=== PATIENT | female | born 1960 | race Caucasian/White ===

== ENCOUNTER → 2017-08-19 15:30 | Outpatient (CLI) | payer OTHER, SELFPAY ==
[2017-08-19 15:32] LABS: Bacteria 0 SEEN /hpf (None Seen); Mucous, Urine 0 SEEN /hpf (<or=2+)
[2017-08-19 15:57] LABS: Color, Urine Amber (Yellow); Glucose, Dipstick Normal (Normal); Ketone-Dipstick Negative (Negative); Leukocyte Esterase-Dipstick 100 /ul (Negative); Nitrite-Dipstick Negative (Negative); Occult Blood-Urine 250 /ul (Negative); Protein-Dipstick 30 mg/dl (Negative); Urine Bilirubin Dipstick Negative (Negative); Urine Clarity Cloudy (Clear); Urine Urobilinogen Normal (Normal); Urine pH 6.5 (5.0 - 8.0)
[2017-08-19 16:10] LABS: Amorphous Sediment 1+ URATE; Red Blood Cells-Urine 50-100 SEEN /hpf (0-5); Squamous Epithelial Cells - UA 5-10 SEEN /hpf (5-10); White Blood Cells 10-25 SEEN /hpf (0-5)
== END ==
PROVIDERS: Family Provider Preventive Medicine Occupational Medicine; PCP Preventive Medicine Occupational Medicine; Visit Provider Physician Assistant Surgical
DX: R30.0 Dysuria (principal)
CPT/HCPCS: 81001; 87086; 87088; 87186

== ENCOUNTER 2017-09-02 19:17 | Emergency (ER) | payer OTHER, SELFPAY ==
[2017-09-02 19:18] VITALS: BP 145/91; PULSE 93; RESP 18; TEMP 36.8; O2SAT 98; BMI 26.4
--- NOTE | 2017-09-02 19:40 | RAD_ITS ---
STUDY: X-RAY - RIGHT HAND REASON FOR EXAM: Female, 57 years old. Trauma TECHNIQUE: 3 view(s) of the hand. COMPARISON: None. FINDINGS: There is no evidence of fracture or dislocation. There are no significant degenerative changes. There are no radiodense foreign bodies. RAD/Hand Min 3 Views IMPRESSION: No fracture or dislocation. Electronically Signed: Massimo Mcmullen, at 20:02 EDT Tel , Service support ,
--- NOTE | 2017-09-02 20:16 | ED.DCSUM_ITS ---
- ER Visit Summary Date of Service: 09/02/17 Chief Complaint: Right hand pain History of Present Illness: The patient is a 57 F who presents with a right hand injury. She was running with her dog who went in front of her and she tripped and fell onto her right hand. She also scraped her right shoulder and right knee but states that those do not really hurt and is not really worried about those injuries. She is mainly concerned about her right hand. She has swelling and abrasion near the fifth finger. She states her pain is well controlled after applying ice. Physical Examination: Afebrile vitals are unremarkable Heart regular Lungs clear Soft tissue swelling with overlying abrasion over the right fifth MCP. Active full range of motion normal opposition of the digits normal sensation light touch and brisk capillary refill no wrist tenderness Test Results: Hand x-ray shows no fracture or dislocation Emergency Department Course and Treatment: Patient's pain is well controlled. She was advised on supportive care including rest ice elevation and anti- inflammatory use. She was discharged. Her tetanus is up-to-date. Treatment Plan: [] Disposition: Discharge Impression: Right hand contusion This note was generated with [employer] dictation software. It may contain incorrect words, spelling, and punctuation that were not noted in review of the chart prior to signing ED Disposition - Plan for ED Patient: Chief Complaint: Upper Extremity Injury Referrals: Carl Conklin DO [Primary Care Provider] -
--- NOTE | 2017-09-02 20:16 | ED.DEP ---
ED Disposition - Plan for ED Patient: Chief Complaint: Upper Extremity Injury Instructions: ED Contusion Upper Ext Referrals: Carl Conklin DO [Primary Care Provider] -
== END 2017-09-02 20:26 | disposition home or self-care (01) ==
PROVIDERS: Emergency Provider Emergency Medicine; Family Provider Preventive Medicine Occupational Medicine; PCP Preventive Medicine Occupational Medicine
DX: S60.221A Contusion of right hand, initial encounter (principal); W01.0XXA Fall on same level from slipping, tripping and stumbling without subsequent striking against object, initial encounter; Y93.02 Activity, running; Y92.9 Unspecified place or not applicable; Y99.9 Unspecified external cause status; G43.909 Migraine, unspecified, not intractable, without status migrainosus; Z79.82 Long term (current) use of aspirin; Z79.899 Other long term (current) drug therapy
CPT/HCPCS: 73130; 99282

== ENCOUNTER → 2018-01-10 07:55 | Outpatient (CLI) | payer BC, SELFPAY ==
--- NOTE | 2018-01-10 07:58 | BI_ITS ---
MAMMOGRAPHY - BILATERAL SCREENING REASON FOR EXAM: Female, 58 years old. Routine annual screening examination. PERTINENT HISTORY: Non-contributory. TECHNIQUE: Digital bilateral breast kate (3D mammographic acquisition) in the CC and MLO projections. 2-D mediolateral oblique (MLO) and craniocaudad (CC) views of both breasts were obtained. CAD: Full Field Digital Mammography with Computer Added Detection was performed. COMPARISON: Comparison is made with prior study dated October 17, 2016 and September 01, 2013. FINDINGS: Breast Composition: There are scattered areas of fibroglandular density. There are no dominant masses or suspicious calcifications. No other significant abnormalities are identified. There has been no significant change since the prior study. BI/SCREENING MAMM (CAD), BILAT IMPRESSION: Stable bilateral screening mammogram. Yearly follow-up mammogram recommended. (A) ASSESSMENT CATEGORY: BIRADS Category 1: Negative. A letter regarding these results will be sent to the patient by the facility within 30 days. Approximately 10% of breast cancers are not detected by mammography. A normal mammogram should not delay biopsy of a clinically suspicious abnormality. [id number] Electronically Signed: Dejon Schroeder MD at 9:24 EST Tel [phone], Service support ,
--- OUTSIDE RECORDS SUMMARY | 2018-03-06 18:56 | XMS RPT_ITS ---
:1960 Author Organization OHIP Care Team Providers Name Role Phone LYNDA CONKLIN Primary Care Unavailable DR. YAS ASENCIO DO Attending Unavailable LYNDA CONKLIN Attending Unavailable LYNDA CONKLIN Primary Care Unavailable Aaron Bruno Attending Unavailable Lynda Conklin Referring Unavailable Lynda Conklin Primary Care Unavailable Aaron Bruno Attending Unavailable Lynda Conklin Primary Care Unavailable Aaron Bruno Referring Unavailable Lynda Conklin Primary Care Unavailable Brandan Gautam Attending Unavailable Lynda Conklin Attending Unavailable Lynda Conklin Primary Care Unavailable Lynda Conklin Referring Unavailable PROBLEMS PROBLEMS DATE TYPE CONDITION / CODE ATTENDING STATUS SOURCE 10/07/2017 Admitting Generalized LYNDA CONKLIN [facility] Diagnosis hyperhidrosis / Foundation R61(ICD-10) Repository 10/07/2017 Admitting Encounter for MISALYNDA ARIAS [facility] Diagnosis screening for [facility] diseases of the Repository blood and blood-forming organs and certain disorders inv / Z13.0(ICD-10) 10/07/2017 Admitting Encounter for MISALYNDA Posada [facility] Diagnosis screening for [facility] diabetes mellitus / Repository Z13.1(ICD-10) 08/20/2017 Unknown R30.0 - Dysuria / Aaron Bruno Active Rick R30.0(ICD-10) [facility] Repository 08/19/2017 Unknown N39.0 - Urinary Aaron Bruno Active Rick tract infection, Community site not specified Hospital / N39.0(ICD-10) Repository 04/25/2017 Admitting Encounter for ELIF WU DR. Active [facility] Diagnosis general adult [facility] medical examination Repository without abnormal findings / Z00.00(ICD-10) PROCEDURES PROCEDURES No Procedure Records FoundRESULTS RESULTS SCREENING MAMM (CAD), Observed: 01/10/2018 Status: F Source: [facility] [place] 7:58 AM [facility] REPOSITORY [facility] Imaging Services [address] [facility] [place] [address] SCREENING MAMM (CAD), BILAT MR#: [id number] Acct: [id number] Name: XANDER PARRA Rep #: [id number] : 1960 F 57 From: Dejon Schroeder MD PCP: Lynda Conklin DO Status: REG CLI Study: SCREENING MAMM (CAD), BILAT Date of Exam: 01/10/18 Exam# [id number] Ordering Dr: Lynda Conklin DO MAMMOGRAPHY - BILATERAL SCREENING REASON FOR EXAM: Female, 58 years old. Routine annual screening examination. PERTINENT HISTORY: Non-contributory. TECHNIQUE: Digital bilateral breast kate (3D mammographic acquisition) in the CC and MLO projections. 2-D mediolateral oblique (MLO) and craniocaudad (CC) views of both breasts were obtained. CAD: Full Field Digital Mammography with Computer Added Detection was performed. COMPARISON: Comparison is made with prior study dated October 17, 2016 and September 01, 2013. FINDINGS: Breast Composition: There are scattered areas of fibroglandular density. There are no dominant masses or suspicious calcifications. No other significant abnormalities are identified. There has been no significant change since the prior study. BI/SCREENING MAMM (CAD), BILAT IMPRESSION: Stable bilateral screening mammogram. Yearly follow-up mammogram recommended. (A) ASSESSMENT CATEGORY: BIRADS Category 1: Negative. A letter regarding these results will be sent to the patient by the facility within 30 days. Approximately 10% of breast cancers are not detected by mammography. A normal mammogram should not delay biopsy of a clinically suspicious abnormality. [id number] Electronically Signed: Dejon Schroeder MD at 9:24 EST Tel [phone], Service support , CC: Lynda Conklin DO Back Tender Cloth Printing: Signed TSH Collected: 10/07/2017 Status: F Source: [facility] 9:43 AM [facility] EMERGENCY DEPARTMENT REPOSITORY TYPE CODE TESTS RESULT OUT OF RANGE REFERENCE UNITS LAB TSH(LOINC) 0.36-3.74 mcIU/mL TSH 1.68 Performed By: #### TSH, CRPHS, ESR, GFR, CMP #### [address] [address] #### CBC, ANEU, ADIFF #### [address] [address] CMP Collected: 10/07/2017 Status: F Source: [facility] 9:43 AM [facility] EMERGENCY DEPARTMENT REPOSITORY TYPE CODE TESTS RESULT OUT OF REFERENCE UNITS RANGE LAB GLU(LOINC) 70-105 mg/dL Glucose Level 96 LAB NA(LOINC) 136-145 mmol/L Sodium Level 141 LAB K(LOINC) 3.5-5.1 mmol/L Potassium Level 4.3 LAB CL(LOINC) 98-107 mmol/L Chloride 105 LAB CO2(LOINC) 22-29 mmol/L CO2 28 LAB EBAL(LOINC mEq/L ) Electrolyte Balance 8.0 LAB BUN(LOINC) 7-18 mg/dL BUN 12 LAB CRE(LOINC) 0.55-1.02 mg/dL Creatinine Lvl (s) 0.80 LAB BC(LOINC) 7-27 ratio BUN/Creatinine 15 Ratio LAB CA(LOINC) 8.4-10.2 mg/dL Calcium Lvl 9.2 LAB PROT(LOINC 6.4-8.2 G/dL ) Total Protein 7.7 LAB ALB(LOINC) 3.5-5.0 G/dL Albumin Level 4.2 LAB GLB(LOINC) G/dL Globulin 3.5 LAB AG(LOINC) 1.1-2.5 ratio A/G Ratio 1.2 LAB BILT(LOINC 0.2-1.0 mg/dL ) Bili Total 0.6 LAB AP(LOINC) 40-135 U/L Alk Phos 76 LAB AST(LOINC) 10-40 U/L AST/SGOT 21 LAB ALT(LOINC) 10-35 U/L ALT/SGPT 33 Performed By: #### TSH, CRPHS, ESR, GFR, CMP #### [place] [address] #### CBC, ANEU, ADIFF #### [address] [address] .GFR Collected: 10/07/2017 Status: F Source: [facility] 9:43 AM [facility] REPOSITORY TYPE CODE TESTS RESULT OUT OF REFERENCE UNITS RANGE LAB GFRAA(LOINC ml/min/1.73 ) sqm GFR 89 Solomon Islander Result Comment: GFR Population mean for , Non- Americans Ages 20-29 = 116 mL/min/1.73 sq.m. Ages 30-39 = 107 mL/min/1.73 sq.m. Ages 40-49 = 99 mL/min/1.73 sq.m. Ages 50-59 = 93 mL/min/1.73 sq.m. Ages 60-69 = 85 mL/min/1.73 sq.m. Ages 70+ = 75 mL/min/1.73 sq.m. Chronic Kidney Disease: Less than 60 mL/min/1.73 square meters End Stage Renal Disease: Less than 15 mL/min/1.73 square meters LAB GFRNO(LOINC) ml/min/1.73sqm GFR Non- 73 Result Comment: GFR Population mean for , Non- Americans Ages 20-29 = 116 mL/min/1.73 sq.m. Ages 30-39 = 107 mL/min/1.73 sq.m. Ages 40-49 = 99 mL/min/1.73 sq.m. Ages 50-59 = 93 mL/min/1.73 sq.m. Ages 60-69 = 85 mL/min/1.73 sq.m. Ages 70+ = 75 mL/min/1.73 sq.m. Chronic Kidney Disease: Less than 60 mL/min/1.73 square meters End Stage Renal Disease: Less than 15 mL/min/1.73 square meters Performed By: #### TSH, CRPHS, ESR, GFR, CMP #### [address] [address] #### CBC, ANEU, ADIFF #### [address] [address] CBC Collected: 10/07/2017 Status: F Source: [facility] 9:43 AM [facility] EMERGENCY DEPARTMENT REPOSITORY TYPE CODE TESTS RESULT OUT OF REFERENCE UNITS RANGE LAB WBC(LOINC) 4.60-10.80 10 3/mcL WBC 5.30 LAB RBCCT(LOINC 4.20-5.40 10 6/mcL ) RBC 4.80 LAB HGB(LOINC) 12.0-16.0 G/dL Hgb 15.1 LAB HCT(LOINC) 37.0-47.0 % Hct 42.9 LAB MCV(LOINC) 80.0-94.0 fL MCV 89.4 LAB MCH(LOINC) 27.0-31.2 pg High MCH 31.6 LAB MCHC(LOINC) 33.0-37.0 G/dL MCHC 35.3 LAB RDW(LOINC) 11.5-14.5 % RDW 13.3 LAB PLT(LOINC) 130-400 10 3/mcL Platelet 191 LAB MPV(LOINC) 7.4-10.4 fL MPV 8.7 Performed By: #### TSH, CRPHS, ESR, GFR, CMP #### [address] [address] #### CBC, ANEU, ADIFF #### [address] [address] .AUTO DIFF Collected: 10/07/2017 Status: F Source: [facility] 9:43 [facility] REPOSITORY TYPE CODE TESTS RESULT OUT OF REFERENCE UNITS RANGE LAB AKTHERYN(LOINC) 37.0-80.0 % Neutrophil % 56.0 LAB LYM(LOINC) 10.0-50.0 % Lymphocyte % 32.6 LAB MON(LOINC) 1.7-13.0 % Monocyte % 7.9 LAB EO(LOINC) 0.0-7.0 % Eosinophil % 3.1 LAB BAS(LOINC) 0.0-2.5 % Basophil % 0.4 LAB ABLYM(LOIN 0.77-3.85 10 3/mcL C) Lymphocyte, 1.70 Absolute LAB DONNA(LOINC 0.15-1.00 10 3/mcL ) Monocyte, 0.40 Absolute LAB AEOS(LOINC 0.00-0.40 10 3/mcL ) Eosinophil, 0.20 Absolute LAB ABAS(LOINC 0.00-0.19 10 3/mcL ) Basophil, 0.00 Absolute Performed By: #### TSH, CRPHS, ESR, GFR, CMP #### [place] [address] #### CBC, ANEU, ADIFF #### [address] [address] .NEUABS Collected: 10/07/2017 Status: F Source: [facility] 9:43 [facility] TYPE CODE TESTS RESULT OUT OF REFERENCE UNITS RANGE LAB ANEU(LOINC) 2.85-6.16 10 3/mcL Neutrophil, 3.00 Absolute Performed By: #### TSH, CRPHS, ESR, GFR, CMP #### [place] [address] #### CBC, ANEU, ADIFF #### [address] [address] CRPHS Collected: 10/07/2017 Status: F Source: [facility] 9:43 [facility] REPOSITORY TYPE CODE TESTS RESULT OUT OF REFERENCE UNITS RANGE LAB CRPHS(LOIN 0.20-3.00 mg/L C) CRP, High Sensitive 2.88 Result Comment: Relative Risk Category and Average hs-CRP Level: Higher Risk: > 5.0 mg/L Guidelines support that hs-CRP can be used as an independent predictor of increased coronary risk; however, hs-CRP results should only be interpreted in conjunction with other cardiac risk factors in establishing overall cardiac risk for a given patient. Performed By: #### TSH, CRPHS, ESR, GFR, CMP #### [address] [address] #### CBC, ANEU, ADIFF #### [place] [address] [place], [place] [address] ESR Collected: 10/07/2017 Status: F Source: [facility] 9:43 AM [facility] REPOSITORY TYPE CODE TESTS RESULT OUT OF REFERENCE UNITS RANGE LAB ESR(LOINC) 0-30 mm/hr Erythrocyte Sed Rate 3 Performed By: #### TSH, CRPHS, ESR, GFR, CMP #### [address] [address] #### CBC, ANEU, ADIFF #### [place] [address] [place], [place] [address] EMERGENCY DEPARTMENT Observed: 09/02/2017 Status: F Source: [facility] 8:16 PM [facility] REPOSITORY [facility] Medical Records Department [address] [place] [address] Emergency Department Summary 09/02/172013 MR#: [id number] Acct: [id number] Name: XANDER PARRA Rep #: [id number] : 1960 57 From: Brandan Gautam MD PCP: Lynda Conklin DO Status: REG ER - ER Visit Summary Date of Service: 09/02/17 Chief Complaint: Right hand pain History of Present Illness: The patient is a 57 F who presents with a right hand injury. She was running with her dog who went in front of her and she tripped and fell onto her right hand. She also scraped her right shoulder and right knee but states that those do not really hurt and is not really worried about those injuries. She is mainly concerned about her right hand. She has swelling and abrasion near the fifth finger. She states her pain is well controlled after applying ice. Physical Examination: Afebrile vitals are unremarkable Heart regular Lungs clear Soft tissue swelling with overlying abrasion over the right fifth MCP. Active full range of motion normal opposition of the digits normal sensation light touch and brisk capillary refill no wrist tenderness Test Results: Hand x-ray shows no fracture or dislocation Emergency Department Course and Treatment: Patient's pain is well controlled. She was advised on supportive care including rest ice elevation and anti-inflammatory use. She was discharged. Her tetanus is up-to-date. Treatment Plan: [] Disposition: Discharge Impression: Right hand contusion This note was generated with Freedcamp dictation software. It may contain incorrect words, spelling, and punctuation that were not noted in review of the chart prior to signing ED Disposition - Plan for ED Patient: Chief Complaint: Upper Extremity Injury Referrals: Lynda Conklin DO [Primary Care Provider] - What to do if you have Problems For any increased pain, shortness of breath, bleeding, nausea or vomiting, chest pain, or any unexpected problems, contact your Primary Care Provider. Call [facility] ([phone]) or report to the closest Emergency Room. Call 911 if necessary. 09/02/172015 <Electronically signed by Brandan Gautam MD> Date Brandan Gautam MD Cosigner Signature (If Indicated): Date CC: Lynda Conklin DO DISCHARGE INSTRUCTION Observed: 09/02/2017 Status: F Source: [facility] 8:16 PM [facility] REPOSITORY [facility] Medical Records Department [address] [place] [address] Discharge Instruction 09/02/172015 MR#: [id number] Acct: [id number] Name: XANDER PARRA Rep #: [id number] : 1960 57 From: Brandan Gautam MD PCP: Lynda Conklin DO Status: REG ER ED Disposition - Plan for ED Patient: Chief Complaint: Upper Extremity Injury Instructions: ED Contusion Upper Ext Referrals: Lynda Conklin DO [Primary Care Provider] - What to do if you have Problems For any increased pain, shortness of breath, bleeding, nausea or vomiting, chest pain, or any unexpected problems, contact your Primary Care Provider. Call [facility] ([phone]) or report to the closest Emergency Room. Call 911 if necessary. 09/02/172015 <Electronically signed by Brandan Gautam MD> Date Brandan Gautam MD Cosigner Signature (If Indicated): Date CC: Lynda Conklin DO HAND MIN 3 VIEWS Observed: 09/02/2017 Status: F Source: [facility] 7:33 PM [facility] REPOSITORY [facility] Imaging Services [address] [place] [address] Hand Min 3 Views MR#: [id number] Acct: [id number] Name: XANDER PARRA Rep #: [id number] : 1960 F 57 From: Massimo Mcmullen MD PCP: Lynda Conklin DO Status: REG ER Study: Hand Min 3 Views Date of Exam: 09/02/17 Exam# [id number] Ordering Dr: Provider, Ed P. STUDY: X-RAY - RIGHT HAND REASON FOR EXAM: Female, 57 years old. Trauma TECHNIQUE: 3 view(s) of the hand. COMPARISON: None. FINDINGS: There is no evidence of fracture or dislocation. There are no significant degenerative changes. There are no radiodense foreign bodies. RAD/Hand Min 3 Views IMPRESSION: No fracture or dislocation. Electronically Signed: Massimo Mcmullen, at 20:02 EDT Tel , Service support , CC: ED PHYSICIAN PROVIDER; Lynda Conklin DO Back Tender Cloth Printing: Signed URINALYSIS, COMPLETE Collected: 08/19/2017 Status: F Source: [facility] 3:31 PM [facility] REPOSITORY Order Comment: COLOR OF URINE MAY AFFECT DIPSTICK RESULTS. How was Urine Obtained? CLEAN CATCH TYPE CODE TESTS RESULT OUT OF RANGE REFERENCE UNITS LAB L400.3000 Yellow COLOR Normal Skyla LAB L400.3050 Clear Normal CLARITY Cloudy LAB L400.3200 Normal mg/dl Normal GLUCOSE, UR Normal LAB L400.3300 Negative mg/dL Normal BILIRUBIN URINE Negative LAB L400.3400 Negative mg/dl Normal KETONE UR Negative LAB L400.3465 1.002-1.030 Normal SP.GR. DIPSTX 1.010 LAB L400.3550 5.0 - 8.0 pH UR Normal 6.5 LAB L400.3600 Negative mg/dl High PROT 30 DIPSTX LAB L400.3700 Normal mg/dl Normal UROBILI Normal LAB L400.3750 Negative Normal NITRITE UR Negative LAB L400.3780 Negative /ul High OCCULT BLOOD-UR 250 LAB L400.3800 Negative /ul High LEUK ESTERASE 100 LAB L400.4050 0-5 /hpf WBC Normal 10-25 SEEN LAB L400.4100 0-5 /hpf Normal RBC-UA 50-100 SEEN LAB L400.4150 5-10 /hpf SQUAM Normal EPI 5-10 SEEN LAB L400.4300 None Seen /hpf 0 Normal BACTERIA SEEN LAB L400.4350 <or=2+ /hpf 0 Normal MUCUS, URINE SEEN LAB L400.4900 1+ Normal AMORPHOUS URATE Performed By: #### L400.0001, M100.0650 #### [facility] [address] [place], [place], [address] Observed: 08/19/2017 Status: F Source: [facility]ICK CULTURE, URINE 3:31 PM [facility] REPOSITORY Urine Culture ORGANISM 1: Presumptive E. coli [place] Count >100,000 Presumptive E. coli: REACTION Amoxacillin/Clavulanic Acid $ <=2 S Ampicillin $ <=2 S Ampicillin/Sulbactam $ <=2 S Cefazolin $ <=4 S Cefepime $ <=1 S Ceftriaxone $ <=1 S Ciprofloxacin $ <=0.25 S ESBL - Ertapenim $$$ <=0.5 S Gentamicin $ <=1 S Imipenem *NF <=0.25 S Levofloxacin $ <=0.12 S Nitrofurantoin $ <=16 S Piperacillin/Tazobactam $$ <=4 S Tobramycin $ <=1 S Trimethoprim/Sulfametho $ <=20 S (NF) indicates non-formulary drug at [facility]. Approval by Infectious Disease Specialist required before non-formulary drugs may be ordered and/or dispensed. Performed By: #### L400.0001, M100.0650 #### [facility] [address] [place], [place], [address] URGENT CARE VISIT Observed: 08/19/2017 Status: F Source: [facility] REPORT 10:37 AM [facility] REPOSITORY [facility] [address] [place] [address] [address] [place], [place] [id number] OFFICE VISIT Date of Service: 08/19/17 MR#: [id number] Acct: [id number] Name: XANDER PARRA Rep #: [id number] : 1960 Provider: Aaron ROMAN Age/Sex: 57/F [facility] [facility] Status: Signed Intake Vital Signs08/19/17 Height 5 ft 6 in 08/19/17 Weight: 157 lb 08/19/17 Body Mass Index (BMI) 25.3 08/19/17 Blood Pressure 122/74 Intake Visit Reasons: Urinary tract infection Certified Nurse Aide Required: No Is patient in pain?: No Allergies No Known Allergies Allergy (Verified 08/19/17 09:04) Medications Aspirin [Aspirin, Baby] 81 mg PO QHS 03/17/16 [History Confirmed 08/19/17] Sumatriptan Succinate [Imitrex] 100 mg PO DAILY PRN PRN 03/17/16 [History Confirmed 08/19/17] nitrofurantoin monohydrate/macrocrystals 100 mg capsule 1 cap PO Q12H 7 Days #14 cap 08/19/17 [Rx Confirmed 08/19/17] phenazopyridine 100 mg tablet 100 mg PO TID PRN 0 Days #7 tab 08/19/17 [Rx Confirmed 08/19/17] PFSH Surgical History History of (Acute) History of hysterectomy (Acute) Social History Smoking Status: Never smoker alcohol intake: never HPI HPI Details: XANDER PARRA, is a 57 F who presents to the office today for complaint of dysuria, urinary frequency and new onset hematuria. Patient states she has had these symptoms for the past 2-3 days with the hematuria starting this morning. She also reports a history of UTIs with similar type symptoms. She denies any abdominal or pelvic pain. She does however complain of some dull low back pain. She denies any loss of bowel or bladder control. No fever, chills, sweats. No nausea, vomiting, diarrhea. No other associated symptoms or alleviating/aggravating factors. ROS Const Constitutional: No body ache, chills or fever(s) Resp Respiratory: No shortness of breath Cardio Cardiology: No lightheadedness, palpitations or irregular heart rhythm Gastro GI: No abdominal pain Genitourinary-Female: Positive for burning urination, painful urination, urinary frequency, blood in urine and urinary urgency; no pelvic pain or painful intercourse Neuro Neurology: No confusion or behavioral changes Psych Psychiatric: No confusion, No behavioral changes Exam Const General: cooperative, healthy appearing Resp Effort AND Inspection: normal respiratory effort Auscultation: Bilateral: Clear to Auscultation Cardio Rate: regular rate Rhythm: regular rhythm GI Auscultation: normal bowel sounds General: No CVA tenderness Psych Appearance: grossly normal Mental Status: mental status grossly normal Results [facility] Office Urine Color SKYLA Last Edit by Harriet Rhoades on 08/19/17 09:17 Assessment AND Plan 1. Acute cystitis with hematuria N30.01 Status Acute Plan Macrobid and Pyridium as prescribed today. Encouraged to get plenty of rest, drink lots of clear liquids, and use Tylenol or Ibuprofen (unless contraindicated) for fever and comfort. Patient also educated on other symptomatic management techniques. To be seen in 7-10 days if no improvement; sooner if worsening of symptoms. Patient advised of potential red flags and when appropriate report to the ED. Patient verbalized understanding of all the above. This note was generated with Freedcamp dictation software. It may contain incorrect words, spelling, and punctuation that were not noted in checking the note before signing. Plan Detail Other Orders Orders: Other Medications New: nitrofurantoin monohyd/m-cryst 100 mg administer with a meal1 cap PO Q12H 7 days N39.0 /food; swallow whole; do not open, crush, dissolve , or chew Coding Level of Care Code Off vis,new,level 3 Diagnoses Acute cystitis with hematuria N30.01 Urinary tract infection type: acute cystitis Hematuria presence: with hematuria 08/19/17 1037 <Electronically signed by Aaron ROMAN> Date Aaron ROMAN Cosigner Signature: Date (if applicable) CC: .GFR Collected: 04/25/2017 Status: F Source: [facility] [facility] 9:38 AM [facility] EMERGENCY DEPARTMENT REPOSITORY TYPE CODE TESTS RESULT OUT OF REFERENCE UNITS RANGE LAB GFRAA(LOINC ml/min/1.73 ) sqm GFR 99 Solomon Islander Result Comment: GFR Population mean for , Non- Americans Ages 20-29 = 116 mL/min/1.73 sq.m. Ages 30-39 = 107 mL/min/1.73 sq.m. Ages 40-49 = 99 mL/min/1.73 sq.m. Ages 50-59 = 93 mL/min/1.73 sq.m. Ages 60-69 = 85 mL/min/1.73 sq.m. Ages 70+ = 75 mL/min/1.73 sq.m. Chronic Kidney Disease: Less than 60 mL/min/1.73 square meters End Stage Renal Disease: Less than 15 mL/min/1.73 square meters LAB GFRNO(LOINC) ml/min/1.73sqm GFR Non- >60 Result Comment: GFR Population mean for , Non- Americans Ages 20-29 = 116 mL/min/1.73 sq.m. Ages 30-39 = 107 mL/min/1.73 sq.m. Ages 40-49 = 99 mL/min/1.73 sq.m. Ages 50-59 = 93 mL/min/1.73 sq.m. Ages 60-69 = 85 mL/min/1.73 sq.m. Ages 70+ = 75 mL/min/1.73 sq.m. Chronic Kidney Disease: Less than 60 mL/min/1.73 square meters End Stage Renal Disease: Less than 15 mL/min/1.73 square meters Performed By: #### GFR, LIPID, CMP #### [place] [address] [place], [place] [address] CMP Collected: 04/25/2017 Status: F Source: [place] 9:38 AM [facility] REPOSITORY TYPE CODE TESTS RESULT OUT OF REFERENCE UNITS RANGE LAB 1547-9 70-105 mg/dL GLUCOSE 94 LAB NA(LOINC) 136-146 mEq/L Sodium Level 140 LAB K(LOINC) 3.5-5.1 mEq/L Potassium Level 4.6 LAB CL(LOINC) 98-107 mEq/L Chloride 104 LAB CO2(LOINC) 22-29 mEq/L CO2 29 LAB EBAL(LOINC mEq/L ) Electrolyte Balance 7.0 LAB BUN(LOINC) 7.0-18.0 mg/dL BUN 10.1 LAB CRE(LOINC) 0.6-1.2 mg/dL Creatinine Lvl (s) 0.7 LAB BC(LOINC) 7-27 ratio BUN/Creatinine 14 Ratio LAB CA(LOINC) 8.4-10.2 mg/dL Calcium Lvl 9.2 LAB PROT(LOINC 6.0-8.3 G/dL ) Total Protein 7.0 LAB ALB(LOINC) 3.5-5.0 G/dL Albumin Level 4.5 LAB GLB(LOINC) G/dL Globulin 2.5 LAB AG(LOINC) 1.1-2.5 ratio A/G Ratio 1.8 LAB BILT(LOINC 0.2-1.0 mg/dL ) Bili Total 0.4 LAB AP(LOINC) 40-135 IU/L Alk Phos 80 LAB AST(LOINC) 10-40 IU/L AST/SGOT 20 LAB ALT(LOINC) 10-35 IU/L ALT/SGPT 25 Performed By: #### GFR, LIPID, CMP #### [place] [address] [place], [place] [address] LIPID Collected: 04/25/2017 Status: F Source: [facility] 9:38 AM [facility] REPOSITORY TYPE CODE TESTS RESULT OUT OF REFERENCE UNITS RANGE LAB CHOL(LOINC 131-200 mg/dL ) Cholesterol High 225 Result Comment: Cholesterol Reference Interval: Less than 200 Desirable 200-239 Borderline high risk 240 and above High risk LAB TRIG(LOINC) 40-150 mg/dL Triglycerides 78 Result Comment: Triglyceride Reference Interval: Less than 150 Normal 150-199 Borderline high risk 200-499 High risk 500 or higher Very high risk LAB HD(LOINC) 35-90 mg/dL HDL Cholesterol 70 Result Comment: HDL Reference Interval: Less than 40 Low - high risk 60 or above Optimal/lowers risk LAB LDL(LOINC) 0-130 mg/dL LDL High Cholesterol 139 Result Comment: LDL is a calculated result and requires a 12-hr fast. LDL Reference Interval: Less than 100 Optimal 100-129 Near or above optimal 130-159 Borderline high risk 160-189 High risk 190 and above Very high risk Performed By: #### GFR, LIPID, CMP #### [place] [address] [place], [place] [address] ALLERGIES ALLERGIES DATE TYPE / CODE NAME / CODE REACTION SEVERITY SOURCE 09/02/2017 Drug No Known Unknown [facility] Allergy/4160 Allergies/F00 Hospital 23900(SNOMED [id number](RXNOR Repository CT) M) ENCOUNTERS ENCOUNTERS ADMIT/DISCHARGE ACCOUNT NUMBER ADMITTING ENCOUNTER LOCATION SOURCE CLASS 01/10/2018 [id number] Ambulatory [facility] ding:OPBI Repository 10/07/2017/10/12/19 [id number] Ambulatory DIONNA Dionna [address] [place] [address] ding:[facility] Repository 09/02/2017/09/03/19 [id number] Emergency [address] ding:ED Repository 08/19/2017 [id number] Ambulatory [facility] ding:LABSPEC Repository 08/19/2017/08/20/19 [id number] Ambulatory BMSBuilding: [address] Repository 04/25/2017/04/30/19 [id number] Ambulatory BBuilding:DR Dionna[address] Repository PAYERS PAYERS ENCOUNTER GUARANTOR PAYER SUBSCRIBER SOURCE 01/10/2018 CICI D Primary CICI D [place] [id number] Insurance:Ki MENDOSAELMANDOB: Community PARTRIDGE Number: [id number] [id number] Repository [place] [address]Gqd: Date:[id number] [address]IS[place]JU[place], [place] () [id number]: 01/10/2018 Secondary NOT GIVENUNK Rick Insurance:SELF PAY [facility] Number: Effective Repository Date:2017-12-01 10/07/2017 Critical access hospital MUSSELMANDOB: Insurance:TOM INGA DASHMANDOB: [facility] [id number] Repository [place] Number: [facility]LY [facility], [id number] [place], [place] [address]Msc: Date:2017-10-07 - [place] [address]Who: [id number] () Name:[facility] BOX ()Tel: [phone], [place] 000-0000 () 41909OO: 09/02/2017 Cici D Primary Cici D [place] [id number] Insurance:ANTHDANIAL DashmanDOB: [facility] [place] EXCHANGE PLANPolic [id number], Number: Repository [place] [address]Lxd: [id number] Date:[id number] BOX () [id number], [place] [address]JP: 09/02/2017 Secondary NOT GIVENUNK Rick Insurance:SELF PAY [facility] Number: Effective Repository Date:2017-09-02 08/19/2017 Cici D Primary Cici D [place] [id number] Insurance:ANTHEM IndyelmanDOB: [facility] [place] [facility] [id number], Number: Repository [place] [id number]: [id number] Date:[id number] BOX () [id number] [place] [address]LQ: 08/19/2017 Secondary NOT GIVENUNK Rick Insurance:SELF PAY [facility] Number: Effective Repository Date:2017-08-19 08/19/2017 [place] [address] Insurance:ANTHEM MusselmanDOB: [facility] [place] [facility] [id number] [facility], Number: Repository [place] [address]Efx: [id number] Date:[id number] BOX () [id number] [place] [address]FJ: 08/19/2017 Secondary NOT GIVENUNK [place] Insurance:SELF PAY [facility] Number: Effective Repository Date:2017-08-19 04/25/2017 Critical access hospital MUSSELMANDOB: Insurance:ANTHEM BLUE MUSSELMANDOB: [facility] CROSS COMMERCIALPolicy [id number] Repository [place] Number: [place] [facility], [id number] [facility], [place] [address]Rht: Date:2016-08-24 [place] [address]Nyn: [id number] () Name:KEVIN HONG ()Tel: [phone], [place] 000-0000 () [id number]:
== END ==
PROVIDERS: Family Provider Preventive Medicine Occupational Medicine; PCP Preventive Medicine Occupational Medicine; Referring Provider Preventive Medicine Occupational Medicine; Visit Provider Preventive Medicine Occupational Medicine
DX: Z12.31 Encounter for screening mammogram for malignant neoplasm of breast (principal)
CPT/HCPCS: 77063; 77067

== ENCOUNTER → 2019-01-25 07:16 | Outpatient (CLI) | payer BC, SELFPAY ==
--- NOTE | 2019-01-25 07:19 | BI_ITS ---
MAMMOGRAPHY - BILATERAL SCREENING REASON FOR EXAM: Female, 59 years old. Routine annual screening examination. PERTINENT HISTORY: Non-contributory. TECHNIQUE: Digital bilateral breast sam (3D mammographic acquisition) in the CC and MLO projections. 2-D mediolateral oblique (MLO) and craniocaudad (CC) views of both breasts were obtained. CAD: Full Field Digital Mammography with Computer Added Detection was performed. COMPARISON: Comparison is made with prior study dated January 10, 2018 and October 17, 2016. FINDINGS: Breast Composition: There are scattered areas of fibroglandular density. There are no dominant masses or suspicious calcifications. No other significant abnormalities are identified. There has been no significant change since the prior study. BI/SCREEN MAMM (CAD) W/SAM BILAT IMPRESSION: Stable bilateral screening mammogram. Yearly follow-up mammogram recommended. (A) ASSESSMENT CATEGORY: BIRADS Category 1: Negative. A letter regarding these results will be sent to the patient by the facility within 30 days. Approximately 10% of breast cancers are not detected by mammography. A normal mammogram should not delay biopsy of a clinically suspicious abnormality. [id number] Electronically Signed: Dejon Schroeder, at 8:29 EST , Service support ,
== END ==
PROVIDERS: Family Provider Preventive Medicine Occupational Medicine; PCP Preventive Medicine Occupational Medicine; Referring Provider Preventive Medicine Occupational Medicine; Visit Provider Preventive Medicine Occupational Medicine
DX: Z12.31 Encounter for screening mammogram for malignant neoplasm of breast (principal)
CPT/HCPCS: 77063; 77067

== ENCOUNTER → 2019-02-17 14:29 | Outpatient (CLI) | payer BC, SELFPAY ==
[2019-02-16 17:27] VITALS: BMI 26.4
[2019-02-17 14:38] LABS: Mucous, Urine 0 SEEN /hpf (<or=2+); Red Blood Cells-Urine 0 SEEN /hpf (0-5)
[2019-02-17 14:49] LABS: Color, Urine Yellow (Yellow); Glucose, Dipstick Normal (Normal); Ketone-Dipstick 15 mg/dl (Negative); Leukocyte Esterase-Dipstick 500 /ul (Negative); Nitrite-Dipstick Negative (Negative); Occult Blood-Urine Negative /ul (Negative); Protein-Dipstick Negative (Negative); Specific Gravity, Urine 1.025 (1.002-1.030); Urine Clarity Sl. Cloudy (Clear); Urine Urobilinogen 1 mg/dl (Normal)
[2019-02-17 14:50] LABS: Urine Bilirubin Dipstick 1 mg/dL (Negative)
[2019-02-17 14:55] LABS: Bacteria 1+ /hpf (None Seen); Squamous Epithelial Cells - UA 0-5 SEEN /hpf (5-10); White Blood Cells 25-50 SEEN /hpf (0-5)
== END ==
PROVIDERS: Family Provider Preventive Medicine Occupational Medicine; PCP Preventive Medicine Occupational Medicine; Referring Provider Physician Assistant; Visit Provider Physician Assistant
DX: R10.9 Unspecified abdominal pain (principal)
CPT/HCPCS: 81001; 87086; 87088; 87186

== ENCOUNTER 2019-12-21 20:35 | Emergency (ER) | payer BC, SELFPAY ==
[2019-03-14 11:33] VITALS: BMI 26.4
[2019-12-21 20:36] VITALS: BP 153/90; PULSE 80; RESP 18; TEMP 36.6; O2SAT 99; BMI 25.0
[2019-12-21 20:40] VITALS: BP 153/90; PULSE 86; RESP 24; O2SAT 99
--- NOTE | 2019-12-21 20:54 | EKG12_ITS ---
Test Reason : CP Blood Pressure : / mmHG Vent. Rate : 076 BPM Atrial Rate : 076 BPM P-R Int : 154 ms QRS Dur : 098 ms QT Int : 404 ms P-R-T Axes : 065 016 050 degrees QTc Int : 454 ms Normal sinus rhythm Incomplete right bundle branch block Borderline ECG Confirmed by NICOLE EATON, OMER ([id number]), slot editor DILLAN SAINI ([id number]) on 12/27/2019 1:01:36 PM Referred By: CL Confirmed By:BERENICE RIVERA MD
--- NOTE | 2019-12-21 20:55 | ED.VIS.GEN ---
History of Present Illness Chief Complaint: Chest Pain Informant: Patient Narrative: 59-year-old female with past medical history of anxiety presents with concern for chest pain. States it began approximately 1-1/2 hours ago. States it began at rest. Burning in nature in her upper epigastrium and radiating to her left shoulder. Admits to some mild nausea. Admits to mild shortness of breath. Denies any diaphoresis. Patient is not a current smoker. Past Medical History - Allergies and Home Meds Allergies/Adverse Reactions: Allergies No Known Allergies Allergy (Verified 12/21/19 20:36) Primary Care Physician: Carl Conklin DO [Primary Care Provider] - Prior records reviewed: Yes Past Medical History: - - anxiety Surgical History: hysterectomy - 3 c/s, - Lives: Spouse/ Significant Other Smoking Status: Never smoker - Family History Maternal Family History: Reports: - - mother side with brain cancer. Paternal Family History: Reports: Heart Disease, - - cad and cabg in father at 49 Review of Systems General: Denies: Chills, Fever, Sweats Eyes: Denies: Visual changes - bilaterally, Diplopia ENT: Denies: Rhinorrhea, Sore throat Cardiovascular: Reports: Chest pain. Denies: Palpitations Respiratory: Reports: Dyspnea. Denies: Cough, Dyspnea on exertion Gastrointestinal: Denies: Abdominal pain, Nausea, Vomiting, Diarrhea, Melena, Hematochezia Genitourinary: Denies: Dysuria, Hematuria, Frequency Musculoskeletal: Denies: Back pain, Extremity Pain Skin: Denies: Rash, Wounds Neurological: Denies: Headache, Weakness, Numbness Physical Exam Vital Signs/Narrative: Vital Signs Temp Pulse Resp BP Pulse Ox 12/21/19 20:40 86 24 H 153/90 H 99 12/21/19 20:36 97.8 F 80 18 153/90 H 99 Inital Vital Signs reviewed: Yes General: Well nourished, Well developed, No Acute Distress Head: Normocephalic, Atraumatic Eyes: Perrl, EOMI ENT: Moist mucous membranes, No rhinorrhea Neck: Supple, Nontender Cardiovascular: Regular rate, Regular rhythm, No murmurs Respiratory: No distress, CTA bilaterally, Chest nontender Abdomen: Soft, Nontender, Nondistended, Normal bowel sounds Back: Nontender, Normal Inspection Extremities: Nontender, No edema Skin: Normal color, No rash Neurological: Alert, Oriented x3, Cranial nerves II-XII grossly intact, Normal Strength, Normal Sensation Psychological: Normal affect, Normal Mood Diagnostic/Tx/Re-eval Chest X-Ray - ED: 1 View, Read by ED Physician, Normal Clinical Impression(s) from Imaging Studies Chest X-Ray 12/21/19 21:30 IMPRESSION: No acute pulmonary findings. Electronically Signed: Tariq Phillips MD at 22:02 EST Tel , Service support , Laboratory Data 12/21/19 12/21/19 20:45 20:45 WBC 9.2 RBC 4.34 Hgb 13.6 Hct 39.5 MCV 91.0 MCH 31.3 MCHC 34.4 RDW Std Deviation 42.0 RDW Coeff of Giselle 12.6 Plt Count 190 MPV 9.5 Immature Gran % (Auto) 0.300 Neut % (Auto) 70.1 H Lymph % (Auto) 22.4 [place] % (Auto) 6.1 Eos % (Auto) 0.9 Baso % (Auto) 0.2 Absolute Neuts (auto) 6.5 Absolute Lymphs (auto) 2.06 Nucleated RBC % 0 Sodium 140 Potassium 3.5 Chloride 105 Carbon Dioxide 26.0 Anion Gap 9 BUN 9 Creatinine 0.87 Estim Creat Clear Calc 61.10 Est GFR (MDRD) Af Amer 85 Est GFR (MDRD) Non-Af 70 BUN/Creatinine Ratio 10.4 Glucose 106 Calcium 9.2 Troponin I < 0.015 Lipase 144 - Rhythm Strip Rhythm Strip: Sinus Rhythm Rate: 76 Ectopy: None - EKG Initial EKG Interpretation: Sinus Rhythm - Sinus rhythm at 76 bpm. WI interval of 154 ms. QTC of 454 ms. No evidence of acute ischemia. - Medical Decision Making Patient appears well nontoxic. EKG shows no acute ischemia. 2 troponin by 3 hours negative. Patient has a heart score of 3. Patient be discharged home to follow-up with her primary care provider and get an outpatient stress test. Asked to return for any new or worsening symptoms. Patient agreeable and discharged home in stable condition. Impression: 1. Atypical chest pain ED Disposition - Plan for ED Patient: Disposition: Home or Assisted Living Instructions: ED Chest Pain Atypical Unkn Cause Referrals: Carl Conklin DO [Primary Care Provider] - 2 Days
[2019-12-21] MEDS: Aspirin 81 MG TAB.CHEW 324 MG PO (21:12)
[2019-12-21 21:21] LABS: Absolute Lymphocyte Count 2.06 X10^3/uL (0.83-4.51); Absolute Neutrophil Count 6.5 X10^3/uL (2.0-7.7); Basophil# 0.02 X10^3/uL; Basophil% 0.2 % (0-1); Eosinophil# 0.08 X10^3/uL; Eosinophils% 0.9 % (0-5); Hematocrit 39.5 % (37-47); Hemoglobin 13.6 g/dL (12.0-15.0); Lymphocyte # 2.06 X10^3/ul (4.0); Lymphocyte % 22.4 % (19-41); Mean Corp Hgb Conc 34.4 g/dL (32-36); Mean Corpuscular Hgb 31.3 pg (27.0-32.0); Mean Platelet Vol. 9.5 fl (6.2-12.0); Monocyte# 0.56 X10^3/uL; Monocyte% 6.1 % (0-10); NRBC Flagged by Analyzer 0 % (0-5); Neutrophil # 6.46 X10^3/uL (2.7-7.7); Neutrophil % 70.1 % (47-70); Platelet Count 190 K/mm3 (150-450); RBC Distribution Width CV 12.6 % (11.6-14.6); Red Blood Count 4.34 M/mm3 (4.2-5.4); White Blood Count 9.2 K/mm3 (4.4-11.0)
--- NOTE | 2019-12-21 21:30 | RAD_ITS ---
STUDY: X-RAY CHEST REASON FOR EXAM: Female, 59 years old. 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 TECHNIQUE: Single frontal view of the chest. COMPARISON: To 517 FINDINGS: The lungs are clear and expanded. There is no demonstrated pleural abnormality. Normal size heart. Normal mediastinum and edy. Normal visualized pulmonary arteries. Normal visualized aortic arch and descending thoracic aorta. Normal visualized thoracic spine. Remote left rib trauma. There is no demonstrated abnormality of the visualized soft tissue structures of the upper abdomen. RAD/Chest 1 View (Portable) IMPRESSION: No acute pulmonary findings. Electronically Signed: Tariq Phillips MD at 22:02 EST Tel , Service support ,
[2019-12-21 21:33] LABS: Anion Gap 9 (5-15); BUN 9 mg/dL (7-18); BUN/Creat Ratio 10.4 RATIO (10-20); Calcium,Total 9.2 mg/dL (8.5-10.1); Chloride 105 mmol/L (98-107); Creatinine, Serum 0.87 mg/dL (0.55-1.02); EST Glomerular Filtration Rate 70 mL/min (>60); Est Glom Filt Rate - Afr Amer 85 mL/min (>60); Glucose 106 mg/dL (74-106); Lipase 144 U/L (73-393); Potassium 3.5 mmol/L (3.5-5.1); Sodium Level 140 mmol/L (136-145)
[2019-12-21 21:37] VITALS: BP 138/85; PULSE 74; RESP 18; O2SAT 96
[2019-12-21 22:36] VITALS: BP 131/78; PULSE 72; RESP 20; O2SAT 95
--- NOTE | 2019-12-21 23:40 | ED.RN ---
support given to patient and discussed starting counseling (has number to call). pt lost her father this year and then her brother committed suicide. pt appreciative of support given.
[2019-12-21 23:42] VITALS: BP 129/82; PULSE 68; RESP 18; O2SAT 97
[2019-12-22 00:20] VITALS: BP 121/82; PULSE 66; RESP 16; O2SAT 96
== END 2019-12-22 00:28 | disposition home or self-care (01) ==
PROVIDERS: Emergency Provider Emergency Medicine; PCP Preventive Medicine Occupational Medicine
DX: R07.89 Other chest pain (principal); F41.9 Anxiety disorder, unspecified; Z82.49 Family history of ischemic heart disease and other diseases of the circulatory system
CPT/HCPCS: 71045; 80048; 83690; 84484; 85025; 93005; 99284; A4216

== ENCOUNTER → 2020-03-02 13:22 | Outpatient (CLI) | payer BC, SELFPAY ==
--- NOTE | 2020-03-02 13:26 | BI_ITS ---
MAMMOGRAPHY - BILATERAL SCREENING REASON FOR EXAM: Female, 60 years old. Routine annual screening examination. PERTINENT HISTORY: Non-contributory. TECHNIQUE: Digital bilateral breast sam (3D mammographic acquisition) in the CC and MLO projections. 2-D mediolateral oblique (MLO) and craniocaudad (CC) views of both breasts were obtained. CAD: Full Field Digital Mammography with Computer Added Detection was performed. COMPARISON: Comparison is made with prior examination 01/25/2019 and 01/10/2018. FINDINGS: Breast Composition: The breasts are heterogeneously dense, which may obscure small masses. There are no dominant masses or suspicious calcifications. No other significant abnormalities are identified. There has been no significant change since the prior study. BI/SCRN MAMM (CAD)W/SAM BILAT IMPRESSION: Stable bilateral screening mammogram. Yearly follow-up mammogram recommended. (A) ASSESSMENT CATEGORY: BIRADS Category 1: Negative. A letter regarding these results will be sent to the patient by the facility within 30 days. Approximately 10% of breast cancers are not detected by mammography. A normal mammogram should not delay biopsy of a clinically suspicious abnormality. [id number] Electronically Signed: Dejon Schroeder MD at 14:28 EST , Service support ,
== END ==
PROVIDERS: PCP Preventive Medicine Occupational Medicine; Referring Provider Preventive Medicine Occupational Medicine; Visit Provider Preventive Medicine Occupational Medicine
DX: Z12.31 Encounter for screening mammogram for malignant neoplasm of breast (principal)
CPT/HCPCS: 77063; 77067

== ENCOUNTER 2021-03-05 12:28 | Outpatient (CLI) | payer OTHER, SELFPAY ==
--- NOTE | 2021-03-05 12:32 | BI_ITS ---
MAMMOGRAPHY - BILATERAL SCREENING REASON FOR EXAM: Female, 61 years old. Routine annual screening examination. PERTINENT HISTORY: Non-contributory. TECHNIQUE: Digital bilateral breast sam (3D mammographic acquisition) in the CC and MLO projections. 2-D mediolateral oblique (MLO) and craniocaudad (CC) views of both breasts were obtained. CAD: Full Field Digital Mammography with Computer Added Detection was performed. COMPARISON: Comparison is made with prior study dated 08/30/2020 and 01/25/2019. FINDINGS: Breast Composition: The breasts are heterogeneously dense, which may obscure small masses. There are no dominant masses or suspicious calcifications. No other significant abnormalities are identified. There has been no significant change since the prior study. BI/SCRN MAMM (CAD)W/SAM BILAT IMPRESSION: Stable bilateral screening mammogram. Yearly follow-up mammogram recommended. (A) ASSESSMENT CATEGORY: BIRADS Category 1: Negative. A letter regarding these results will be sent to the patient by the facility within 30 days. Approximately 10% of breast cancers are not detected by mammography. A normal mammogram should not delay biopsy of a clinically suspicious abnormality. [id number] Electronically Signed: Dejon Schroeder MD at 13:13 EST , Service support ,
== END 2021-03-05 23:59 | disposition short-term general hospital (02) ==
LOC: OPBI 12:30
PROVIDERS: PCP Preventive Medicine Occupational Medicine; Referring Provider Preventive Medicine Occupational Medicine; Visit Provider Preventive Medicine Occupational Medicine
DX: Z12.31 Encounter for screening mammogram for malignant neoplasm of breast (principal)
CPT/HCPCS: 77063; 77067

== ENCOUNTER 2021-04-10 04:50 | Emergency (ER) | payer OTHER, SELFPAY ==
[2021-04-10 04:50] VITALS: BP 130/86; PULSE 74; RESP 18; O2SAT 99
[2021-04-10 04:51] VITALS: BP 138/85; PULSE 72; RESP 21; TEMP 36.6; O2SAT 99; BMI 28.2
--- NOTE | 2021-04-10 04:56 | RAD_ITS ---
STUDY: X-RAY CHEST REASON FOR EXAM: Female, 61 years old patient with chest pain. TECHNIQUE: Single AP portable view of the chest. COMPARISON: 12/21/2019. FINDINGS: Cardiac monitoring leads are present. The lungs are clear and hyperexpanded. There is no demonstrated pleural abnormality. Normal size heart. Normal mediastinum and edy. Normal visualized pulmonary arteries. There is atherosclerotic tortuosity of the aortic arch and descending thoracic aorta. There is demineralization of the osseous structures. Normal visualized ribs, clavicles, and shoulders. There is no demonstrated abnormality of the visualized soft tissue structures of the upper abdomen. RAD/Chest 1 View (Portable) IMPRESSION: No radiographic evidence of acute cardiopulmonary disease. Electronically Signed: Kimberly Barnhart MD at 5:50 EST ,
--- NOTE | 2021-04-10 04:56 | EKG12_ITS ---
Test Reason : CP Blood Pressure : / mmHG Vent. Rate : 068 BPM Atrial Rate : 068 BPM P-R Int : 150 ms QRS Dur : 098 ms QT Int : 418 ms P-R-T Axes : 061 005 043 degrees QTc Int : 444 ms Normal sinus rhythm Normal ECG Confirmed by BECCA EATON, STEPHANIE ([id number]), design editor REID DE LEON ([id number]) on 04/12/2021 1:29:23 PM Referred By: JANETH Confirmed By:STEPHANIE HUDSON MD
[2021-04-10 05:06] LABS: Absolute Lymphocyte Count 1.78 X10^3/uL (0.83-4.51); Absolute Neutrophil Count 6.8 X10^3/uL (2.0-7.7); Basophil# 0.02 X10^3/uL; Basophil% 0.2 % (0-1); Eosinophil# 0.12 X10^3/uL; Eosinophils% 1.3 % (0-5); Hematocrit 41.1 % (37-47); Hemoglobin 15.1 g/dL (12.0-15.0); Lymphocyte # 1.78 X10^3/ul (0.83-4.51); Lymphocyte % 19.2 % (19-41); Mean Corp Hgb Conc 36.7 g/dL (32-36); Mean Corpuscular Hgb 31.7 pg (27.0-32.0); Mean Corpuscular Volume 86.2 fL (81-99); Mean Platelet Vol. 9.2 fl (6.2-12.0); Monocyte# 0.54 X10^3/uL; Monocyte% 5.8 % (0-10); NRBC Flagged by Analyzer 0 % (0-5); Neutrophil # 6.75 X10^3/uL (2.7-7.7); Neutrophil % 73.1 % (47-70); Platelet Count 227 K/mm3 (150-450); RBC Distribution Width CV 12.3 % (11.6-14.6); RBC Distribution Width SD 39.1 fl (35.1-43.9); Red Blood Count 4.77 M/mm3 (4.2-5.4); White Blood Count 9.3 K/mm3 (4.4-11.0)
--- NOTE | 2021-04-10 05:13 | EDS_ITS ---
HPI History of Present Illness Chief Complaint: Chest Pain Narrative Narrative: 61-year-old female presenting for evaluation of chest burning. She states been burning since about 2 AM. She states she does have anxiety and she is concerned it may be that but she feels she is having symptoms in her left arm as well. Patient relates recent history of a chest pain work-up at [facility] where she had 2 high-sensitivity troponins that were normal. These were 9.7 and 9.4. Chest x-ray was negative for acute findings. She had an elevated D-dimer and had a CTA of the chest which was negative. This was negative. She states at that point they had told her everything was okay but wanted to transfer to [facility] and start her on a heparin drip. She states that she signed out AGAINST MEDICAL ADVICE because she did not understand why she was being admitted everything looked normal. She relates a past medical history of anxiety, hyperlipidemia, migraine. She does not have any cardiac history herself but states that her father had a cardiac bypass in his 50s. She also states that her brother has heart disease as well. She does state that both of them were heavy drinkers and smokers. She denies cough or fever. She states he does not have a history of GERD. She does not feel short of breath. [facility] Medical History (Updated 04/10/21 @ 06:[address] Rasheed Coello, ) Anxiety Chest pain Depression Hyperlipidemia Migraines Home Medications glucosamine-chondroitin 250 mg-200 mg tablet 2 tab PO DAILY 01/15/21 [History Last Taken Unknown] magnesium 200 mg tablet 400 mg PO DAILY 01/15/21 [History Last Taken Unknown] red yeast rice 600 mg capsule 1,200 mg PO DAILY 01/15/21 [History Last Taken Unknown] sumatriptan succinate 25 mg tablet 25 mg PO ONCE 01/15/21 [History Last Taken Unknown] pantoprazole [Protonix] 40 mg PO DAILY #30 tab 04/10/21 [Rx Last Taken Unknown] sucralfate [Carafate] 1 g PO BID PRN #200 ml 04/10/21 [Rx Last Taken Unknown] Allergy/AdvReac Type Severity Reaction Status Date / Time alendronate sodium AdvReac Other Verified 04/10/21 05:11 [From Fosamax] Surgical History History of History of hysterectomy Social History Smoking Status: Never smoker alcohol intake: never ROS ROS ED Constitutional Constitutional ED: Denies fever(s) or sweats Eyes Eyes: Denies blurry vision or change in vision ENT ENT ED: Denies rhinorrhea or sore throat Cardiovascular Cardiovascular: Reports as per HPI Respiratory/Chest Respiratory/Chest: Denies cough, dyspnea or sputum Gastrointestinal Gastrointestinal: Reports nausea; Denies abdominal pain, constipation, diarrhea or vomiting Genitourinary Genitourinary ED: Denies dysuria or hematuria Musculoskeletal Musculoskeletal: Denies myalgias Integumentary Denies abscess or rash Neurologic Neurologic: Denies headache(s) or weakness Psychiatric Psychiatric: Reports anxiety EXAM Physical Exam Const Vital Signs: 04/10/21 04:50 04/10/21 04:51 04/10/21 04:56 Temperature 97.8 F Temperature Source Oral Pulse Rate 74 72 Respiratory Rate 18 21 H Respiratory Pattern Blood Pressure 130/86 H 138/85 H Blood Pressure Mean 100 102 Pulse Ox 99 99 Oxygen Delivery Method Room Air Room Air Nasal Cannula 04/10/21 04:57 04/10/21 06:31 04/10/21 06:56 Temperature Temperature Source Pulse Rate 78 70 Respiratory Rate 16 16 Respiratory Pattern Normal Blood Pressure 130/89 H 118/76 Blood Pressure Mean 102 Pulse Ox 99 98 Oxygen Delivery Method Room Air Positive well nourished General Appearance ED: NAD; Negative for pallor HEENT normocephalic and atraumatic Eyes PERRL and EOMs intact bilaterally Chest Wall inspection of chest normal and palpation of chest normal Resp normal respiratory effort Effort and Inspection: respiratory distress Cardio regular rate and regular rhythm Extremity normal to inspection Neuro oriented x3 and CN's II-XII intact bilaterally Sensorium / Orientation: awake and alert Motor Exam: strength 5/5 throughout Psych mental status grossly normal Mood & Affect: anxious Skin General Skin Exam: Negative for jaundice or pallor Heart Score History: Slightly/Non-Suspicious ECG: Normal Age: >45 - <65 years Risk Factors: 1 or 2 Risk Factors Troponin: </= Normal Limit Score: 2 MDM MDM MDM Narrative Medical decision making narrative: 61-year-old female presenting with burning chest pain. She states that she had a work-up previously with negative cardiac enzymes, and a CTA of the chest which were nondiagnostic. She states that at that time the ER she was at that [facility] tried to start a heparin drip on her and she became confused because she did not know why they were starting heparin drip if her cardiac work-up was normal. She signed out AMA. She has not seen her primary since that. She has had return of the burning in her chest. Her EKG on my interpretation is a normal sinus rhythm with a ventricular rate of 68 bpm without sign of ischemic change. BNP is normal. Patient had concern that her brother has pancreatitis and that she might have it so I ordered LFTs and a lipase and these are normal with exception of an AST of 40. Initial high-sensitivity troponin is 9 in the 2-hour high-sensitivity troponin is 8. There is no significant interval change. Patient also requested that I check a urinalysis and this was also negative for UTI. I gave the patient a GI cocktail and she did report that it did improve some of her symptoms. I think with 2 - cardiac work-ups that she will need referral to GI. I did also recommend that she continue to make follow-up with Dr. Bledsoe as she is already scheduled this. I gave her a referral for Dr. [place]. She started on a PPI and given Carafate for home. Impression: 1 chest pain noncardiac Lab Data Attestation: I reviewed the patient's lab results. Labs: Laboratory Results - last 24 hr 04/10/21 04/10/21 04/10/21 05:00 05:00 05:00 WBC 9.3 RBC 4.77 Hgb 15.1 H Hct 41.1 MCV 86.2 MCH 31.7 MCHC 36.7 H RDW Std Deviation 39.1 RDW Coeff of Giselle 12.3 Plt Count 227 MPV 9.2 Immature Gran % (Auto) 0.400 Neut % (Auto) 73.1 H Lymph % (Auto) 19.2 Phelps % (Auto) 5.8 Eos % (Auto) 1.3 Baso % (Auto) 0.2 Absolute Neuts (auto) 6.8 Absolute Lymphs (auto) 1.78 Nucleated RBC % 0 Sodium 136 Potassium 4.5 Chloride 102 Carbon Dioxide 25.0 Anion Gap 9 BUN 8 Creatinine 0.81 Estim Creat Clear Calc 63.97 Est GFR (MDRD) Af Amer 92 Est GFR (MDRD) Non-Af 76 BUN/Creatinine Ratio 9.9 L Glucose 120 H Calcium 9.3 Total Bilirubin 0.80 Direct Bilirubin 0.11 AST 40 H ALT 46 Alkaline Phosphatase 71 Troponin I High Sens 9 Total Protein 7.7 Albumin 3.9 Globulin 3.8 Lipase Urine Color Urine Clarity Urine pH Ur Specific [place] Urine Protein Urine Glucose (UA) Urine Ketones Urine Occult Blood Urine Nitrite Urine Bilirubin Urine Urobilinogen Ur Leukocyte Esterase Urine RBC Urine WBC Ur Squamous Epith Cells Amorphous Sediment Urine Bacteria Urine Mucus 04/10/21 04/10/21 04/10/21 05:00 06:27 06:27 WBC RBC Hgb Hct MCV MCH MCHC RDW Std Deviation RDW Coeff of Giselle Plt Count MPV Immature Gran % (Auto) Neut % (Auto) Lymph % (Auto) [place] % (Auto) Eos % (Auto) Baso % (Auto) Absolute Neuts (auto) Absolute Lymphs (auto) Nucleated RBC % Sodium Potassium Chloride Carbon Dioxide Anion Gap BUN Creatinine Estim Creat Clear Calc Est GFR (MDRD) Af Amer Est GFR (MDRD) Non-Af BUN/Creatinine Ratio Glucose Calcium Total Bilirubin Direct Bilirubin AST ALT Alkaline Phosphatase Troponin I High Sens 8 Total Protein Albumin Globulin Lipase 173 Urine Color Yellow Urine Clarity Clear Urine pH 8.0 Ur Specific [place] 1.010 Urine Protein Negative Urine Glucose (UA) Normal Urine Ketones 50 H Urine Occult Blood Negative Urine Nitrite Negative Urine Bilirubin Negative Urine Urobilinogen Normal Ur Leukocyte Esterase Negative Urine RBC 0 SEEN Urine WBC 0 SEEN Ur Squamous Epith Cells 0-5 SEEN Amorphous Sediment 2+ Urine Bacteria 0 SEEN Urine Mucus 0 SEEN Radiography Diagnostic Testing: Clinical Impression(s) from Imaging Studies Chest X-Ray 04/10/21 04:56 IMPRESSION: No radiographic evidence of acute cardiopulmonary disease. Electronically Signed: Kimberly Barnhart MD at 5:50 EST Reading Location ID and State: [facility] / ID , Service support , Discharge Plan Triage Chief Complaint: Chest Pain ED Provider: Rasheed Coello Dx/Rx/DC Orders Instructions: ED Chest Pain, Noncardiac, ED Epigastric Pain Uncertain Cause Prescriptions: New pantoprazole [Protonix] 40 mg tablet,delayed release (DR/EC) 40 mg PO DAILY Qty: 30 RF: 0 sucralfate [Carafate] 100 mg/mL suspension 1 g PO BID PRN (Reason: acid reflux) Qty: 200 RF: 0 No Action glucosamine-chondroitin [Osteo Bi-Flex] 250-200 mg tablet 2 tab PO DAILY RF: 0 red yeast rice 600 mg capsule 1,200 mg PO DAILY RF: 0 magnesium 200 mg tablet 400 mg PO DAILY RF: 0 sumatriptan succinate 25 mg tablet 25 mg PO ONCE RF: 0 Primary Care Provider: Carl Conklin Referrals: Axel Montana DO [STAFF PHYSICIAN] - As soon as possible Carl Conklin DO [Primary Care Provider] - Disposition Disposition: Home, Self Care Discharge Date/Time: 04/10/21 07:05
[2021-04-10 05:33] LABS: Anion Gap 9 (5-15); BUN 8 mg/dL (7-18); BUN/Creat Ratio 9.9 RATIO (10-20); Calcium,Total 9.3 mg/dL (8.5-10.1); Chloride 102 mmol/L (98-107); Creatinine, Serum 0.81 mg/dL (0.55-1.02); EST Glomerular Filtration Rate 76 mL/min (>60); Est Glom Filt Rate - Afr Amer 92 mL/min (>60); Estimated Creatinine Clearance 63.97 ml/min; Glucose 120 mg/dL (74-106); Potassium 4.5 mmol/L (3.5-5.1); Sodium Level 136 mmol/L (136-145); Troponin-I HS 9 pg/mL (3.0-54.0)
[2021-04-10] MEDS: Mag Hydrox/Al Hydrox/Simeth 30 ML UDC PO (06:16)
[2021-04-10 06:31] VITALS: BP 130/89; PULSE 78; RESP 16; O2SAT 99
[2021-04-10 06:33] LABS: Bacteria 0 SEEN /hpf (None Seen); Mucous, Urine 0 SEEN /hpf (<or=2+); Red Blood Cells-Urine 0 SEEN /hpf (0-5); White Blood Cells 0 SEEN /hpf (0-5)
[2021-04-10 06:36] LABS: Color, Urine Yellow (Yellow); Glucose, Dipstick Normal (Normal); Ketone-Dipstick 50 mg/dl (Negative); Leukocyte Esterase-Dipstick Negative /ul (Negative); Nitrite-Dipstick Negative (Negative); Occult Blood-Urine Negative /ul (Negative); Protein-Dipstick Negative (Negative); Urine Bilirubin Dipstick Negative (Negative); Urine Clarity Clear (Clear); Urine Urobilinogen Normal (Normal)
[2021-04-10 06:38] LABS: Lipase 173 U/L (73-393)
[2021-04-10 06:41] LABS: Amorphous Sediment 2+; Squamous Epithelial Cells - UA 0-5 SEEN /hpf (5-10)
[2021-04-10 06:47] LABS: AST(SGOT) 40 U/L (15-37); Alanine Aminotransfer ALT/SGPT 46 U/L (13-56); Albumin, Serum 3.9 g/dL (3.2-5.0); Alkaline Phosphatase 71 U/L (45-117); Bilirubin, Direct 0.11 mg/dL (0.00-0.30); Globulin 3.8 g/dL (2.2-4.2); Protein, Total 7.7 g/dL (6.4-8.2)
[2021-04-10 06:52] LABS: Troponin-I HS 8 pg/mL (3.0-54.0)
[2021-04-10 06:56] VITALS: BP 118/76; PULSE 70; RESP 16; O2SAT 98
== END 2021-04-10 07:05 | disposition home or self-care (01) ==
PROVIDERS: Emergency Provider Student in an Organized Health Care Education/Training Program; PCP Preventive Medicine Occupational Medicine; Visit Provider Student in an Organized Health Care Education/Training Program
DX: R07.89 Other chest pain (principal); Z82.49 Family history of ischemic heart disease and other diseases of the circulatory system
CPT/HCPCS: 71045; 80048; 80076; 81001; 83690; 84484; 85025; 93005; 99285; A4216

== ENCOUNTER → 2021-10-29 | Outpatient (CLI) | payer SELFPAY ==
--- NOTE | 2021-10-29 10:56 | MRI_ITS ---
STUDY: MRI RIGHT KNEE REASON FOR EXAM: Anterior right knee pain extending down leg, no specific injury. TECHNIQUE: Standardized fat and water weighted pulse sequences were obtained in all 3 orthogonal planes. COMPARISON: Radiographs 01/15/2021. FINDINGS: Normal medial meniscus. There is mild arthrosis of the medial femorotibial compartment with mild partial-thickness chondral loss of the medial femoral condyle (T2 sagittal image 16). Normal medial femoral condyle and tibial plateau. Normal medial collateral ligamentous complex (MCL). Normal distal semimembranosus, gracilis and semitendinosus tendons. There is a horizontal/oblique tear of the inferior articular surface of the posterior horn/body of the lateral meniscus (proton-density sagittal images 9-12; proton-density coronal images 15-19). There is arthrosis of the lateral femorotibial compartment with chondral thinning at the posterior aspect of the compartment (T2 sagittal images 7) and mild subchondral cystic change of the lateral tibial plateau. There is mild subchondral bone edema of the lateral femoral condyle and tibial plateau (T2 coronal images 13-15), a stress phenomenon. Normal proximal tibiofibular articulation. Normal lateral collateral (fibular) ligament. Normal popliteus tendon. Normal biceps femoris tendon. Normal anterior cruciate ligament (ACL). Normal posterior cruciate ligament (PCL). Normal congruent patellofemoral articulation. There is low-grade chondromalacia of the medial patellar facet (T2 axial image 12). Normal medial and lateral patellar retinaculum. Normal visualized quadriceps tendon. Normal patellar tendon. Normal Hoffa''s fat pad. There is a small joint effusion. There is a very small popliteal cyst with mild extravasation of fluid (T2 coronal images 5-7). The otherwise visualized osseous structures are unremarkable. MRI/Lower Ext Joint Only (Routine) IMPRESSION: Lateral meniscal tear. 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 Mild subchondral bone edema of the lateral femoral condyle and lateral tibial plateau, a stress phenomenon. Small joint effusion. Very small popliteal cyst with mild extravasation of fluid. Electronically Signed: Benjamin Galeano MD at 12:49 EDT ,
== END | disposition home or self-care (01) ==
PROVIDERS: PCP Preventive Medicine Occupational Medicine
DX: S83.281A Other tear of lateral meniscus, current injury, right knee, initial encounter (principal); X58.XXXA Exposure to other specified factors, initial encounter; M17.11 Unilateral primary osteoarthritis, right knee; M71.21 Synovial cyst of popliteal space [Baker], right knee
CPT/HCPCS: 73721

== ENCOUNTER → 2022-03-06 | Outpatient (CLI) | payer OTHER, SELFPAY ==
--- NOTE | 2022-03-06 10:17 | BI_ITS ---
MAMMOGRAPHY - BILATERAL SCREENING REASON FOR EXAM: Female, 62 years old. Routine annual screening examination. PERTINENT HISTORY: Non-contributory. TECHNIQUE: Digital bilateral breast sam (3D mammographic acquisition) in the CC and MLO projections. 2-D mediolateral oblique (MLO) and craniocaudad (CC) views of both breasts were obtained. CAD: Full Field Digital Mammography with Computer Added Detection was performed. COMPARISON: Comparison is made with prior study dated 03/05/2021 and 03/02/2020. FINDINGS: Breast Composition: The breasts are heterogeneously dense, which may obscure small masses. There are no dominant masses or suspicious calcifications. No other significant abnormalities are identified. There has been no significant change since the prior study. BI/SCRN MAMM (CAD)W/SAM BILAT IMPRESSION: Stable bilateral screening mammogram. Yearly follow-up mammogram recommended. (A) ASSESSMENT CATEGORY: BIRADS Category 1: Negative. A letter regarding these results will be sent to the patient by the facility within 30 days. Approximately 10% of breast cancers are not detected by mammography. A normal mammogram should not delay biopsy of a clinically suspicious abnormality. [id number] Electronically Signed: Dejon Schroeder MD at 9:08 EST ,
== END | disposition home or self-care (01) ==
LOC: OPBI 10:15
PROVIDERS: PCP Preventive Medicine Occupational Medicine; Referring Provider Preventive Medicine Occupational Medicine; Visit Provider Preventive Medicine Occupational Medicine
DX: Z12.31 Encounter for screening mammogram for malignant neoplasm of breast (principal)
CPT/HCPCS: 77063; 77067

== ENCOUNTER 2022-10-09 12:57 | Emergency (ER) | payer OTHER, SELFPAY ==
[2022-10-09 12:57] VITALS: BP 127/79; PULSE 79; RESP 14; TEMP 36.3; O2SAT 100; BMI 24.6
[2022-10-09 13:10] VITALS: BP 138/78; PULSE 79; RESP 26; O2SAT 99
--- NOTE | 2022-10-09 13:10 | EKG12_ITS ---
Test Reason : CP Blood Pressure : / mmHG Vent. Rate : 080 BPM Atrial Rate : 080 BPM P-R Int : 148 ms QRS Dur : 096 ms QT Int : 402 ms P-R-T Axes : 068 011 046 degrees QTc Int : 463 ms Normal sinus rhythm Incomplete right bundle branch block Borderline ECG Confirmed by DANAE PELAEZ ([id number]), script editor ABBY SAUNDERS ([id number]) on 10/24/2022 9:50:17 AM Referred By: NHAN/JANETH Confirmed By:DANAE PELAEZ
[2022-10-09 13:14] VITALS: O2SAT 99
--- NOTE | 2022-10-09 13:20 | RAD_ITS ---
HISTORY: chest pain. TECHNIQUE: XR Chest 1 View. COMPARISON: 04/10/2021. FINDINGS: CARDIOMEDIASTINAL BORDERS: Cardiac silhouette within normal limits in size. Mediastinal contour unremarkable with calcification of the aorta. LUNGS: Radiographically clear. PLEURA: No pleural effusion or pneumothorax seen. OSSEOUS STRUCTURES: Degenerative change. RAD/Chest 1 View (Portable) IMPRESSION: No acute cardiopulmonary process identified. Electronically Signed: Tanika Oliver MD at 13:49 EDT ,
[2022-10-09 13:24] LABS: Absolute Lymphocyte Count 2.23 X10^3/uL (0.83-4.51); Absolute Neutrophil Count 4.1 X10^3/uL (2.0-7.7); Basophil# 0.02 X10^3/uL; Basophil% 0.3 % (0-1); Eosinophil# 0.03 X10^3/uL; Eosinophils% 0.4 % (0-5); Hematocrit 42.7 % (37-47); Hemoglobin 14.6 g/dL (12.0-15.0); Lymphocyte # 2.23 X10^3/ul (0.83-4.51); Lymphocyte % 32.4 % (19-41); Mean Corp Hgb Conc 34.2 g/dL (32-36); Mean Corpuscular Hgb 30.7 pg (27.0-32.0); Mean Corpuscular Volume 89.7 fL (81-99); Mean Platelet Vol. 9.7 fl (6.2-12.0); Monocyte# 0.48 X10^3/uL; NRBC Flagged by Analyzer 0 % (0-5); Neutrophil # 4.11 X10^3/uL (2.7-7.7); Neutrophil % 59.6 % (47-70); Platelet Count 202 K/mm3 (150-450); RBC Distribution Width SD 39.3 fl (35.1-43.9); Red Blood Count 4.76 M/mm3 (4.2-5.4); White Blood Count 6.9 K/mm3 (4.4-11.0)
[2022-10-09 13:40] LABS: Anion Gap 11 (5-15); BUN 7 mg/dL (7-18); BUN/Creat Ratio 7.9 RATIO (10-20); Calcium,Total 9.5 mg/dL (8.5-10.1); Chloride 106 mmol/L (98-107); Creatinine, Serum 0.88 mg/dL (0.55-1.02); EST Glomerular Filtration Rate 68 mL/min (>60); Est Glom Filt Rate - Afr Amer 83 mL/min (>60); Estimated Creatinine Clearance 58.12 ml/min; Glucose 104 mg/dL (74-106); Potassium 3.4 mmol/L (3.5-5.1); Sodium Level 138 mmol/L (136-145); Troponin-I HS 9 pg/mL (3.0-54.0)
--- NOTE | 2022-10-09 13:41 | EDS_ITS ---
HPI HPI - GI History of Present Illness Chief Complaint: Chest Pain Narrative Narrative: 62-year-old female presenting with epigastric pain, nausea. She states the pain feels like pressure and burning. Patient started any symptoms couple days ago. Patient states he had the pain most of the day yesterday and has had all day today. She states she saw her primary care physician yesterday and was started on pantoprazole which she had been on before but had stopped taking. She does have some radiation of pain into her retrosternal region and into the left arm. She denies history of cardiac disease. No fevers or chills. No diarrhea or constipation. [facility] Medical History Anxiety and depression Chest pain (04/03/21) Herpes simplex Hyperlipidemia Migraines Migraines Home Medications magnesium 200 mg tablet 400 mg PO DAILY 01/15/21 [History Last Taken Unknown] red yeast rice 600 mg capsule 1,200 mg PO DAILY 01/15/21 [History Last Taken Unknown] sumatriptan succinate 25 mg tablet 25 mg PO ONCE migrains 01/15/21 [History Last Taken Unknown] calcium carbonate 600 mg-vitamin D3 12.5 mcg (500 unit) capsule (Calcium 600 with Vitamin D3) 2 cap PO DAILY 05/04/21 [History Last Taken Unknown] cetirizine 10 mg tablet (Allergy Relief (cetirizine)) 10 mg PO DAILY PRN allergy symptoms 05/04/21 [History Last Taken Unknown] coenzyme Q10 10 mg capsule (Co Q-10) 10 mg PO DAILY 05/04/21 [History Last Taken Unknown] fluticasone prop.50 mcg spray,suspen-sod.chloride 0.9% nasal spray kit 1 ea intranasal DAILY PRN allergic symptoms 05/04/21 [History Last Taken Unknown] valacyclovir 1 gram tablet 1,000 mg PO DAILY 05/04/21 [History Last Taken Unknown] escitalopram oxalate 5 mg tablet 5 mg PO DAILY 10/09/22 [History Last Taken Unknown] ondansetron 4 mg disintegrating tablet 4 mg PO Q8H PRN PRN Nausea #20 tabs 10/09/22 [Rx Last Taken Unknown] pantoprazole 40 mg tablet,delayed release 40 mg PO Q12H 10/09/22 [History Last Taken Unknown] rimegepant 75 mg disintegrating tablet (Nurtec ODT) 75 mg PO DAILY PRN migraine headache 10/09/22 [History Last Taken Unknown] sucralfate 100 mg/mL oral suspension (Carafate) 1 g (10 mL) PO TID PRN dyspepsia #400 mL 10/09/22 [Rx Last Taken Unknown] Allergy/AdvReac Type Severity Reaction Status Date / Time celecoxib [From Celebrex] AdvReac Intermediate chest pain Verified 10/09/22 12:59 meloxicam [From Mobic] AdvReac Intermediate chest pain Verified 10/09/22 12:59 alendronate sodium AdvReac Other Verified 10/09/22 12:59 [From Fosamax] Family History Father Heart disease Hypertension Hyperlipidemia Alcoholism Tobacco use disorder S/P CABG (coronary artery bypass graft), Onset Age: 50 Brother CAD (coronary artery disease) Alcoholism Tobacco use disorder Surgical History History of History of hysterectomy Social History household members: spouse Smoking Status: Never smoker alcohol intake: never ROS ROS ED Constitutional Constitutional ED: Denies chills, fever(s) or sweats Eyes Eyes: Denies blurry vision or change in vision ENT ENT ED: Denies ear pain or sore throat Cardiovascular Cardiovascular: Reports chest pain; Denies palpitations or racing heartbeat Respiratory/Chest Respiratory/Chest: Denies cough, dyspnea or sputum Gastrointestinal Gastrointestinal: Reports abdominal pain and nausea; Denies constipation, diarrhea or vomiting Genitourinary Genitourinary ED: Denies dysuria, hematuria or urinary frequency Musculoskeletal Musculoskeletal: Denies arthralgias, myalgias or neck pain Integumentary Denies abscess, Abrasions or rash Neurologic Neurologic: Denies headache(s), paresthesias or weakness Psychiatric Psychiatric: Denies anxiety, depression, suicidal ideation or suicidal thoughts Endocrine Endocrinology: Denies polydipsia or polyuria EXAM Physical Exam Const Vital Signs: 10/09/22 12:57 10/09/22 12:57 10/09/22 13:10 Temperature 97.3 F L Temperature Source Temporal Pulse Rate 79 79 Respiratory Rate 14 26 H Respiratory Effort Blood Pressure 127/79 H 138/78 H Blood Pressure Mean 95 98 Pulse Ox 100 99 Oxygen Delivery Method Room Air Room Air 10/09/22 13:10 10/09/22 13:14 Temperature Temperature Source Pulse Rate Respiratory Rate Respiratory Effort Short of Breath Blood Pressure Blood Pressure Mean Pulse Ox 99 Oxygen Delivery Method Room Air Positive well nourished HEENT Reports moist mucous membranes normocephalic and atraumatic Eyes PERRL and EOMs intact bilaterally Resp normal respiratory effort Auscultation: Negative for rales, rhonchi or wheezes Cardio regular rate and regular rhythm GI non-tender and non-distended Palpation: soft Neuro CN's II-XII intact bilaterally, moves all extremities and no sensory deficits noted Sensorium / Orientation: alert, oriented to person, oriented to place and oriented to time Motor Exam: strength 5/5 throughout Psych mental status grossly normal Skin no wounds MDM MDM MDM Narrative Medical decision making narrative: Patient presenting with epigastric pain, nausea, chest tightness. Differential includes acute coronary syndrome, pneumonia, gastritis, GERD, peptic ulcer disease, dehydration, electrolyte abnormalities, pancreatitis, cholelithiasis, acute cholecystitis. Patient does not have any pain on examination. Heart regular rate and rhythm without murmur. Lungs clear to auscultation bilaterally. Abdomen soft nontender nondistended. Patient describing her pain as squeezing and burning. She states it does go up into her throat at times. She is treated with Zofran and tail she declines other analgesia at this time. CBC was obtained to assess white blood cell count, hemoglobin, platelets. BMP to assess renal function electrolytes. Liver function panel presents for liver abnormalities. Lipase to assess for pancreatitis. EKG and high-sensitivity troponin will be obtained to assess for ischemia. Chest x-ray to rule out pneumonia. EKG normal sinus rhythm with a ventricular rate of 80 bpm without sign of ischemic change or ectopy on my interpretation. High-sensitivity troponin is 9. Since the patient has had pain most of yesterday and today I do not believe she is a delta troponin. CBC shows no leukocytosis. Hemoglobin hematocrit are stable. Platelets are normal. Renal function electrolytes unremarkable. LFTs are normal. Lipase negative. Chest x-ray my interpretation shows no acute process. Radiologist services and agrees. Patient was initially given a GI cocktail and Zofran but did feel that she was experiencing some anxiety so she was given 0.5 mg of Ativan which did help her symptoms. Discussed with her that her work-up is ultimately negative and her symptoms are likely gastric in nature. She is already on tonics. I will give her Carafate and Zofran to take. She instructed on bland diet. She was given follow-up with Dr. [place]. Impression: 1. Epigastric pain 2. Nausea Lab Data Attestation: I reviewed the patient's lab results. Labs: Laboratory Results - last 24 hr 10/09/22 13:15 WBC 6.9 RBC 4.76 Hgb 14.6 Hct 42.7 MCV 89.7 MCH 30.7 MCHC 34.2 RDW Std Deviation 39.3 RDW Coeff of Giselle 12.0 Plt Count 202 MPV 9.7 Immature Gran % (Auto) 0.300 Neut % (Auto) 59.6 Lymph % (Auto) 32.4 [place] % (Auto) 7.0 Eos % (Auto) 0.4 Baso % (Auto) 0.3 Absolute Neuts (auto) 4.1 Absolute Lymphs (auto) 2.23 Nucleated RBC % 0 Sodium 138 Potassium 3.4 L Chloride 106 Carbon Dioxide 21.0 Anion Gap 11 BUN 7 Creatinine 0.88 Estim Creat Clear Calc 58.12 Est GFR (MDRD) Af Amer 83 Est GFR (MDRD) Non-Af 68 BUN/Creatinine Ratio 7.9 L Glucose 104 Calcium 9.5 Total Bilirubin 1.00 Direct Bilirubin 0.26 AST 16 ALT 28 Alkaline Phosphatase 73 Troponin I High Sens 9 Total Protein 7.8 Albumin 4.0 Globulin 3.8 Lipase 42 Radiography Diagnostic Testing: Clinical Impression(s) from Imaging Studies Chest X-Ray 10/09/22 13:20 IMPRESSION: No acute cardiopulmonary process identified. Electronically Signed: Tanika Oliver MD at 13:49 EDT , Discharge Plan Triage Chief Complaint: Chest Pain ED Provider: Rasheed Coello Dx/Rx/DC Orders Instructions: ED Chest Pain, Noncardiac, ED Gastritis (Adult) Prescriptions: New sucralfate [Carafate] 100 mg/mL suspension 1 g PO TID PRN (Reason: dyspepsia) Qty: 400 0RF ondansetron 4 mg tablet,disintegrating 4 mg PO Q8H PRN PRN (Reason: Nausea) Qty: 20 0RF No Action red yeast rice 600 mg capsule 1,200 mg PO DAILY Rx Instructions: give with meal/snack magnesium 200 mg tablet 400 mg PO DAILY sumatriptan succinate 25 mg tablet 25 mg PO ONCE calcium carbonate-vitamin D3 [Calcium 600 with Vitamin D3] 600 mg-12.5 mcg (500 unit) capsule 2 cap PO DAILY cetirizine [Allergy Relief (cetirizine)] 10 mg tablet 10 mg PO DAILY PRN (Reason: allergy symptoms) fluticasone prp-sod.chl,bicarb 50 mcg- 0.9 % kit,spray suspension and spray 1 ea intranasal DAILY PRN (Reason: allergic symptoms) coenzyme Q10 [Co Q-10] 10 mg capsule 10 mg PO DAILY valacyclovir 1 gram tablet 1,000 mg PO DAILY pantoprazole 40 mg tablet,delayed release (DR/EC) 40 mg PO Q12H escitalopram oxalate 5 mg tablet 5 mg PO DAILY Nurtec ODT 75 mg tablet,disintegrating 75 mg PO DAILY PRN (Reason: migraine headache) Primary Care Provider: Carl Conklin Referrals: Friend,DO Axel [Med Staff - Active Staff] - 3-5 Days Carl Conklin DO [Primary Care Provider] - Disposition Disposition: Home, Self Care
[2022-10-09] MEDS: Ondansetron 4 MG/2 ML Vial IV (13:49)
[2022-10-09] MEDS: Mag Hydrox/Al Hydrox/Simeth 30 ML UDC PO (13:49)
[2022-10-09] MEDS: LORazepam 2 MG/ML Syringe 0.5 MG IV (14:16)
[2022-10-09 14:24] LABS: AST(SGOT) 16 U/L (15-37); Alanine Aminotransfer ALT/SGPT 28 U/L (13-56); Alkaline Phosphatase 73 U/L (45-117); Bilirubin, Direct 0.26 mg/dL (0.00-0.30); Globulin 3.8 g/dL (2.2-4.2); Lipase 42 U/L (13-75); Protein, Total 7.8 g/dL (6.4-8.2)
[2022-10-09 16:14] VITALS: RESP 18
== END 2022-10-09 16:15 | disposition home or self-care (01) ==
PROVIDERS: Emergency Provider Student in an Organized Health Care Education/Training Program; PCP Preventive Medicine Occupational Medicine; Visit Provider Student in an Organized Health Care Education/Training Program
DX: R07.9 Chest pain, unspecified (principal); R10.13 Epigastric pain; R11.0 Nausea; Z79.899 Other long term (current) drug therapy
CPT/HCPCS: 71045; 80048; 80076; 83690; 84484; 85025; 93005; 96374; 96375; 99284; A4216; J2405

== ENCOUNTER → 2022-11-21 | Outpatient (CLI) | payer OTHER, SELFPAY ==
[2022-11-21 08:52] LABS: Erythrocyte Sedimentation Rate < 1 mm/hr (0-30)
[2022-11-21 09:15] LABS: Amylase 52 U/L (25-115); CRP < 2.90 mg/L (0.0-3.0); Lipase 45 U/L (13-75)
[2022-11-22 15:08] LABS: Anti-Centromere B Ab <0.2 AI (0.0-0.9); Anti-Chromatin <0.2 AI (0.0-0.9); Anti-Jo <0.2 AI (0.0-0.9); Anti-Scleroderma-70 AB <0.2 AI (0.0-0.9); Anti-dsDNA Ab <1 IU/mL (0-9); RNP Ab <0.2 AI (0.0-0.9); SJOGREN'S Anti-SS-A test < 0.2 AI (0.0-0.9); SJOGREN'S Anti-SS-B test < 0.2 AI (0.0-0.9); Smith Ab <0.2 AI (0.0-0.9)
[2022-11-25 00:06] LABS: Albumin 4.4 g/dL (2.9-4.4); Alpha-1-Globulins 0.2 g/dL (0.0-0.4); Alpha-2-Globulins 0.6 g/dL (0.4-1.0); Cytoplasmic Ab (C-ANCA) <1:20 titer (Neg:<1:20); Endomysial Antibody IgA Negative (Negative); Gamma Globulin 1.3 g/dL (0.4-1.8); Immunoglobulin A 260 mg/dL (87-352); Immunoglobulin E 238 IU/mL (6-495); Immunoglobulin G 1353 mg/dL (586-1602); Immunoglobulin M 92 mg/dL (26-217); PROEL- TOTAL PROTEIN 7.5 g/dL (6.0-8.5); Perinuclear Ab (P-ANCA) <1:20 titer (Neg:<1:20); t-Transglutaminase IgA <2 U/mL (0-3)
== END | disposition home or self-care (01) ==
LOC: LAB 08:08
PROVIDERS: PCP Preventive Medicine Occupational Medicine; Referring Provider Internal Medicine Gastroenterology; Visit Provider Internal Medicine Gastroenterology
DX: R10.9 Unspecified abdominal pain (principal)
CPT/HCPCS: 36415; 82150; 82784; 82785; 83516; 83690; 84165; 85652; 86140; 86225; 86235; 86255; 86256; 86334; 86677

== ENCOUNTER → 2022-12-25 | Outpatient (CLI) | payer OTHER, SELFPAY ==
--- NOTE | 2022-12-25 10:53 | US_ITS ---
STUDY: ABDOMINAL ULTRASOUND - RIGHT UPPER QUADRANT REASON FOR VISIT: Female, 62 years old ABDOMINAL PAIN TECHNIQUE: Ultrasound evaluation of the right upper quadrant was performed with real-time and static lópez-scale imaging. TECHNICAL QUALITY: Adequate. COMPARISON: None. FINDINGS: Liver: The liver measures 12 cm. There is increased echogenicity consistent with fatty infiltration. The bile ducts are within normal limits. There is hepatic color flow. The direction of portal flow is hepatopetal. Simple cyst left lobe measures 1.7 x 1.4 x 1.1 cm. Focal fatty sparing adjacent to the gallbladder. Gallbladder: Normal distended gallbladder. The gallbladder wall measures 1.3 mm. There is a negative sonographic Noonan''s sign. There is no pericholecystic fluid. There are no gallstones. Common Bile Duct (C.B.D.): The common bile duct measures 5 mm. Pancreas: Normal size of the head, body and tail of the pancreas. There is normal echogenicity of the pancreas. There is no demonstrated pancreatic mass or cyst. Right Kidney: Normal size of the right kidney. The right kidney measures 9.9 cm. Normal renal cortex. The right cortex measures 1.2 cm. There is no demonstrated renal mass or cyst. There is no right hydronephrosis. US/Abdomen Limited IMPRESSION: Hepatic steatosis Electronically Signed: Shan Medellin MD at 18:13 EST ,
--- NOTE | 2022-12-25 10:53 | NM_ITS ---
CLINICAL: 62-year-old female with history of abdominal pain. SEMI-SOLID PHASE 99m Tc SULFUR COLLOID GASTRIC EMPTYING STUDY COMPARISON: Abdominal ultrasound report 12/25/2022 FINDINGS: The patient was administered 1.2 mCi of 99m Tc sulfur colloid mixed with oatmeal and consumed per os. Image acquisitions in the anterior-posterior projections were obtained for 60 minutes. There is prompt visualization of the stomach. There is no gastroesophageal reflux identified. The T ? raw data emptying was calculated to be 29.38 minutes, (Normal: 12-56 minutes). NM/Gastric Emptying Study IMPRESSION: 1. NORMAL 99m Tc sulfur colloid semi-solid phase (oatmeal) gastric emptying imaging examination. A. There is normal and preserved semi-solid phase gastric emptying compared to normal controls. (Carrillo et al, J Nucl Med Tech 38: 186, 2010). Electronically Signed: Jorje Rodriguez DO at 21:53 EST ,
== END | disposition home or self-care (01) ==
LOC: NM 10:51
PROVIDERS: PCP Preventive Medicine Occupational Medicine; Referring Provider Internal Medicine Gastroenterology; Visit Provider Internal Medicine Gastroenterology
DX: R10.13 Epigastric pain (principal)
CPT/HCPCS: 76705; 78264; A9541

== ENCOUNTER → 2023-01-23 | Outpatient (CLI) | payer MEDICARE, SELFPAY ==
--- NOTE | 2023-01-23 09:35 | US_ITS ---
STUDY: ABDOMINAL ULTRASOUND - ELASTOGRAPHY REASON FOR VISIT: Female, 63 years old. Fatty infiltration of the liver. TECHNIQUE: Liver stiffness measurements were obtained on a [email or web address] RS 85 ultrasound machine using a CA 1-7 probe following the U guidelines. 3 measurements were obtained using a 2-D-SWE method. TheIQR/M was 16% suggesting a quality data set. TECHNICAL QUALITY: Adequate. COMPARISON: Comparison is made with prior study dated December 25, 2022. FINDINGS: Liver: Stable cyst in the left lobe of the liver. Median liver stiffness measured 7 kPa. Abdomen: There is no demonstrated mass lesion. US/Elastography Parenchyma/Organ IMPRESSION: Liver stiffness measures 7 kPa compatible with F2-F3 (Mild to moderate liver fibrosis) Metavir score. Electronically Signed: Dejon Schroeder MD at 14:01 EST ,
[2023-01-23 10:17] LABS: Platelet Count 193 K/mm3 (150-450)
[2023-01-23 11:09] LABS: Hemoglobin A1c 5.1 % (3.8-5.6)
[2023-01-23 11:23] LABS: HIV - WCH Non-Reactive (Nonreactive)
[2023-01-23 11:38] LABS: AST(SGOT) 18 U/L (15-37); Alanine Aminotransfer ALT/SGPT 28 U/L (13-56); Alkaline Phosphatase 71 U/L (45-117); Bilirubin, Direct 0.17 mg/dL (0.00-0.30); Cholesterol 268 mg/dL (200); Ferritin 172 ng/mL (8-252); Globulin 3.8 g/dL (2.2-4.2); High Density Lipoprotein 84 mg/dL; Protein, Total 7.8 g/dL (6.4-8.2); Triglycerides 77 mg/dL; Very Low Density Lipoprotein 15 mg/dL (5-40)
[2023-01-24 15:08] LABS: Anti-Mitochondrial AB <20.0 Units (0.0-20.0)
[2023-01-30 09:08] LABS: Anti-Smooth Muscle ABS 11 Units (0-19); Ceruloplasmin 22.5 mg/dL (19.0-39.0); Copper, Serum or Plasma 89 ug/dL (80-158); HEPATITIS B SURFACE AG Negative (Negative); Haptoglobin 78 mg/dL (37-355); Hep C Antibodies Non Reactive (Non Reactive); Hepatitis A IgM Antibody Negative (Negative); Hepatitis B Core AB IgM Negative (Negative)
== END | disposition home or self-care (01) ==
PROVIDERS: PCP Preventive Medicine Occupational Medicine; Referring Provider Internal Medicine Gastroenterology; Visit Provider Internal Medicine Gastroenterology
DX: K76.0 Fatty (change of) liver, not elsewhere classified (principal)
CPT/HCPCS: 36415; 76981; 80061; 80074; 80076; 82390; 82525; 82728; 83010; 83036; 83516; 85049; 86703

== ENCOUNTER 2023-02-27 11:00 | Outpatient (RCR) | payer MEDICARE, SELFPAY ==
--- NOTE | 2023-02-13 11:32 | HP.PTEVAL ---
Patient's Visit Information Visit Information Visit Information: XANDER PARRA is a 63 year old F referred to Physical Therapy by ABEL Moe with a diagnosis of R knee OA and derrangement. Date of Evaluation: 02/13/23 Physical Therapist: Parviz Clarke, PT, ATC Visit Plan Frequency: 2x /Week Duration: 2 Weeks Plan: Initiate a gym strengthening program for core and R knee strengthening for pt as she transitions to becoming a member here at [facility] Subjective Subjective: Pt reports she was tearing down a mobile home in February of 2020 when she awoke one morning and was not able to move her R knee. Pt reports she has been dealing with the pain ever since. Pt reports her pain has gradually worsened since that date. Pt reports she has had a cortisone injection which made no difference. Pt notes she also had the euflexa injections performed in December of 2022 which did help a little, but she still has limiting pain on the lateral aspect of her R knee that radiates to the R lateral ankle. Pt reports she had an MRI which revealed a small tear in her meniscus, and notes that her R knee is bone on bone at this time. Pt reports she has seen that the next step after PT will be a TKA, but she doesn't want that right now. Pt notes she has stairs at home that she has to negotiate one step at a time. Pt notes sleep difficulty secondary to pain. Pt reports she is not limited with ambulation at this time. Pt notes her knee hurts the most when she is inactive. R knee pain ranges from 2-7/10. R knee does not lock up on her or give out at this time. Pain R knee: Pain Intensity (Out of 10): 2 Pain Intensity Range: 7 Objective Objective: Neuro: B LE sensation is WNL to light touch. B patellar reflex 2/3 Girth at joint line: R knee 36 cm, L knee 35 cm ROM: L knee 0-140 ; R knee 0-120 degrees MMT: L knee flex= 28, ext= 51 #F; R knee flex= 28, ext= 41 #F Special tests: No pos tests this date. Balance/Special Test Scores Lower Extremity Functional Score: 56 Goals Goal 1:: I with HEP after 5 sessions Goal Time Frame: 2-4 Weeks Goal 2:: Decrease R knee pain x 1-2 points out of 10 to aid with sleep Goal Time Frame: 2-4 Weeks Rehabilitation Potential Physical Therapy Diagnosis: Pt has R knee pain, weakness, and limited ROM secondary to degenerative changes in the R knee Rehabilitation Potential: Excellent Anticipated Interventions Patient/Client Instruction: Educate patient on: Condition and Plan of Care For the Purpose of:: To improve self management Therapeutic Exercise to Include: Strength training, Endurance training, Balance training and Dynamic Lumbar Stabilization For the Purpose of:: To decrease pain, To increase ROM and To improve muscle performance and motor function Cryotherapy (ice pack, ice massage): Yes For the Purpose of:: To decrease pain Text: Thank you for the opportunity to evaluate your patient. For Medicare and Medicare HMO plans, please review the plan of care and approve it. It will need to be FAXED BACK to us at [phone] for Medicare purposes. For Medicare only, by signing this I certify the plan of care. Please let me know if there are questions or concerns regarding this plan of care. Physician Signature: Date:
--- NOTE | 2023-02-27 11:35 | HP.PTDCSUM ---
Discharge Summary D/C summary: It has been my pleasure to treat XANDER PARRA referred by ABEL Moe, with the diagnosis of R knee OA and derrangement for a total of 5 visit(s). Discharge Date: Please see the following information for a summary of their discharge status. Subjective Subjective: I am definitely getting better Pain R knee: Pain Intensity (Out of 10): 3 Overall Improvement % Improvement: 60 Objective Objective/Function: Pt is now I with HEP and gym routine Goals Goal 1:: I with HEP after 5 sessions Goal Progress: Goal Met Goal 2:: Decrease R knee pain x 1-2 points out of 10 to aid with sleep Goal Progress: Goal Met Plan Plan: Discharge to gym routine D/C Information d/c sentence: If there are questions or concerns regarding this patient's physical therapy, please feel free to call me at [phone]. Thank you for the referral of this patient. Sincerely, Parviz Clarke, PT, ATC Balance/Gait/Functional tests Balance/Special Test Scores Lower Extremity Functional Score: 55 Improvement % Improvement: 60
== END 2023-02-27 19:00 | disposition home or self-care (01) ==
LOC: PT 11:00
PROVIDERS: PCP Preventive Medicine Occupational Medicine; Referring Provider Physician Assistant; Visit Provider Physician Assistant
DX: M23.300 Other meniscus derangements, unspecified lateral meniscus, right knee (principal); M17.11 Unilateral primary osteoarthritis, right knee
CPT/HCPCS: 97110; 97161

== ENCOUNTER → 2023-03-31 | Outpatient (CLI) | payer MEDICARE, SELFPAY ==
--- NOTE | 2023-03-31 14:50 | RAD_ITS ---
STUDY: X-RAY - LUMBAR SPINE REASON FOR EXAM: Female, 63 years old. LUMBAR PAIN W RIGHT SIDED SCIATICA TECHNIQUE: 4 view(s) of the lumbar spine were obtained. COMPARISON: None FINDINGS: Normal lumbar lordosis. There is no substantial scoliosis. There is a normal alignment of the vertebrae. Normal vertebral bodies and endplates. Normal disc space heights. There is no demonstrated fracture. The soft tissue structures are unremarkable. RAD/L/S Spine Min 4 Views IMPRESSION: Normal x-ray examination of the lumbar spine. Electronically Signed: Fan Louis MD at 22:56 EST ,
--- OUTSIDE RECORDS SUMMARY | 2023-03-31 17:33 | XMS RPT_ITS | CCD ---
Author Name Unknown Address [address] [place] [address] Organization [facility] Care Team Providers Care Floor Worker [place] Name Role Phone LYNDA BYNUM DO Primary Care Physician [phone] LYNDA BYNUM DO Attending Unavailable LYNDA BYNUM DO Primary Care Unavailable Allergies Allergy Classification Reported Allergen(s) Allergy Type Date of Onset Reaction(s) Facility (4 sources) Alendronate; Translations: [alendronate] Drug Allergy Myalgia [facility] Work Phone: (4 sources) celecoxib; Translations: [celecoxib] Drug Allergy Chest pain (finding) [facility] Work Phone: (4 sources) meloxicam; Translations: [meloxicam] Drug Allergy Chest pain (finding) [facility] Work Phone: Medications Current Medications Medication Drug Class(es) Dates Sig (Normalized) Sig (Original) calcium carbonate 1500 mg / ergocalciferol 125 mg oral tablet (2 sources) Provitamin D2 Compound Start: 04-03-2021 take 1 tablet by mouth once daily calcium (as carbonate)-vitami n D 600 mg-3.125 mcg (125 intl units) oral tablet Dose = 1 tab(s), Oral, qDay, Patient is unsure of vitamin D dose in tablet, 0 Refill(s) Start Date: 04/03/21 Status: Ordered cetirizine hydrochloride 10 mg oral tablet (4 sources) Histamine-1 Receptor Antagonist Start: 11-10-2018 cetirizine 10 mg oral tablet Dose : 10 mg = 1 tab(s), Oral, Daily, PRN Allergy symptoms, 0 Refill(s) Start Date: 11/10/18 Status: Ordered Chondroitin Sulfates / Glucosamine (4 sources) Start: 03-12-2021 take 1 capsule by mouth once daily Glucosamine Chondroitin Dose = 2 cap(s), Oral, qDay, Patient unsure of dose, 0 Refill(s) Start Date: 03/12/21 Status: Ordered Completed/Discontinued Medications Medication Drug Class(es) Dates Sig (Normalized) Sig (Original) sucralfate 1000 mg oral tablet (1 source) Aluminum Complex Start: 04-11-2021 Carafate 1 g oral tablet Dose : 1 gram(s) = 1 tab(s), Oral, BID, as needed, # 60 tab(s), 0 Refill(s) Start Date: 04/11/21 Status: Ordered valACYclovir 1000 mg oral tablet (4 sources) Herpesvirus Nucleoside Analog DNA Polymerase Inhibitor, Herpes Simplex Virus Nucleoside Analog DNA Polymerase Inhibitor, Herpes Zoster Virus Nucleoside Analog DNA Polymerase Inhibitor Start: 05-26-2020 valACYclovir 1 g oral tablet Dose : 1 gram(s) = 1 tab(s), Oral, qDay, # 90 tab(s), 3 Refill(s), Pharmacy: [facility]/pharmacy #[id number], 165, cm, 12/17/19 14:36:00 EST, Height, 69.5, kg, 12/17/19 14:36:00 EST, Dosing Weight Start Date: 05/26/20 Status: Ordered Problems Problem Classification Problem Date Documented Date Episodic/Chronic Anxiety disorders (1 source) Anxiety disorder; Translations: [Other specified anxiety disorders] Onset: 04-03-2021 Chronic Disorders of lipid metabolism (1 source) Hyperlipidemia; Translations: [Hyperlipidemia, unspecified] Onset: 04-03-2021 Chronic Esophageal disorders (1 source) Gastroesophageal reflux disease 04-11-2021 Chronic Headache; including migraine (4 sources) Migraine 08-31-2018 Chronic Menopausal disorders (4 sources) Menopausal syndrome 03-12-2021 Chronic Nonspecific chest pain (2 sources) Chest pain; Translations: [Chest pain, unspecified] Onset: 04-03-2021 Episodic Other bone disease and musculoskeletal deformities (2 sources) Osteopenia 03-27-2021 Episodic Other non-traumatic joint disorders (4 sources) Hip pain 03-12-2021 Episodic Other non-traumatic joint disorders (1 source) Pain in right hip joint; Translations: [Pain in right hip] Episodic Residual codes; unclassified (4 sources) Insomnia 11-06-2020 Episodic Unclassified (4 sources) Patient encounter status 11-10-2018 Viral infection (4 sources) Herpes simplex 08-31-2018 Episodic Results Test Name Value Interpretation Reference Range Facil ity Vital Signs Date Time Vital Sign Value Performing Clinician Maritza gomez 04-03-2021 17:54-0500 Body temperature 97.52 [degF] ROHANANNMARIE ESCOBEDODAYANA F[employer] SOFTWARE DEVELOPER-MANAGER ASSET [facility] 04-03-2021 17:54-0500 Diastolic blood pressure 89 mm[Hg] ROHANANNMARIE ESCOBEDODAYANA FULL STACK SOFTWARE DEVELOPER-MANAGER ASSET [facility] 04-03-2021 17:54-0500 Heart rate 81 /min ROHANANNMARIE ESCOBEDODAYANA FULL STACK SOFTWARE DEVELOPER-MANAGER ASSET [facility] 04-03-2021 17:54-0500 Respiratory rate 18 /min ROHAN ESCOBEDODAYANA FULL STACK SOFTWARE DEVELOPER-MANAGER ASSET [facility] 04-03-2021 17:54-0500 Systolic blood pressure 150 mm[Hg] ROHANANNMARIE ESCOBEDODAYANA FULL STACK SOFTWARE DEVELOPER-MANAGER ASSET [facility] 04-03-2021 10:59-0500 Body height 165.1 cm ROHAN ESCOBEDODAYANA FULL STACK SOFTWARE DEVELOPER-MANAGER ASSET [facility] 04-03-2021 10:59-0500 Body height 165 cm ROHAN ESCOBEDODAYANA FULL STACK SOFTWARE DEVELOPER-MANAGER ASSET [facility] 04-03-2021 10:59-0500 Body weight 67 kg ROHAN HARRIS F[employer] STACK SOFTWARE DEVELOPER-MANAGER ASSET [facility] 04-03-2021 10:59-0500 Body weight 24.61 kg/m2 ROHAN HARRIS F[employer] STACK SOFTWARE DEVELOPER-MANAGER ASSET [facility] 04-03-2021 10:57-0500 Body temperature 98.24 [degF] ROHAN HARRIS FULL STACK SOFTWARE DEVELOPER-MANAGER ASSET [facility] 04-03-2021 10:57-0500 Diastolic blood pressure 91 mm[Hg] ROHAN HARRIS FULL STACK SOFTWARE DEVELOPER-MANAGER ASSET [facility] 04-03-2021 10:57-0500 Heart rate 83 /min ROHAN HARRIS F[employer] STACK SOFTWARE DEVELOPER-MANAGER ASSET [facility] 04-03-2021 10:57-0500 Reason For Taking VItal Signs ROHAN HARRIS APRN-MANAGER ASSET [facility] 04-03-2021 10:57-0500 Respiratory rate 20 /min ROHAN HARRIS APRN-MANAGER ASSET [facility] 04-03-2021 10:57-0500 Systolic blood pressure 124 mm[Hg] ROHAN BECERRAKalina FULL STACK SOFTWARE DEVELOPER-MANAGER ASSET [facility] 04-03-2021 10:01-0500 Diastolic blood pressure 84 mm[Hg] ROHAN BECERRAKalina FULL STACK SOFTWARE DEVELOPER-MANAGER ASSET [facility] 04-03-2021 10:01-0500 Heart rate 72 /min ROHAN HARRIS FULL STACK SOFTWARE DEVELOPER-MANAGER ASSET [facility] 04-03-2021 10:01-0500 Respiratory rate 16 /min ROHAN HARRIS FULL STACK SOFTWARE DEVELOPER-MANAGER ASSET [facility] 04-03-2021 10:01-0500 Systolic blood pressure 131 mm[Hg] ROHAN HARRIS FULL STACK SOFTWARE DEVELOPER-MANAGER ASSET [facility] 04-03-2021 07:37-0500 Body height 165 cm ROHAN HARRIS FULL STACK SOFTWARE DEVELOPER-MANAGER ASSET [facility] 04-03-2021 07:37-0500 Body temperature 98.42 [degF] ROHAN HARRIS FULL STACK SOFTWARE DEVELOPER-MANAGER ASSET [facility] 04-03-2021 07:37-0500 Heart rate 93 /min ROHAN HARRIS FULL STACK SOFTWARE DEVELOPER-MANAGER ASSET [facility] Encounters Encounter Date Encounter Type Care Provider Facility Start: 11-19-2022 End: 11-20-2022 ambulatory LYNDA MISA Facility:B Start: 04-03-2021 End: 04-03-2021 Observation ROHAN Sparks FANNYDAYANA F[employer] SOFTWARE DEVELOPER-MANAGER ASSET [facility] Start: 03-26-2021 End: 03-26-2021 Patient encounter procedure LYNDA MISA DO [facility] Start: 03-14-2021 End: 05-15-2021 Physical therapy management LYNDA BYNUM DO [facility] Start: 03-12-2021 End: 03-12-2021 Patient encounter procedure LYNDA BYNUM DO [facility] Procedures Date Procedure Procedure Detail Performing Clinician Start: 10-12-2011 Colonoscopy LYNDA BREWER DO Immunizations Immunization Date Immunization Notes Care Provider [facility] 01-27-2021 SARS-CoV-2 (COVID-19 ) mRNA-1273 vaccine ROHANANNMARIE ESCOBEDODAYANA MENDEZN-MANAGER ASSET [facility] 01-02-2021 influenza, injectabl e, quadrivalent, contains preservative; Translations: [Fluarix PF Quadrivalent ] LYNDA BYNUM DO [facility] 06-06-2020 SARS-CoV-2 mRNA (tozinameran) vaccine LYNDA BYNUM DO [facility] 05-06-2020 SARS-CoV-2 mRNA (tozinameran) vaccine LYNDA BYNUM DO [facility] 12-17-2019 influenza, injectabl e, quadrivalent, preservative free; Translations: [Fluarix PF Quadrivalent ] LYNDA BYNUM DO [facility] 12-06-2019 zoster vaccine recombinant LYNDA BYNUM DO [facility] Payers Date Payer Category Payer Unknown [id number] 1960 Unknown [id number] Social History Date Type Detail Facility Start: 08-31-2018 Never smoked t obacco (finding) [facility] Sex Assigned At Female [facility] Evaluation + Plan note 04-03-2021 Note Date & Type Note Facility 1. Chest pain 2. HLD (hyperlipidemia) 3. Anxiety with depression Chest pain heart score 3. Patient's symptoms are moderately suspicious. She has a strong family history, history of hyperlipidemia, age 61. Troponins are unremarkable. CTA chest done to rule out pulmonary embolism. This was negative for PE. After discussion with collaborating physician recommendation was made for patient to be transferred to [facility] for cardiology evaluation. Patient declined and has chosen to sign out AGAINST MEDICAL ADVICE. Hyperlipidemia patient is not currently prescribed a statin. She prefers to use red yeast rice. Anxiety with depression patient does not currently take any medications for anxiety or depression. Patient has multiple stressors that contribute to her anxiety. Labs, diagnostics, and progress notes reviewed as noted in HPI Code Status:Full Code Plan of care discussed with patient. All questions answered. Patient verbalizes understanding is agreeable to plan of care. Discussed with Dr. Saucedo. This dictation was performed using voice recognition software and may include grammatical and/or spelling errors. Future Appointments Appointment Date:04/06/2021 10:30:00 AM Scheduled Provider: Location:[facility] Appointment Type:PT Treatment - [place] Appointment Date:04/11/2021 10:00:00 AM Scheduled Provider:LYNDA BYNUM DO Location:[facility] Appointment Type:PC OV Follow Up Future Scheduled Tests Radiology* XR Hip Minimum 2 Views Right 03/12/21 [facility] Hospital Discharge instructions 04-03-2021 Note Date & Type Note Facility 04-03-2021 Hospital Discharg e instructions Follow Up Care 04/03/2021 07:25:41 With:LYNDA BYNUM DO Address: [address] [place] [phone] When:04/11/2021 10:00:00 Comments:Follow-up as scheduled [facility] Evaluation + Plan note Radiology Note Date & Type Note Facility Evaluation + Plan note Future Appointments Appointment Date:04/11/2021 10:00:00 AM Scheduled Provider:LYNDA BYNUM DO Location:[facility] Appointment Type:PC OV Follow Up Future Scheduled TestsBD Bone Density DEXA Axial Skeleton 03/12/21XR Hip Minimum 2 Views Right 03/12/21 [facility] Evaluation + Plan note Radiology Note Date & Type Note Facility Evaluation + Plan note Future Appointments Appointment Date:03/28/2021 10:00:00 AM Scheduled Provider: Location:[facility] Appointment Type:PT Treatment - [place] Appointment Date:04/03/2021 10:30:00 AM Scheduled Provider: Location:[facility] Appointment Type:PT Treatment - [place] Appointment Date:04/06/2021 10:30:00 AM Scheduled Provider: Location:[facility] Appointment Type:PT Treatment - [place] Appointment Date:04/11/2021 10:00:00 AM Scheduled Provider:LYNDA BYNUM DO Location:[facility] Appointment Type:PC OV Follow Up Future Scheduled TestsXR Hip Minimum 2 Views Right 03/12/21 [facility] Evaluation + Plan note Radiology Note Date & Type Note Facility Evaluation + Plan note Future Appointments Appointment Date:10/17/2021 09:00:00 AM Scheduled Provider:LYNDA BYNUM DO Location:[facility] Appointment Type:PC OV Future Scheduled TestsXR Hip Minimum 2 Views Right 03/12/21 [facility] Hospital course Narrative Note Date & Type Note Facility Hospital course Narrative No data available for this section [facility] Hospital Discharge instructions Note Date & Type Note Facility Hospital Discharge instructions No data available for this section [facility] Progress note Note Date & Type Note Facility Progress note No data available for this section [facility] Summary Purpose Family History No Family History Records Found Advance Directives No Advanced Directives Records Found Additional Source Comments Care Team (unrecognized sect ion and content) Personnel Name: LYNDA BYNUM Address: [address] [place] [address] [place] [address]- [place] INFORMATION SOURCE (unrecogn ized section and content) FOR RECORDS PERTAINING TO PATIENTS WHO ARE OR HAVE BEEN ENROLLED IN A CHEMICAL DEPENDENCY/SUBSTANCEABUSE PROGRAM, SOME INFORMATION MAY BE OMITTED. This clinical summary was aggregated from multiple sources. Caution should be exercised in using it in the provision of clinical care. This summary normalizes information from multiple sources, and as a consequence, information in this document may materially change the coding, format and clinical context of patient data. In addition, data may be omitted in some cases. CLINICAL DECISIONS SHOULD BE BASED ON THE PRIMARY CLINICAL RECORDS. [facility]. provides no warranty or guarantee of the accuracy or completeness of information in this document.
== END | disposition home or self-care (01) ==
LOC: RAD 14:44
PROVIDERS: PCP Preventive Medicine Occupational Medicine; Referring Provider Preventive Medicine Occupational Medicine; Visit Provider Preventive Medicine Occupational Medicine
DX: M54.41 Lumbago with sciatica, right side (principal)
CPT/HCPCS: 72110

== ENCOUNTER → 2023-04-15 | Outpatient (CLI) | payer MEDICARE, SELFPAY ==
--- NOTE | 2023-04-15 10:22 | BI_ITS ---
MAMMOGRAPHY - BILATERAL SCREENING 3-D TOMOSYNTHESIS REASON FOR EXAM: Female, 63 years old. SCREENING PERTINENT HISTORY: No significant family history. TECHNIQUE: 2-D mammograms and 3-D Tomosynthesis of the breast (s) were performed. CAD was performed. COMPARISON: 03/06/2022 FINDINGS: The breast composition is heterogeneously dense that can obscure small breast masses. Scattered benign calcifications are seen. No dense spiculated masses or suspicious microcalcifications are identified. No architectural distortion is identified. There is no skin thickening or retraction. There has been no significant change since the prior study. BI/SCRN MAMM (CAD)W/SAM BILAT IMPRESSION: No mammographic signs of malignancy. Routine yearly mammograms recommended. ASSESSMENT CATEGORY: BIRADS Category 1: Negative. A letter regarding these results will be sent to the patient by the facility within 30 days. FOLLOW UP RECOMMENDATION: Yearly follow up mammogram recommended. (A) Approximately 10% of breast cancers are not detected by mammography. A normal mammogram should not delay biopsy of a clinically suspicious abnormality. Electronically Signed: Jorje Biggs MD at 17:36 EST ,
--- NOTE | 2023-04-15 10:26 | BD_ITS ---
STUDY: DUAL ENERGY X-RAY ABSORPTIOMETRY / DXA REASON FOR EXAM: Female, 63 years old. M85.89 TECHNIQUE: Bone Mineral Density (BMD) measurements of lumbar spine and bilateral hips were obtained. COMPARISON: Comparison is made with prior study dated August 19, 2012. FINDINGS: Lumbar Spine (L1-L4): g/cm2 (1.057) / T-score (0.1) / Z-score (1.9) Findings are suggestive of normal bone density with a low fracture risk. Left Femur Total: g/cm2 (0.809) / T-score (-1.1) / Z-score (0.1) Left Femoral Neck: g/cm2 (0.634) / T-score (-1.9) / Z-score (-0.4) Right Femur Total: g/cm2 (0.760) / T-score (-1.5) / Z-score (-0.3) Right Femoral Neck: g/cm2 (0.611) / T-score (-2.1) / Z-score (-0.6) The T-Scores on the most recent prior examination were: Lumbar Spine (L1-L4): There has been worsening of bone density since the previous examination. Left Femur Total: which represents a worsening of 6.3%. Right Femur Total: which represents a worsening of 14.3%. BD/Dexa Bone Density Study IMPRESSION: The patient is considered osteopenic as outlined below according to World Vikas Organization (WHO) criteria with a high fracture risk. There has been worsening of bone density since the previous examination. Reference Information: The T-score is the number of standard deviations above or below the standard which is normal for young adults at their peak bone mineral density. The World Health Organization (WHO) interprets the T-scores as follows: Above -1 Normal bone density Between -1 and -2.5 Osteopenia Equal to / or below -2.5 Osteoporosis As a practical clinical guideline, osteopenia may be graded as follows: Mild -1 through -1.5 Moderate -1.6 through -2.0 Severe -2.1 through -2.4 The Z-score is the number of standard deviations above or below age-matched controls. A Z-score of less than -1.5 would be considered abnormal. References: 1. NIH Osteoporosis and Related Bone Diseases www osteo.org 2. International Society for Clinical Densitometry www iscd.org 3. National Osteoporosis Foundation www nof.org Electronically Signed: Dejon Schroeder MD at 14:05 EDT ,
--- OUTSIDE RECORDS SUMMARY | 2023-04-15 10:57 | XMS RPT_ITS | CCD ---
Author Name Unknown Address [address] [place] [address] Organization [facility] Care Team Providers Care Warp Dyeing Tender Name Role Phone LYNDA BYNUM DO Primary Care Physician [phone] LYNDA BYNUM DO Attending Unavailable LYNDA BYNUM DO Primary Care Unavailable Allergies Allergy Classification Reported Allergen(s) Allergy Type Date of Onset Reaction(s) Facility (4 sources) Alendronate; Translations: [alendronate] Drug Allergy Myalgia [facility] Work Phone: (4 sources) celecoxib; Translations: [celecoxib] Drug Allergy Chest pain (finding) [facility] Work Phone: (4 sources) meloxicam; Translations: [meloxicam] Drug Allergy Chest pain (finding) [facility] Work Phone: Medications Current Medications Medication Drug [...] qDay, # 90 tab(s), 3 Refill(s), Pharmacy: [facility]/pharmacy #[id number], 165, cm, 12/17/19 14:36:00 EST, [...] 17:54-0500 Body temperature 97.52 [degF] ROHANANNMARIE ESCOBEDODAYANA ASSISTANT STRENGTH COACH-INSPECTOR SUBASSEMBLY [facility] 04-03-2021 17:54-0500 Diastolic blood pressure 89 mm[Hg] ROHANANNMARIE ESCOBEDODAYANA ASSISTANT STRENGTH COACH-INSPECTOR SUBASSEMBLY [facility] 04-03-2021 17:54-0500 Heart rate 81 /min ROHANANNMARIE ESCOBEDODAYANA ASSISTANT STRENGTH COACH-INSPECTOR SUBASSEMBLY [facility] 04-03-2021 17:54-0500 Respiratory rate 18 /min ROHAN ESCOBEDODAYANA ASSISTANT STRENGTH COACH-INSPECTOR SUBASSEMBLY [facility] 04-03-2021 17:54-0500 Systolic blood pressure 150 mm[Hg] ROHANANNMARIE ESCOBEDODAYANA ASSISTANT STRENGTH COACH-INSPECTOR SUBASSEMBLY [facility] 04-03-2021 10:59-0500 Body height 165.1 cm ROHAN ESCOBEDODAYANA ASSISTANT STRENGTH COACH-INSPECTOR SUBASSEMBLY [facility] 04-03-2021 10:59-0500 Body height 165 cm ROHAN ESCOBEDODAYANA ASSISTANT STRENGTH COACH-INSPECTOR SUBASSEMBLY [facility] 04-03-2021 10:59-0500 Body weight 67 kg ROHAN HARRIS ASSISTANT STRENGTH COACH-INSPECTOR SUBASSEMBLY [facility] 04-03-2021 10:59-0500 Body weight 24.61 kg/m2 ROHAN HARRIS ASSISTANT STRENGTH COACH-INSPECTOR SUBASSEMBLY [facility] 04-03-2021 10:57-0500 Body temperature 98.24 [degF] ROHAN HARRIS ASSISTANT STRENGTH COACH-INSPECTOR SUBASSEMBLY [facility] 04-03-2021 10:57-0500 Diastolic blood pressure 91 mm[Hg] ROHAN HARRIS ASSISTANT STRENGTH COACH-INSPECTOR SUBASSEMBLY [facility] 04-03-2021 10:57-0500 Heart rate 83 /min ROHAN HARRIS ASSISTANT STRENGTH COACH-INSPECTOR SUBASSEMBLY [facility] 04-03-2021 10:57-0500 Reason For Taking VItal Signs ROHAN HARRIS APRN-INSPECTOR SUBASSEMBLY [facility] 04-03-2021 10:57-0500 Respiratory rate 20 /min ROHAN HARRIS APRN-INSPECTOR SUBASSEMBLY [facility] 04-03-2021 10:57-0500 Systolic blood pressure 124 mm[Hg] ROHAN BECERRAKalina ASSISTANT STRENGTH COACH-INSPECTOR SUBASSEMBLY [facility] 04-03-2021 10:01-0500 Diastolic blood pressure 84 mm[Hg] ROHAN BECERRAKalina ASSISTANT STRENGTH COACH-INSPECTOR SUBASSEMBLY [facility] 04-03-2021 10:01-0500 Heart rate 72 /min ROHAN HARRIS ASSISTANT STRENGTH COACH-INSPECTOR SUBASSEMBLY [facility] 04-03-2021 10:01-0500 Respiratory rate 16 /min ROHAN HARRIS ASSISTANT STRENGTH COACH-INSPECTOR SUBASSEMBLY [facility] 04-03-2021 10:01-0500 Systolic blood pressure 131 mm[Hg] ROHAN HARRIS ASSISTANT STRENGTH COACH-INSPECTOR SUBASSEMBLY [facility] 04-03-2021 07:37-0500 Body height 165 cm ROHAN HARRIS ASSISTANT STRENGTH COACH-INSPECTOR SUBASSEMBLY [facility] 04-03-2021 07:37-0500 Body temperature 98.42 [degF] ROHAN HARRIS ASSISTANT STRENGTH COACH-INSPECTOR SUBASSEMBLY [facility] 04-03-2021 07:37-0500 Heart rate 93 /min ROHAN HARRIS ASSISTANT STRENGTH COACH-INSPECTOR SUBASSEMBLY [facility] Encounters Encounter Date Encounter Type Care Provider Facility Start: 11-19-2022 End: 11-20-2022 ambulatory LYNDA MISA Facility:B Start: 04-03-2021 End: 04-03-2021 Observation ROHAN Sparks FANNYDAYANA ASSISTANT STRENGTH COACH-INSPECTOR SUBASSEMBLY [facility] Start: 03-26-2021 End: 03-26-2021 Patient encounter procedure LYNDA MISA DO [facility] Start: 03-14-2021 End: 05-15-2021 Physical therapy management LYNDA BYNUM DO [facility] Start: 03-12-2021 End: 03-12-2021 Patient encounter procedure LYNDA BYNUM DO [facility] Procedures Date Procedure Procedure Detail Performing Clinician Start: 10-12-2011 Colonoscopy LYNDA BREWER DO Immunizations Immunization Date Immunization Notes Care Provider [facility] 01-27-2021 SARS-CoV-2 (COVID-19 ) mRNA-1273 vaccine ROHANANNMARIE ESCOBEDODAYANA MENDEZN-INSPECTOR SUBASSEMBLY [facility] 01-02-2021 influenza, injectabl e, quadrivalent, contains preservative; Translations: [Fluarix PF Quadrivalent ] LYNDA BYNUM DO [facility] 06-06-2020 SARS-CoV-2 mRNA (tozinameran) vaccine LYNDA BYNUM DO [facility] 05-06-2020 SARS-CoV-2 mRNA (tozinameran) vaccine LYNDA BYNUM DO [facility] 12-17-2019 influenza, injectabl e, quadrivalent, preservative free; Translations: [Fluarix PF Quadrivalent ] LYNDA BYNUM DO [facility] 12-06-2019 zoster vaccine recombinant LYNDA BYNUM DO [facility] Payers Date Payer Category Payer Unknown [id number] 1960 Unknown [id number] Social History Date Type Detail Facility Start: 08-31-2018 Never smoked t obacco (finding) [facility] Sex Assigned At Female [facility] Evaluation + Plan note 04-03-2021 [...] made for patient to be transferred to [facility] for cardiology evaluation. Patient declined and [...] Appointments Appointment Date:04/06/2021 10:30:00 AM Scheduled Provider: Location:[facility] Appointment Type:PT Treatment - [place] Appointment Date:04/11/2021 10:00:00 AM Scheduled Provider:LYNDA BYNUM DO Location:[facility] Appointment Type:PC OV Follow Up Future Scheduled Tests Radiology* XR Hip Minimum 2 Views Right 03/12/21 [facility] Hospital Discharge instructions 04-03-2021 Note Date & Type Note Facility 04-03-2021 Hospital Discharg e instructions Follow Up Care 04/03/2021 07:25:41 With:LYNDA BYNUM DO Address: [address] [place] [id number] [phone] When:04/11/2021 10:00:00 Comments:Follow-up as scheduled [facility] Evaluation + Plan note Radiology Note Date & Type Note Facility Evaluation + Plan note Future Appointments Appointment Date:04/11/2021 10:00:00 AM Scheduled Provider:LYNDA BYNUM DO Location:[facility] Appointment Type:PC OV Follow Up Future Scheduled TestsBD Bone Density DEXA Axial Skeleton 03/12/21XR Hip Minimum 2 Views Right 03/12/21 [facility] Evaluation + Plan note Radiology Note Date & Type Note Facility Evaluation + Plan note Future Appointments Appointment Date:03/28/2021 10:00:00 AM Scheduled Provider: Location:[facility] Appointment Type:PT Treatment - [place] Appointment Date:04/03/2021 10:30:00 AM Scheduled Provider: Location:[facility] Appointment Type:PT Treatment - [place] Appointment Date:04/06/2021 10:30:00 AM Scheduled Provider: Location:[facility] Appointment Type:PT Treatment - [place] Appointment Date:04/11/2021 10:00:00 AM Scheduled Provider:LYNDA BYNUM DO Location:[facility] Appointment Type:PC OV Follow Up Future Scheduled TestsXR Hip Minimum 2 Views Right 03/12/21 [facility] Evaluation + Plan note Radiology Note Date & Type Note Facility Evaluation + Plan note Future Appointments Appointment Date:10/17/2021 09:00:00 AM Scheduled Provider:LYNDA BYNUM DO Location:[facility] Appointment Type:PC OV Future Scheduled TestsXR Hip Minimum 2 Views Right 03/12/21 [facility] Hospital course Narrative Note Date & Type Note Facility Hospital course Narrative No data available for this section [facility] Hospital Discharge instructions Note Date & Type Note Facility Hospital Discharge instructions No data available for this section [facility] Progress note Note Date & Type Note Facility Progress note No data available for this section [facility] Summary Purpose Family History No Family History Records Found Advance Directives No Advanced Directives Records Found Additional Source Comments Care Team (unrecognized sect ion and content) Personnel Name: LYNDA BYNUM Address: [address] [place] [address] [place] [address]- [place] INFORMATION SOURCE (unrecogn ized section and [...] BE BASED ON THE PRIMARY CLINICAL RECORDS. [facility] [employer] [facility]. provides no warranty or guarantee of the accuracy or completeness of information in this document.
== END | disposition home or self-care (01) ==
LOC: OPBD 10:20
PROVIDERS: PCP Preventive Medicine Occupational Medicine; Referring Provider Preventive Medicine Occupational Medicine; Visit Provider Preventive Medicine Occupational Medicine
DX: M85.89 Other specified disorders of bone density and structure, multiple sites (principal); Z12.31 Encounter for screening mammogram for malignant neoplasm of breast
CPT/HCPCS: 77063; 77067; 77080

== ENCOUNTER → 2023-05-07 | Outpatient (CLI) | payer MEDICARE, SELFPAY ==
--- NOTE | 2023-05-07 09:58 | NEURO ---
NCS and/or EMG Patient Report Ordering Doctor: Carl Conklin DATE OF SERVICE: 05/07/23 Clinical Summary: 63 year old female patient with symptoms of numbness in the toes of the right foot - present regardless of whether she is lying, sitting, or standing. She also has occasional pains/discomfort that radiates down the the right leg from the knee to the foot. Nerve Conduction Studies Summary: Nerve conduction studies performed in the right lower extremity were within normal ranges for the patient's stated age. Needle Examination Summary: Needle examination of select muscles of the right lower extremity was normal. Impression: There is no electrodiagnostic evidence of a right peroneal mononeuropathy or lumbosacral radiculopathy. Multi Select Codes Neurology Neurology Interp Codes: 62848-54 Musc test done w/n test comp (interp) (1) and 14481-05 Nrv cndj tst 3-4 studies (interp)
== END | disposition home or self-care (01) ==
LOC: PSN 09:02
PROVIDERS: PCP Preventive Medicine Occupational Medicine; Referring Provider Preventive Medicine Occupational Medicine; Visit Provider Preventive Medicine Occupational Medicine
DX: M54.41 Lumbago with sciatica, right side (principal)
CPT/HCPCS: 95886; 95908

== ENCOUNTER 2023-06-05 22:23 | Observation (INO) | payer MEDICARE, SELFPAY ==
[2023-06-05 22:25] VITALS: BP 145/87; PULSE 99; RESP 22; TEMP 35.9; O2SAT 100
--- NOTE | 2023-06-05 22:34 | US_ITS ---
STUDY: ABDOMINAL ULTRASOUND - RIGHT UPPER QUADRANT REASON FOR VISIT: Female, 63 years old PAIN TECHNIQUE: Ultrasound evaluation of the right upper quadrant was performed with real-time and static lópez-scale imaging. TECHNICAL QUALITY: Adequate. COMPARISON: None. FINDINGS: Liver: The liver measures 12.9 cm. There is a heterogeneous echogenicity of the liver. The bile ducts are within normal limits. There is hepatic color flow. The direction of portal flow is hepatopetal. 2.0 cm septated cyst in the left lobe of the liver. Gallbladder: Normal distended gallbladder. The gallbladder wall measures 2 mm. There is a negative sonographic Noonan''s sign. There is no pericholecystic fluid. There are no gallstones. Common Bile Duct (C.B.D.): The common bile duct measures 9 mm. Pancreas: Normal size of the head, body and tail of the pancreas. There is normal echogenicity of the pancreas. There is no demonstrated pancreatic mass or cyst. Right Kidney: Normal size of the right kidney. The right kidney measures 10.2 cm. Normal renal cortex. The right cortex measures 1.3 cm. There is no demonstrated renal mass or cyst. There is no right hydronephrosis. US/Gallbladder IMPRESSION: 1. Extrahepatic biliary ductal dilatation and correlation with MRCP or ERCP would be useful. 2. Heterogeneous hepatic echotexture possibly from fatty infiltration, hepatitis, or cirrhosis. Electronically Signed: Jorje Biggs MD at 23:55 EDT ,
--- NOTE | 2023-06-05 22:41 | EDS_ITS ---
HPI HPI - GI History of Present Illness Chief Complaint: Abd Pain Narrative Narrative: 63-year-old female who denies significant past medical history with the exception of having epigastric to right upper quadrant pain for few weeks to months that is being worked up by Dr. Montana. She states she supposed to get a HIDA scan but it has not been scheduled. She presents because she had a country fried steak at around 6 PM and she usually does not eat fried foods. Approximately 2-1/2 hours later, she began having epigastric to right upper quadrant pain. It is more of a pressure sensation. On the way to the emergency department, she was nauseated and vomited once. States that she is also having a little bit of loose stool. Her main concern is the pain in her right upper quadrant. She denies any fevers but feels chilled. She relates history that she had a workup for this a few months ago, where they thought it was cardiac, but her results were negative. That is why she is seeing gastroenterology for workup of her abdominal pain. [facility] Medical History Anxiety and depression Cataract Chest pain (04/03/21) Herpes simplex Hyperlipidemia Migraines Migraines Osteopenia Home Medications magnesium 200 mg tablet 400 mg PO DAILY 01/15/21 [History Last Taken Unknown] calcium carbonate 600 mg-vitamin D3 12.5 mcg (500 unit) capsule (Calcium 600 with Vitamin D3) 1 cap PO DAILY 05/04/21 [History Last Taken Unknown] cetirizine 10 mg tablet (Allergy Relief (cetirizine)) 10 mg PO DAILY PRN allergy symptoms 05/04/21 [History Last Taken Unknown] valacyclovir 1 gram tablet 1,000 mg PO DAILY 05/04/21 [History Last Taken Unknown] ondansetron 4 mg disintegrating tablet 4 mg PO Q8H PRN PRN Nausea #20 tabs 10/09/22 [Rx Last Taken Unknown] rimegepant 75 mg disintegrating tablet (Nurtec ODT) 75 mg PO DAILY PRN migraine headache 10/09/22 [History Last Taken Unknown] curcumin-phosphatidylcholine 500 mg capsule 500 mg PO DAILY 06/06/23 [History Last Taken Unknown] omega-3 fatty acids-fish oil 300 mg-500 mg capsule (Fish Oil) 2 cap PO DAILY 06/06/23 [History Last Taken Unknown] vitamin E mixed 400 unit tablet 800 unit PO DAILY 06/06/23 [History Last Taken Unknown] Allergy/AdvReac Type Severity Reaction Status Date / Time celecoxib [From Celebrex] AdvReac Intermediate chest pain Verified 06/05/23 22:25 meloxicam [From Mobic] AdvReac Intermediate chest pain Verified 06/05/23 22:25 alendronate sodium AdvReac Other Verified 06/05/23 22:25 [From Fosamax] Family History Father Heart disease Hypertension Hyperlipidemia Alcoholism Tobacco use disorder S/P CABG (coronary artery bypass graft), Onset Age: 50 Brother CAD (coronary artery disease) Alcoholism Tobacco use disorder Surgical History History of History of hysterectomy Social History household members: spouse housing: house Smoking Status: Never smoker alcohol intake: never ROS ROS ED ROS Narrative Constitutional: No fever, positive chills. HEENT: No sore throat. No neck pain. No loss of vision. No rhinorrhea. Cardiovascular: No chest pain. No palpitations. No pedal edema. Respiratory: No cough, no shortness of breath. Abdominal: Epigastric to right upper quadrant abdominal pain. 1 episode of nausea and vomiting. Positive loose stool. Genitourinary: No dysuria. No hematuria. Musculoskeletal: No myalgias. No arthralgias. Neurologic: No headaches. No dizziness. No lightheadedness. Skin: No rash. No change in color. Psychiatric: No depression. No anxiety. EXAM Physical Exam Narrative Exam Narrative: Afebrile. Vital signs noted. HEENT: Normocephalic. Atraumatic. PERRL, EOMI. Neck soft and supple. No point tenderness or step off. Cardiovascular: Regular rate and rhythm. No murmurs, rubs, or gallops appreciated. Respiratory: No tachypnea. Lungs clear to auscultation bilaterally. Gastrointestinal: Abdomen soft, mild tenderness to palpation in right upper quadrant to epigastrium with normoactive bowel sounds. Questionable Noonan sign. Neurological: Awake. Alert. Nonfocal, nonlateralizing. Skin: No rash. Normal color. No pallor. Musculoskeletal: No pedal edema. Full range of motion extremities. Const Vital Signs: 06/05/23 22:25 06/05/23 23:01 Temperature 96.7 F L 98.7 F Temperature Source Temporal Oral Pulse Rate 99 81 Respiratory Rate 22 H 20 H Blood Pressure 145/87 H 148/78 H Blood Pressure Mean 106 101 Pulse Ox 100 98 Oxygen Delivery Method Room Air Room Air MDM MDM MDM Narrative Medical decision making narrative: Concern is for cholecystitis versus choledocholithiasis versus pancreatitis. Comprehensive workup was pursued. She was administered morphine and ondansetron for analgesia and will be bolused normal saline 1 L intravenously. I do feel that since most of her pain is epigastric and right upper quadrant there is concern for gallbladder pathology, that utility of ultrasound outweighs CT scanning at this time. I reviewed her laboratory work and she has normal white count of 8.2, hemoglobin normal at 13.7, hematocrit 40.4, normal platelet count of 194. Her CMP shows normal sodium of 141 and potassium normal at 3.5, glucose appropriately elevated at 113 with a normal anion gap of 7. LFTs are grossly unremarkable with a normal AST of 19 and ALT of 22. Normal total bilirubin. Lipase is 71. While her urine shows 10-25 WBCs, she is not having dysuria. There is 2+ bacteria. Through shared decision making, instead of immediately starting her on antibiotics, urine culture will be sent. I reviewed the ultrasound report which shows that she has a normal distended g allbladder, there is no pericholecystic fluid. However, there is extrahepatic biliary duct dilatation, and common bile duct measures at 9 mm. No evidence of mass. Radiologist suggests ERCP for further evaluation. I discussed patient with Dr. Montana. Given the amount of pain/pressure that she was and is having, he would like me to speak to the hospitalist for at least observation so he can be consulted in the morning and possibly perform the ERCP. I discussed the patient with Dr. Velasquez. Disposition is assigned observation on the medical surgical floor. Patient is in stable condition. History & Record Review Discussion w/independent historian: Patient and Family (Spouse) Lab Data Attestation: I reviewed the patient's lab results. Labs: Laboratory Results - last 24 hr 06/05/23 06/05/23 23:00 23:35 WBC 8.2 RBC 4.51 Hgb 13.7 Hct 40.4 MCV 89.6 MCH 30.4 MCHC 33.9 RDW Std Deviation 39.2 RDW Coeff of Giselle 12.0 Plt Count 194 MPV 9.4 Immature Gran % (Auto) 0.200 Neut % (Auto) 57.5 Lymph % (Auto) 32.3 [place] % (Auto) 7.2 Eos % (Auto) 2.4 Baso % (Auto) 0.4 Absolute Neuts (auto) 4.7 Absolute Lymphs (auto) 2.66 Nucleated RBC % 0 Sodium 141 Potassium 3.5 Chloride 106 Carbon Dioxide 28.0 Anion Gap 7 BUN 13 Creatinine 0.84 Estim Creat Clear Calc 60.08 Est GFR (MDRD) Af Amer 87 Est GFR (MDRD) Non-Af 72 BUN/Creatinine Ratio 15.5 Glucose 113 H Calcium 9.0 Total Bilirubin 0.30 AST 19 ALT 22 Alkaline Phosphatase 91 Total Protein 7.3 Albumin 3.7 Globulin 3.6 Albumin/Globulin Ratio 1.0 Lipase 71 Urine Color Yellow Urine Clarity Sl. Cloudy Urine pH 9.0 Ur Specific Bro[place] 1.015 Urine Protein 15 H Urine Glucose (UA) Normal Urine Ketones Negative Urine Occult Blood Negative Urine Nitrite Negative Urine Bilirubin Negative Urine Urobilinogen Normal Ur Leukocyte Esterase 100 H Urine RBC 0-5 SEEN Urine WBC 10-25 SEEN Ur Squamous Epith Cells 0-5 SEEN Amorphous Sediment 2+ Urine Bacteria 2+ Urine Mucus 0 SEEN Radiography Diagnostic Testing: Clinical Impression(s) from Imaging Studies Gallbladder Ultrasound 06/05/23 22:34 IMPRESSION: 1. Extrahepatic biliary ductal dilatation and correlation with MRCP or ERCP would be useful. 2. Heterogeneous hepatic echotexture possibly from fatty infiltration, hepatitis, or cirrhosis. Electronically Signed: Jorje Biggs MD at 23:55 EDT , Management Discussion w/another healthcare provider: Hospitalist (Dr. Velasquez) and Collar Baster (Dr. Montana) Discharge Plan Dx/Rx/DC Orders Clinical Impression: Dilation of bile duct determined by ultrasound, Abdominal pain Disposition Disposition: Acute Care Hospital [facility]
[2023-06-05] MEDS: 0.9% Normal Saline (1000mL) 1,000 ML 1000 ML IV (22:57)
[2023-06-05] MEDS: Ondansetron 4 MG/2 ML Vial IV (22:58)
[2023-06-05] MEDS: Morphine 4 MG/ML Syringe IV (22:58)
[2023-06-05 23:01] VITALS: BP 148/78; PULSE 81; RESP 20; TEMP 37.1; O2SAT 98; BMI 23.2
[2023-06-05 23:08] LABS: Absolute Lymphocyte Count 2.66 X10^3/uL (0.83-4.51); Absolute Neutrophil Count 4.7 X10^3/uL (2.0-7.7); Basophil# 0.03 X10^3/uL; Basophil% 0.4 % (0-1); Eosinophils% 2.4 % (0-5); Hematocrit 40.4 % (37-47); Hemoglobin 13.7 g/dL (12.0-15.0); Lymphocyte # 2.66 X10^3/ul (0.83-4.51); Lymphocyte % 32.3 % (19-41); Mean Corp Hgb Conc 33.9 g/dL (32-36); Mean Corpuscular Hgb 30.4 pg (27.0-32.0); Mean Corpuscular Volume 89.6 fL (81-99); Mean Platelet Vol. 9.4 fl (6.2-12.0); Monocyte# 0.59 X10^3/uL; Monocyte% 7.2 % (0-10); NRBC Flagged by Analyzer 0 % (0-5); Neutrophil # 4.73 X10^3/uL (2.7-7.7); Neutrophil % 57.5 % (47-70); Platelet Count 194 K/mm3 (150-450); RBC Distribution Width SD 39.2 fl (35.1-43.9); Red Blood Count 4.51 M/mm3 (4.2-5.4); White Blood Count 8.2 K/mm3 (4.4-11.0)
[2023-06-05 23:25] LABS: AST(SGOT) 19 U/L (15-37); Alanine Aminotransfer ALT/SGPT 22 U/L (13-56); Albumin, Serum 3.7 g/dL (3.2-5.0); Alkaline Phosphatase 91 U/L (45-117); Anion Gap 7 (5-15); BUN 13 mg/dL (7-18); BUN/Creat Ratio 15.5 RATIO (10-20); Chloride 106 mmol/L (98-107); Creatinine, Serum 0.84 mg/dL (0.55-1.02); EST Glomerular Filtration Rate 72 mL/min (>60); Est Glom Filt Rate - Afr Amer 87 mL/min (>60); Estimated Creatinine Clearance 60.08 ml/min; Globulin 3.6 g/dL (2.2-4.2); Glucose 113 mg/dL (74-106); Lipase 71 U/L (13-75); Potassium 3.5 mmol/L (3.5-5.1); Protein, Total 7.3 g/dL (6.4-8.2); Sodium Level 141 mmol/L (136-145)
[2023-06-05 23:41] LABS: Mucous, Urine 0 SEEN /hpf (<or=2+)
[2023-06-05 23:42] LABS: Color, Urine Yellow (Yellow); Glucose, Dipstick Normal (Normal); Ketone-Dipstick Negative (Negative); Leukocyte Esterase-Dipstick 100 /ul (Negative); Nitrite-Dipstick Negative (Negative); Occult Blood-Urine Negative /ul (Negative); Protein-Dipstick 15 mg/dl (Negative); Specific Gravity, Urine 1.015 (1.002-1.030); Urine Bilirubin Dipstick Negative (Negative); Urine Clarity Sl. Cloudy (Clear); Urine Urobilinogen Normal (Normal)
[2023-06-05 23:52] LABS: Amorphous Sediment 2+; Bacteria 2+ /hpf (None Seen); Red Blood Cells-Urine 0-5 SEEN /hpf (0-5); Squamous Epithelial Cells - UA 0-5 SEEN /hpf (5-10); White Blood Cells 10-25 SEEN /hpf (0-5)
[2023-06-06] VITALS (8 sets, daily range): BP systolic 116–135; BP diastolic 72–90; PULSE 74–92; RESP 14–17; TEMP 36.4–36.9; O2SAT 96–99; BMI 23.1
--- NOTE | 2023-06-06 | GASB_PTH ---
PATIENT: XANDER PARRA LOC: MS3 U#:[id number] AGE/SX: 63/F ROOM: [facility] RE06/06/[address]: Dr. Amish Jay DO : 1960 BED: 1 DIS: 06/06/2023 SPEC #: [id number] RECD: 06/06/23 18:43 STATUS: CRUZ REChaya #: [id number] ODALYS: 06/06/23 00:[address]: Ra Nanhsaan DEPT: SURGICAL PATHOLOGY RECD BY: Kwabena Nugent ENTERED: 06/09/23 10:48 SP TYPE: Gastric Bx OTHR DR: Dr. Emiliano Velasquez, DO Dr. Amish Jay, DO Dr. Carl Conklin DO Tissues: Gastric mucous membrane Procedures: Special Stain Group II Surgery Specimen Level IV Alcian Blue/PAS (control) Comments: @ Ordering doctor for SUIV edited from to @ garry ZHONG at 06/09/23 1051 @ Submitting doctor edited from to @ garry ZHONG at 06/09/23 1058 HEADER OPERATION: EGD with biopsies PRE-OP DIAGNOSIS: Abdominal pain TISSUE SUBMITTED: Antrum biopsy MICROSCOPIC DIAGNOSIS Gastric antrum, biopsy: Chronic gastritis. Focal intestinal metaplasia. No evidence of dysplasia. See comment. AM/ 06/10/2023 COMMENT The results of immunohistochemistry for Helicobacter pylori will be reported separately ([id number]). Alcian blue/PAS stain with matched control supports the above diagnosis. MICROSCOPIC DESCRIPTION Slides are reviewed. GROSS DESCRIPTION Received in fixative is one container labeled with the patient's name and designated Antrum biopsy. The specimen consists of two irregular fragments of light swan soft tissue that in aggregate measure 0.2 x 0.7 x 0.2 cm. The specimen is totally submitted in one cassette. Mr 06/09/23 TC:3 CPT:76392,61623
--- NOTE | 2023-06-06 00:47 | HP.PCM.HOS_ITS ---
HPI - General General Date of Admission: 06/06/23 Date of Service: 06/06/23 Chief Complaint: Abdominal pain HPI Narrative XANDER PARRA, is a 63 F who presented to [facility] ED on 06/06/2023 with worsening abdominal pain. Patient seen at bedside in the ED. Patient was sitting up fairly comfortably in bed and conversing normally. She was somewhat anxious appearing. She has been following with Dr. Montana for ongoing abdominal/primarily epigastric pain with nausea, last office visit on 05/20. Noted at that visit that she was having dull epigastric pain 2-3 times per week, felt bloated during those episodes. She was on Carafate and PPI at one time but reported no acid reflux symptoms at that time and has not been taking either of these medications. Patient states that she ate a country fried steak earlier this evening and developed epigastric to right upper quadrant pain after this, so she came to the ED for further evaluation. Gallbladder ultrasound showed extrahepatic biliary ductal dilatation with recommendation for correlation with MRCP or ERCP. ED physician spoke with Dr. Montana who recommended that patient be admitted and made n.p.o. with plan for possible ERCP on 06/05. Lab workup was otherwise benign, no abnormalities with liver enzymes. Patient is hemodynamically stable and afebrile, is noninfectious appearing. [facility] Medical History Anxiety and depression Cataract Chest pain (04/03/21) Herpes simplex Hyperlipidemia Migraines Migraines Osteopenia Home Medications magnesium 200 mg tablet 400 mg PO DAILY 01/15/21 [History Last Taken Unknown] calcium carbonate 600 mg-vitamin D3 12.5 mcg (500 unit) capsule (Calcium 600 with Vitamin D3) 1 cap PO DAILY supplement 05/04/21 [History Last Taken Unknown] cetirizine 10 mg tablet (Allergy Relief (cetirizine)) 10 mg PO DAILY PRN allergy symptoms 05/04/21 [History Last Taken Unknown] valacyclovir 1 gram tablet 1,000 mg PO DAILY 05/04/21 [History Last Taken Unknown] ondansetron 4 mg disintegrating tablet 4 mg PO Q8H PRN PRN Nausea #20 tabs 10/09/22 [Rx Last Taken Unknown] rimegepant 75 mg disintegrating tablet (Nurtec ODT) 75 mg PO DAILY PRN migraine headache 10/09/22 [History Last Taken Unknown] curcumin-phosphatidylcholine 500 mg capsule 500 mg PO DAILY see 06/06/23 [History Last Taken Unknown] omega-3 fatty acids-fish oil 300 mg-500 mg capsule (Fish Oil) 2 cap PO DAILY [History Last Taken Unknown] vitamin E mixed 400 unit tablet 800 unit PO DAILY 06/06/23 [History Last Taken Unknown] Allergy/AdvReac Type Severity Reaction Status Date / Time celecoxib [From Celebrex] AdvReac Intermediate chest pain Verified 06/05/23 22:25 meloxicam [From Mobic] AdvReac Intermediate chest pain Verified 06/05/23 22:25 alendronate sodium AdvReac Other Verified 06/05/23 22:25 [From Fosamax] Family History Father Heart disease Hypertension Hyperlipidemia Alcoholism Tobacco use disorder S/P CABG (coronary artery bypass graft), Onset Age: 50 Brother CAD (coronary artery disease) Alcoholism Tobacco use disorder Surgical History History of History of hysterectomy Social History household members: spouse housing: house Smoking Status: Never smoker alcohol intake: never ROS Constitutional Constitutional: Denies chills, fatigue, fever(s) or weakness ENT HEENT: Denies dysphagia Cardiovascular Cardiovascular: Denies chest pain Respiratory/Chest Respiratory/Chest: Denies cough Gastrointestinal Gastrointestinal: Reports abdominal pain and nausea; Denies constipation, diarrhea, dyspepsia or vomiting Psychiatric Psychiatric: Reports anxiety Vital Signs Vital Signs Vital Signs: 06/05/23 22:25 06/05/23 23:01 Temperature 96.7 F L 98.7 F Temperature Source Temporal Oral Pulse Rate 99 81 Respiratory Rate 22 H 20 H Blood Pressure 145/87 H 148/78 H Blood Pressure Mean 106 101 Pulse Ox 100 98 Oxygen Delivery Method Room Air Room Air Weight Weight: 63.3 kg Body Mass Index (BMI) 23.2 Physical Exam Const alert, oriented x3 and average body habitus Constitutional Narrative: Middle-age female, mildly anxious appearing, otherwise sitting up fairly comfortably in bed, conversing normally, in no acute distress. General Appearance: cooperative and comfortable HEENT normocephalic, head/scalp atraumatic, hearing grossly normal bilaterally, nasal mucous membranes and turbinates normal and moist oral mucous membranes Eyes PERRL, EOMs intact bilaterally and conjunctivae normal Neck full ROM Chest inspection of chest normal Resp normal respiratory effort, normal air movement, no use of accessory muscles and clear to auscultation bilaterally Cardio regular rate, regular rhythm, no murmurs and peripheral pulses 2+ throughout GI GI Narrative: Abdomen soft and nondistended. Mildly tender to palpation diffusely. Back/Spine normal ROM Extremity normal to inspection, full ROM and no pedal edema Skin no rashes or lesions noted Neuro moves all extremities and no focal motor deficits Speech: speech normal Psych mental status grossly normal Results Lab / Micro Data 06/05/23 23:00 06/05/23 23:00 Labs: Laboratory Results - last 24 hr 06/05/23 23:00: WBC 8.2, RBC 4.51, Hgb 13.7, Hct 40.4, MCV 89.6, MCH 30.4, MCHC 33.9, RDW Std Deviation 39.2, RDW Coeff of Giselle 12.0, Plt Count 194, MPV 9.4, Immature Gran % (Auto) 0.200, Neut % (Auto) 57.5, Lymph % (Auto) 32.3, [place] % (Auto) 7.2, Eos % (Auto) 2.4, Baso % (Auto) 0.4, Absolute Neuts (auto) 4.7, Absolute Lymphs (auto) 2.66, Nucleated RBC % 0, Sodium 141, Potassium 3.5, Chloride 106, Carbon Dioxide 28.0, Anion Gap 7, BUN 13, Creatinine 0.84, Estim Creat Clear Calc 60.08, Est GFR (MDRD) Af Amer 87, Est GFR (MDRD) Non-Af 72, BUN/Creatinine Ratio 15.5, Glucose 113 H, Calcium 9.0, Total Bilirubin 0.30, AST 19, ALT 22, Alkaline Phosphatase 91, Total Protein 7.3, Albumin 3.7, Globulin 3.6, Albumin/Globulin Ratio 1.0, Lipase 71 06/05/23 23:35: Urine Color Yellow, Urine Clarity Sl. Cloudy, Urine pH 9.0, Ur Specific [place] 1.015, Urine Protein 15 H, Urine Glucose (UA) Normal, Urine Ketones Negative, Urine Occult Blood Negative, Urine Nitrite Negative, Urine Bilirubin Negative, Urine Urobilinogen Normal, Ur Leukocyte Esterase 100 H, Urine RBC 0-5 SEEN, Urine WBC 10-25 SEEN, Ur Squamous Epith Cells 0-5 SEEN, A morphous Sediment 2+, Urine Bacteria 2+, Urine Mucus 0 SEEN Imaging Radiology Impression Gallbladder Ultrasound 06/05/23 22:34 IMPRESSION: 1. Extrahepatic biliary ductal dilatation and correlation with MRCP or ERCP would be useful. 2. Heterogeneous hepatic echotexture possibly from fatty infiltration, hepatitis, or cirrhosis. Electronically Signed: Jorje Biggs MD at 23:55 EDT , Assessment & Plan Assessment/Plan (1) Abdominal pain: (2) Dilation of bile duct determined by ultrasound: PLAN: Plan Patient is a 63-year-old female who presented to [facility] ED on 06/06/2023 with worsening abdominal pain. 1. Epigastric/right upper quadrant pain with biliary ductal dilatation ? Admit under observation status to [facility]. GI consulted. N.p.o. for possible ERCP today. Oxycodone 5 mg every 4 hours as needed for pain. Zofran and Compazine as needed for nausea. Chronic medical conditions: ? Right knee osteoarthritis: Tylenol as needed. ? Seasonal allergies: Continue home cetirizine as needed. DVT prophylaxis: Lovenox CODE STATUS: Full code, verified Expected disposition: Home, 1 to 2 days Total clinical time spent by myself addressing the patient's medical issues, reviewing all the data, and collaborating with patient's care team: 55 minutes. Charges/Coding Visit Charges Inpatient E&M: 86164 Init Hosp L2
[2023-06-06] MEDS: LORazepam 2 MG/ML Syringe 1 MG IV (01:31)
[2023-06-06 05:20] LABS: Hemoglobin 13.3 g/dL (12.0-15.0); Mean Corp Hgb Conc 34.1 g/dL (32-36); Mean Corpuscular Hgb 31.7 pg (27.0-32.0); Mean Corpuscular Volume 93.1 fL (81-99); Mean Platelet Vol. 9.4 fl (6.2-12.0); Platelet Count 172 K/mm3 (150-450); RBC Distribution Width SD 40.8 fl (35.1-43.9); Red Blood Count 4.19 M/mm3 (4.2-5.4); White Blood Count 7.4 K/mm3 (4.4-11.0)
[2023-06-06 05:44] LABS: AST(SGOT) 17 U/L (15-37); Alanine Aminotransfer ALT/SGPT 19 U/L (13-56); Albumin, Serum 3.3 g/dL (3.2-5.0); Alkaline Phosphatase 66 U/L (45-117); Anion Gap 3 (5-15); BUN 11 mg/dL (7-18); BUN/Creat Ratio 12.8 RATIO (10-20); Calcium,Total 8.8 mg/dL (8.5-10.1); Chloride 113 mmol/L (98-107); Creatinine, Serum 0.86 mg/dL (0.55-1.02); EST Glomerular Filtration Rate 70 mL/min (>60); Est Glom Filt Rate - Afr Amer 85 mL/min (>60); Estimated Creatinine Clearance 58.68 ml/min; Globulin 3.2 g/dL (2.2-4.2); Glucose 103 mg/dL (74-106); Potassium 3.9 mmol/L (3.5-5.1); Protein, Total 6.5 g/dL (6.4-8.2); Sodium Level 145 mmol/L (136-145)
--- NOTE | 2023-06-06 07:40 | EX.PCM.CON.G ---
HPI Consult Data Date of Consult: 06/05/23 HPI Narrative Reason for Consultation: Abdominal pain HPI Narrative: XANDER PARRA, is a 63 F who presented to [facility] ED on 06/06/2023 with worsening abdominal pain. Patient seen at bedside in the ED. Patient was sitting up fairly comfortably in bed and conversing normally. She was somewhat anxious appearing. She has been following with Dr. Montana for ongoing abdominal/primarily epigastric pain with nausea, last office visit on 05/20. Noted at that visit that she was having dull epigastric pain 2-3 times per week, felt bloated during those episodes. She was on Carafate and PPI at one time but reported no acid reflux symptoms at that time and has not been taking either of these medications. Patient states that she ate a country fried steak earlier this evening and developed epigastric to right upper quadrant pain after this, so she came to the ED for further evaluation. Gallbladder ultrasound showed extrahepatic biliary ductal dilatation with recommendation for correlation with MRCP or ERCP. Lab workup was otherwise benign, no abnormalities with liver enzymes. Patient is hemodynamically stable and afebrile, is noninfectious appearing. [facility] Medical History Anxiety and depression Cataract Chest pain (04/03/21) Herpes simplex Hyperlipidemia Migraines Migraines Osteopenia Home Medications magnesium 200 mg tablet 400 mg PO DAILY 01/15/21 [History Last Taken Unknown] calcium carbonate 600 mg-vitamin D3 12.5 mcg (500 unit) capsule (Calcium 600 with Vitamin D3) 1 cap PO DAILY supplement 05/04/21 [History Last Taken Unknown] cetirizine 10 mg tablet (Allergy Relief (cetirizine)) 10 mg PO DAILY PRN allergy symptoms 05/04/21 [History Last Taken Unknown] valacyclovir 1 gram tablet 1,000 mg PO DAILY 05/04/21 [History Last Taken Unknown] ondansetron 4 mg disintegrating tablet 4 mg PO Q8H PRN PRN Nausea #20 tabs 10/09/22 [Rx Last Taken Unknown] rimegepant 75 mg disintegrating tablet (Nurtec ODT) 75 mg PO DAILY PRN migraine headache 10/09/22 [History Last Taken Unknown] curcumin-phosphatidylcholine 500 mg capsule 500 mg PO DAILY see 06/06/23 [History Last Taken Unknown] omega-3 fatty acids-fish oil 300 mg-500 mg capsule (Fish Oil) 2 cap PO DAILY 06/06/23 [History Last Taken Unknown] vitamin E mixed 400 unit tablet 800 unit PO DAILY 06/06/23 [History Last Taken Unknown] Allergy/AdvReac Type Severity Reaction Status Date / Time celecoxib [From Celebrex] AdvReac Intermediate chest pain Verified 06/05/23 22:25 meloxicam [From Mobic] AdvReac Intermediate chest pain Verified 06/05/23 22:25 alendronate sodium AdvReac Other Verified 06/05/23 22:25 [From Fosamax] Family History Father Heart disease Hypertension Hyperlipidemia Alcoholism Tobacco use disorder S/P CABG (coronary artery bypass graft), Onset Age: 50 Brother CAD (coronary artery disease) Alcoholism Tobacco use disorder Surgical History History of History of hysterectomy Social History household members: spouse housing: house Smoking Status: Never smoker alcohol intake: never ROS Constitutional Constitutional: Denies chills, fatigue, fever(s) or weakness ENT HEENT: Denies dysphagia Cardiovascular Cardiovascular: Denies chest pain Respiratory/Chest Respiratory/Chest: Denies cough Gastrointestinal Gastrointestinal: Reports abdominal pain and nausea; Denies constipation, diarrhea, dyspepsia or vomiting Psychiatric Psychiatric: Reports anxiety Physical Exam Const alert, oriented x3 and average body habitus Constitutional Narrative: Middle-age female, mildly anxious appearing, otherwise sitting up fairly comfortably in bed, conversing normally, in no acute distress. General Appearance: cooperative and comfortable HEENT normocephalic, head/scalp atraumatic, hearing grossly normal bilaterally, nasal mucous membranes and turbinates normal and moist oral mucous membranes Eyes PERRL, EOMs intact bilaterally and conjunctivae normal Neck full ROM Chest inspection of chest normal Resp normal respiratory effort, normal air movement, no use of accessory muscles and clear to auscultation bilaterally Cardio regular rate, regular rhythm, no murmurs and peripheral pulses 2+ throughout GI GI Narrative: Abdomen soft and nondistended. Mildly tender to palpation diffusely. Back/Spine normal ROM Extremity normal to inspection, full ROM and no pedal edema Skin no rashes or lesions noted Neuro moves all extremities and no focal motor deficits Speech: speech normal Psych mental status grossly normal Lab / Micro Data 06/06/23 05:05 06/06/23 05:05 Labs: Laboratory Results - last 24 hr 06/05/23 23:00: WBC 8.2, RBC 4.51, Hgb 13.7, Hct 40.4, MCV 89.6, MCH 30.4, MCHC 33.9, RDW Std Deviation 39.2, RDW Coeff of Giselle 12.0, Plt Count 194, MPV 9.4, Immature Gran % (Auto) 0.200, Neut % (Auto) 57.5, Lymph % (Auto) 32.3, [place] % (Auto) 7.2, Eos % (Auto) 2.4, Baso % (Auto) 0.4, Absolute Neuts (auto) 4.7, Absolute Lymphs (auto) 2.66, Nucleated RBC % 0, Sodium 141, Potassium 3.5, Chloride 106, Carbon Dioxide 28.0, Anion Gap 7, BUN 13, Creatinine 0.84, Estim Creat Clear Calc 60.08, Est GFR (MDRD) Af Amer 87, Est GFR (MDRD) Non-Af 72, BUN/Creatinine Ratio 15.5, Glucose 113 H, Calcium 9.0, Total Bilirubin 0.30, AST 19, ALT 22, Alkaline Phosphatase 91, Total Protein 7.3, Albumin 3.7, Globulin 3.6, Albumin/Globulin Ratio 1.0, Lipase 71 06/05/23 23:35: Urine Color Yellow, Urine Clarity Sl. Cloudy, Urine pH 9.0, Ur Specific [place] 1.015, Urine Protein 15 H, Urine Glucose (UA) Normal, Urine Ketones Negative, Urine Occult Blood Negative, Urine Nitrite Negative, Urine Bilirubin Negative, Urine Urobilinogen Normal, Ur Leukocyte Esterase 100 H, Urine RBC 0-5 SEEN, Urine WBC 10-25 SEEN, Ur Squamous Epith Cells 0-5 SEEN, Amorphous Sediment 2+, Urine Bacteria 2+, Urine Mucus 0 SEEN 06/06/23 05:05: WBC 7.4, RBC 4.19 L, Hgb 13.3, Hct 39.0, MCV 93.1, MCH 31.7, MCHC 34.1, RDW Std Deviation 40.8, RDW Coeff of Giselle 12.0, Plt Count 172, MPV 9.4, Sodium 145, Potassium 3.9, Chloride 113 H, Carbon Dioxide 29.0, Anion Gap 3 L, BUN 11, Creatinine 0.86, Estim Creat Clear Calc 58.68, Est GFR (MDRD) Af Amer 85, Est GFR (MDRD) Non-Af 70, BUN/Creatinine Ratio 12.8, Glucose 103, Calcium 8.8, Total Bilirubin 0.50, AST 17, ALT 19, Alkaline Phosphatase 66, Total Protein 6.5, Albumin 3.3, Globulin 3.2, Albumin/Globulin Ratio 1.0 Imaging Radiology Impression Gallbladder Ultrasound 06/05/23 22:34 IMPRESSION: 1. Extrahepatic biliary ductal dilatation and correlation with MRCP or ERCP would be useful. 2. Heterogeneous hepatic echotexture possibly from fatty infiltration, hepatitis, or cirrhosis. Electronically Signed: Jorje Biggs MD at 23:55 EDT , MRCP 06/06/23 10:11 IMPRESSION: Mild prominence of the common bile duct without evidence of an obstructing stone or mass. Electronically Signed: Mohan Trinidad MD at 16:22 EDT , Assessment & Plan Assessment/Plan (1) Abdominal pain: (2) Dilation of bile duct determined by ultrasound: PLAN: Plan Patient is a 63-year-old female who presented to [facility] ED on 06/06/2023 with worsening abdominal pain. Epigastric/right upper quadrant pain with biliary ductal dilatation ? N.p.o. for possible MRCP today. Oxycodone 5 mg every 4 hours as needed for pain. Zofran and Compazine as needed for nausea. -If MRCP is negative then we will perform an upper endoscopy to look for signs or symptoms of peptic ulcer disease or other etiology of her abdominal pain. Charges/Coding Visit Charges Inpatient E&M: 44577 Init Hosp L3
--- NOTE | 2023-06-06 10:11 | MRI_ITS ---
EXAM: MR ABDOMEN WITHOUT INTRAVENOUS CONTRAST, MRCP PROTOCOL CLINICAL INDICATION: dilated biliary duct TECHNIQUE: Multiplanar and multisequence MR images of the abdomen without intravenous contrast obtained with MRCP sequence. Three-dimensional post-processing reconstructions were performed. COMPARISON: No relevant prior studies available. FINDINGS: LOWER THORAX: Normal. No pleural effusion. LIVER: Simple cyst noted within hepatic segment 3 measuring 12 mm. No follow-up indicated. GALLBLADDER AND BILE DUCTS: Mild prominence of the proximal portion of the common bile duct which measures approximate 6 mm in maximum diameter. No evidence of an obstructing stone or mass. Gallbladder has normal appearance. No gallbladder distention or wall edema. PANCREAS: Normal. No focal cystic mass. No pancreatic duct dilation. SPLEEN: Normal. Non-enlarged. ADRENALS: Normal. No nodules. KIDNEYS AND URETERS: Normal. Normal renal size and position. No hydronephrosis. INTRAPERITONEAL SPACE: Normal. No ascites or other fluid collection. VASCULATURE: Normal. Abdominal aorta is non-dilated. LYMPH NODES: No enlarged lymph nodes. MRI/MRCP Abdomen without Contrast IMPRESSION: Mild prominence of the common bile duct without evidence of an obstructing stone or mass. Electronically Signed: Mohan Trinidad MD at 16:22 EDT ,
[2023-06-06] MEDS: LORazepam 0.5 MG Tablet PO (13:33)
[2023-06-06] MEDS: 0.9% Saline Lock 10 ML Syringe IV (13:33)
--- NOTE | 2023-06-06 15:10 | NURSING ---
I Jammie Dorman MSN, RN practical nursing instructor agree with NBA Causey clinical documentation.
--- NOTE | 2023-06-06 15:14 | NURSING ---
1430-[facility]
--- NOTE | 2023-06-06 15:36 | CHAPLAIN ---
Type of Pastoral Visit _x__ Initial Visit ___ Follow-up Visit ___ On-call Visit ___ General Patient Visit ___ Spiritual Assessment ___ Family Conference ___ Bereavement ___ Rapid Response ___ Code Blue ___ Other (describe below) Pastoral Care Referral From _x__ Patient ___ Family ___ Nurse ___ Physician ___ Bosom Presser ___ Internal Control Manager ___ Other (describe below) Sacrament/Intervention ___ Active listening ___ Anointing ___ Rastafari ___ Bereavement ___ Communion ___ [place] exploration ___ ___ Life review ___ Prayer ___ Reconciliation ___ Sacrament of Sick _x__ Supportive presence ___ Wedding ___ Other (describe below) Pastoral Comments family members are in the room; pt is waiting for a test and states that she is fine; acknowledgement that this condition has occurred before but maybe hope for a resolution this time; otherwise pt just wants to be outside in the beautiful weather and has no concerns; pt and family express gratitude for the offer
--- NOTE | 2023-06-06 16:52 | NURSING ---
PT LEAVING UNIT VIA BED FOR EGD W/DR ROUSE
[2023-06-06] MEDS: Lactated Ringers 1,000 ML 15 ML IV (17:17)
--- NOTE | 2023-06-06 17:35 | IMM_PTH ---
PATIENT: XANDER PARRA LOC: MS3 U#:[id number] AGE/SX: 63/F ROOM: [facility] RE06/06/[address]: Dr. Amish Jay DO : 1960 BED: 1 DIS: 06/06/2023 SPEC #: [id number] RECD: 06/09/23 10:58 STATUS: CRUZ REQ #: [id number] ODALYS: 06/06/23 17:[address]: Axel Montana DEPT: IMMUNOHISTOCHEMISTRY RECD BY: Stiven Balderas ENTERED: 06/09/23 10:58 SP TYPE: IMMUNO OTHR DR: Dr. Emiliano Velasquez, DO Dr. Amish Jay, DO Dr. Carl Conklin DO Tissues: Stomach, NOS Procedures: H Pylori (initial) P53 (initial) KI-67 (initial) PHYSICIAN & INSTITUTION [address] [address] SPECIMEN INFORMATION: Tissue Source: Antrum biopsy Clinical Info: Abdominal pain Specimen Number: [id number] CPT code: 71330,67095f4 METHODOLOGY: Deparaffinized sections of prefer/formalin-fixed tissue or PAP/DQ stained slides are incubated with monoclonal/polyclonal antibodies/oligonucleotide probes. Localization is made via biotin free immunoperoxidase method. Appropriate controls are performed and reacted as expected. Results on target cell population are indicated in the following table: RESULTS: ANTIBODY / CLONE RESULT H Pylori (polyclonal) negative Ki-67 (30-9) positive P53 (DO-7) negative These tests were developed and their performance characteristics determined by [facility]. They may not have been cleared or approved by the U.S. Food and Drug Administration. The FDA has determined that such clearance or approval is not necessary. The above immunohistochemical/dualISH markers are ordered and reviewed by the Pathologist. INTERPRETATION: Antrum, biopsy: Negative for Helicobacter pylori organisms. No evidence of dysplasia. BONITA/ 06/11/23
--- NOTE | 2023-06-06 17:59 | OP.CCLET_ITS ---
06/06/2023 Carl Conklin [address] [place] [address] Re : Upper GI endoscopy procedure for Naida Sb Dear Dr. Conklin This procedure was performed on Tuesday, June 06, 2023. My impressions and recommendations are as follows: Impressions : - Normal esophagus. - Acute gastritis. Biopsied. - Normal second portion of the duodenum. Recommendations : - Return patient to [facility] for ongoing care. - Resume regular diet. - Continue present medications. - Await pathology results. My findings are described in the full procedure note, which is enclosed. If I can be of further assistance, please feel free to contact me at . Sincerely, Axel Montana, 06/06/2023 5:59:05 PM This report has been signed electronically.
--- NOTE | 2023-06-06 17:59 | OP.EGD_ITS ---
Patient Name: Naida Basurto Procedure Date: 06/06/2023 5:45 PM Date of : 1960 Age: 63 Procedure: Upper GI endoscopy Indications: Epigastric abdominal pain Providers: Axel Montana DO Medicines: Monitored Anesthesia Care Patient Profile: This is a 63 year old female. Refer to note in patient chart for documentation of history and physical. Patient has symptoms of acute right upper quadrant abdominal pain. Complications: No immediate complications. Procedure: Pre-Anesthesia Assessment: - Prior to the procedure, a History and Physical was performed, and patient medications and allergies were reviewed. The patient is competent. The risks and benefits of the procedure and the sedation options and risks were discussed with the patient. All questions were answered and informed consent was obtained. Patient identification and proposed procedure were verified by the physician in the pre-procedure area. Mental Status Examination: alert and oriented. Airway Examination: normal oropharyngeal airway and neck mobility. Respiratory Examination: clear to auscultation. CV Examination: normal. Prophylactic Antibiotics: The patient does not require prophylactic antibiotics. Prior Anticoagulants: The patient has taken no anticoagulant or antiplatelet agents. ASA Grade Assessment: II - A patient with mild systemic disease. After reviewing the risks and benefits, the patient was deemed in satisfactory condition to undergo the procedure. The anesthesia plan was to use monitored anesthesia care (MAC). Immediately prior to administration of medications, the patient was re-assessed for adequacy to receive sedatives. The heart rate, respiratory rate, oxygen saturations, blood pressure, adequacy of pulmonary ventilation, and response to care were monitored throughout the procedure. The physical status of the patient was re-assessed after the procedure. After obtaining informed consent, the endoscope was passed under direct vision. Throughout the procedure, the patient's blood pressure, pulse, and oxygen saturations were monitored continuously. The Endoscope was introduced through the mouth, and advanced to the second part of duodenum. The upper GI endoscopy was accomplished without difficulty. The patient tolerated the procedure well. Scope In: 5:52:10 PM Scope Out: 5:55:29 PM Total Procedure Duration Time 0 hours 3 minutes 19 seconds Findings: The examined esophagus was normal. Localized mild inflammation characterized by congestion (edema) and erosions was found in the gastric antrum and at the pylorus. Biopsies were taken with a cold forceps for histology. Verification of patient identification for the specimen was done. Estimated blood loss was minimal. Biopsies were taken with a cold forceps for Helicobacter pylori testing. Verification of patient identification for the specimen was done. Estimated blood loss was minimal. The second portion of the duodenum was normal. Impression: - Normal esophagus. - Acute gastritis. Biopsied. - Normal second portion of the duodenum. Recommendation: - Return patient to [facility] for ongoing care. - Resume regular diet. - Continue present medications. - Await pathology results. Procedure Code(s): --- Professional --- 31295, Esophagogastroduodenoscopy, flexible, transoral; with biopsy, single or multiple CPT copyright 2021 [employer]. All rights reserved. The codes documented in this report are preliminary and upon remote inpatient coder review may be revised to meet current compliance requirements. Axel Montana DO 06/06/2023 5:59:05 PM This report has been signed electronically. Number of Addenda: 0 Note Initiated On: 06/06/2023 5:45 PM
--- NOTE | 2023-06-06 18:33 | PCM.DC ---
Discharge Instructions Diet Discharge Diet: No restrictions (Avoid fried foods) Activity Discharge Activity: Return to Normal Activity Weight Bearing Status: Full weight bearing Follow Up Care Test Results: Test results from this visit will be discussed in further detail at your follow-up appointment, if applicable. Discharge Plan Admission Admit Date/Time: 06/06/23 00:50 Primary Reason for Your Visit: Gallbladder colic, gastritis Attending Provider: Amish Jay Primary Care Provider: Carl Conklin Consulting Providers: Emiliano Velasquez Discharge Orders/Prescriptions Prescriptions: New pantoprazole [Protonix] 40 mg tablet,delayed release (DR/EC) 40 mg PO DAILY Qty: 30 0RF ursodiol 250 mg tablet 250 mg PO QHS Qty: 30 0RF Continued magnesium 200 mg tablet 400 mg PO DAILY calcium carbonate-vitamin D3 [Calcium 600 with Vitamin D3] 600 mg-12.5 mcg (500 unit) capsule 1 cap PO DAILY cetirizine [Allergy Relief (cetirizine)] 10 mg tablet 10 mg PO DAILY PRN (Reason: allergy symptoms) valacyclovir 1 gram tablet 1,000 mg PO DAILY Nurtec ODT 75 mg tablet,disintegrating 75 mg PO DAILY PRN (Reason: migraine headache) ondansetron 4 mg tablet,disintegrating 4 mg PO Q8H PRN PRN (Reason: Nausea) Qty: 20 0RF vitamin E mixed 400 unit tablet 800 unit PO DAILY curcumin-phosphatidylcholine 500 mg capsule 500 mg PO DAILY Discontinued Fish Oil 300-500 mg capsule 2 cap PO DAILY Referrals / Follow Up: Carl Conklin DO [Primary Care Provider] - FriendAxel DO [Med Staff - Active Staff] - See Referral Note (As directed) Disposition Disposition (needs filled in before D/C Order can be placed): Home, Self Care
--- NOTE | 2023-06-06 18:43 | PCM.DC.SUM ---
Providers Date of Admission: 06/06/23 Date of Discharge: 06/06/23 Primary Care Physician: Dr. Carl Cnoklin, Consultations 06/06/23 01:56 Consult: Gastroenterology Routine Consulting Provider: [facility] Reason for Consult: extrahepat duct dilation, eval for ERCP EMERGENT Consult: No MD Notified: Yes Date Notified: 06/06/23 Time Notified: 00:53 Method of Notification: ED Physician Initiated Reason For Visit: RUQ PAIN WITH N/V Diagnosis Discharge Diagnosis (1) Abdominal pain: Status: Acute Code(s): R10.9 - Unspecified abdominal pain (2) Dilation of bile duct determined by ultrasound: Status: Acute Code(s): R93.2 - Abnormal findings on diagnostic imaging of liver and biliary tract Plan 1. Gallbladder colic #2 gastritis Medications at Discharge Home Medications magnesium 200 mg tablet 400 mg PO DAILY 01/15/21 calcium carbonate 600 mg-vitamin D3 12.5 mcg (500 unit) capsule (Calcium 600 with Vitamin D3) 1 cap PO DAILY supplement 05/04/21 cetirizine 10 mg tablet (Allergy Relief (cetirizine)) 10 mg PO DAILY PRN allergy symptoms 05/04/21 valacyclovir 1 gram tablet 1,000 mg PO DAILY 05/04/21 ondansetron 4 mg disintegrating tablet 4 mg PO Q8H PRN PRN Nausea #20 tabs 10/09/22 rimegepant 75 mg disintegrating tablet (Nurtec ODT) 75 mg PO DAILY PRN migraine headache 10/09/22 curcumin-phosphatidylcholine 500 mg capsule 500 mg PO DAILY see md 06/06/23 pantoprazole 40 mg tablet,delayed release (Protonix) 40 mg PO DAILY #30 tabs 06/06/23 ursodiol 250 mg tablet 250 mg PO QHS #30 tabs 06/06/23 vitamin E mixed 400 unit tablet 800 unit PO DAILY 06/06/23 Hospital Course Operations None Procedures EGD Summary of Care Provided Minutes Spent on Discharge: 30 Hospital Course: This 63-year-old white male was seen in the emergency room at [facility] with complaints of abdominal pain which occurred approximately 2 hours after eating a fatty dinner. Lab work done in the emergency room showed a normal white blood cell count, chemistry profile was unremarkable, gallbladder ultrasound was performed which showed extrahepatic biliary ductal dilatation and heterogeneous hepatic echotexture possibly from fatty liver infiltration hepatitis or cirrhosis. Patient was placed in observation status on the medical floor, she underwent an MRCP which showed mild ductal dilatation but no evidence of stones, she then underwent an EGD which showed only some mild gastritis. Patient was due as an outpatient to have a HIDA scan performed and she was instructed to follow-up with this. On 06/06/2023, patient was seen and examined: On examination she appeared in good health and spirits, she does not appear to be in any distress. Vital signs as documented. Skin warm and dry and without overt rashes. Neck without JVD, thyroid appears normal, trachea is midline, neck is supple. Lungs clear, normal air movement was noted. Heart exam notable for regular rhythm, normal sounds and absence of murmurs, rubs or gallops. Abdomen unremarkable and without evidence of organomegaly, masses, or abdominal aortic enlargement, bowel sounds are present in all 4 quadrants, no abdominal tenderness was noted. Extremities nonedematous, no cyanosis was noted, no clubbing was noted. Neuro: Cranial nerves II through XII are grossly intact, no focal motor deficits were noted, sensation to light touch and pinprick is intact, motor exam 5/5 throughout. Psych: Patient is alert and oriented x3, she does not appear anxious or depressed, she does not appear agitated. Patient was discharged home in stable condition on 06/06/2023. Weight / BMI Weight Weight: 63.2 kg Body Mass Index (BMI) 23.1 ABG / Lab / Microbiology Data 06/06/23 05:05 06/06/23 05:05 Laboratory: Laboratory Results - last 24 hr 06/05/23 23:00: WBC 8.2, RBC 4.51, Hgb 13.7, Hct 40.4, MCV 89.6, MCH 30.4, MCHC 33.9, RDW Std Deviation 39.2, RDW Coeff of Giselle 12.0, Plt Count 194, MPV 9.4, Immature Gran % (Auto) 0.200, Neut % (Auto) 57.5, Lymph % (Auto) 32.3, [place] % (Auto) 7.2, Eos % (Auto) 2.4, Baso % (Auto) 0.4, Absolute Neuts (auto) 4.7, Absolute Lymphs (auto) 2.66, Nucleated RBC % 0, Sodium 141, Potassium 3.5, Chloride 106, Carbon Dioxide 28.0, Anion Gap 7, BUN 13, Creatinine 0.84, Estim Creat Clear Calc 60.08, Est GFR (MDRD) Af Amer 87, Est GFR (MDRD) Non-Af 72, BUN/Creatinine Ratio 15.5, Glucose 113 H, Calcium 9.0, Total Bilirubin 0.30, AST 19, ALT 22, Alkaline Phosphatase 91, Total Protein 7.3, Albumin 3.7, Globulin 3.6, Albumin/Globulin Ratio 1.0, Lipase 71 06/05/23 23:35: Urine Color Yellow, Urine Clarity Sl. Cloudy, Urine pH 9.0, Ur Specific [place] 1.015, Urine Protein 15 H, Urine Glucose (UA) Normal, Urine Ketones Negative, Urine Occult Blood Negative, Urine Nitrite Negative, Urine Bilirubin Negative, Urine Urobilinogen Normal, Ur Leukocyte Esterase 100 H, Urine RBC 0-5 SEEN, Urine WBC 10-25 SEEN, Ur Squamous Epith Cells 0-5 SEEN, Amorphous Sediment 2+, Urine Bacteria 2+, Urine Mucus 0 SEEN 06/06/23 05:05: WBC 7.4, RBC 4.19 L, Hgb 13.3, Hct 39.0, MCV 93.1, MCH 31.7, MCHC 34.1, RDW Std Deviation 40.8, RDW Coeff of Giselle 12.0, Plt Count 172, MPV 9.4, Sodium 145, Potassium 3.9, Chloride 113 H, Carbon Dioxide 29.0, Anion Gap 3 L, BUN 11, Creatinine 0.86, Estim Creat Clear Calc 58.68, Est GFR (MDRD) Af Amer 85, Est GFR (MDRD) Non-Af 70, BUN/Creatinine Ratio 12.8, Glucose 103, Calcium 8.8, Total Bilirubin 0.50, AST 17, ALT 19, Alkaline Phosphatase 66, Total Protein 6.5, Albumin 3.3, Globulin 3.2, Albumin/Globulin Ratio 1.0 Radiography Diagnostic Testing: Radiology Impression Gallbladder Ultrasound 06/05/23 22:34 IMPRESSION: 1. Extrahepatic biliary ductal dilatation and correlation with MRCP or ERCP would be useful. 2. Heterogeneous hepatic echotexture possibly from fatty infiltration, hepatitis, or cirrhosis. Electronically Signed: Jorje Biggs MD at 23:55 EDT , MRCP 06/06/23 10:11 IMPRESSION: Mild prominence of the common bile duct without evidence of an obstructing stone or mass. Electronically Signed: Mohan Trinidad MD at 16:22 EDT , D/C Instructions Discharge Diet: No restrictions (Avoid fried foods) Weight Bearing Status: Full weight bearing Meaningful Use Info Meaningful Use Meaningful Use Diagnoses (Choose all that apply): None applicable Ischemic Stroke Statin Dosing Therapy Reference: STATIN DOSE THERAPY REFERENCE: * Patients > 75 years receive moderate or high dose statin therapy. * Patients 75 years or YOUNGER should receive HIGH intensity statin dose unless contraindicated. You will be required to document reason for non-treatment if statin daily dose does not meet guidelines. HIGH DOSE STATIN THERAPY DAILY Atorvastatin > than or = to 40 mg Rosuvastatin > than or = to 20 mg Amlodipine + Atorvastatin > than or = to 2.5/40 mg Ezetimibe + Simvastatin 10/80 mg Simvastatin 80mg Discharge Plan Admission Admit Date/Time: 06/06/23 00:50 Primary Reason for Your Visit: Gallbladder colic, gastritis Attending Provider: Amish Jay Primary Care Provider: Carl Conklin Consulting Providers: Emiilano Velasquez Discharge Orders/Prescriptions Prescriptions: New pantoprazole [Protonix] 40 mg tablet,delayed release (DR/EC) 40 mg PO DAILY Qty: 30 0RF ursodiol 250 mg tablet 250 mg PO QHS Qty: 30 0RF Continued magnesium 200 mg tablet 400 mg PO DAILY calcium carbonate-vitamin D3 [Calcium 600 with Vitamin D3] 600 mg-12.5 mcg (500 unit) capsule 1 cap PO DAILY cetirizine [Allergy Relief (cetirizine)] 10 mg tablet 10 mg PO DAILY PRN (Reason: allergy symptoms) valacyclovir 1 gram tablet 1,000 mg PO DAILY Nurtec ODT 75 mg tablet,disintegrating 75 mg PO DAILY PRN (Reason: migraine headache) ondansetron 4 mg tablet,disintegrating 4 mg PO Q8H PRN PRN (Reason: Nausea) Qty: 20 0RF vitamin E mixed 400 unit tablet 800 unit PO DAILY curcumin-phosphatidylcholine 500 mg capsule 500 mg PO DAILY Discontinued Fish Oil 300-500 mg capsule 2 cap PO DAILY Referrals / Follow Up: Axel Montana DO [Med Staff - Active Staff] - See Referral Note (As directed) Carl Conklin DO [Primary Care Provider] - Disposition Disposition (needs filled in before D/C Order can be placed): Home, Self Care Charges/Coding Visit Charges Inpatient E&M: 90514 Disch Hosp
== END 2023-06-06 19:03 | disposition home or self-care (01) ==
LOC: ED 06-06 00:44 → MS3 06-06 01:16
PROVIDERS: Internal Medicine Gastroenterology; Admitting Provider Hospitalist; Emergency Provider Emergency Medicine; PCP Preventive Medicine Occupational Medicine; Visit Provider Internal Medicine
PROC: 0DJ08ZZ Inspection of Upper Intestinal Tract, Via Natural or Artificial Opening Endoscopic (ICD-10-PCS; CPT 43235; principal; 2023-06-06 17:30)
DX: K83.8 Other specified diseases of biliary tract (principal); R93.2 Abnormal findings on diagnostic imaging of liver and biliary tract; K29.00 Acute gastritis without bleeding; E78.5 Hyperlipidemia, unspecified; Z79.83 Long term (current) use of bisphosphonates; Z79.899 Other long term (current) drug therapy; R10.13 Epigastric pain
CPT/HCPCS: 43239; 36415; 74181; 76705; 80053; 81001; 83690; 85025; 85027; 87086; 88305; 88313; 88342; 96361; 96374; 96375; 99221; 99284; J7030; J7120; A4216; G0378; J2405

== ENCOUNTER → 2023-06-19 | Outpatient (CLI) | payer MEDICARE, SELFPAY ==
--- NOTE | 2023-06-19 09:52 | NM_ITS ---
CLINICAL: 63-year-old female with history of epigastric pain. RADIONUCLIDE HEPATOBILIARY SCINTIGRAPHY COMPARISON: Abdominal ultrasound report 06/05/2023, MRI of the abdomen report 06/06/2023 FINDINGS: Following the intravenous administration of 5.4 mCi of 99m Tc Mebrofenin, hepatobiliary images reveal: 1. Relatively prompt and homogeneous radiopharmaceutical concentration is noted by a normal sized liver. No parenchymal defects are identified. 2. Gallbladder activity is identified at 45 minutes post radiopharmaceutical administration. 3. Small intestinal tract is observed at 45 minutes following tracer injection. 4. Washout of the radiopharmaceutical by the hepatic parenchyma appears qualitatively normal. Cholecystokinin (0.02 ug/kg) was administered intravenously over a 30-minute period. The post CCK gallbladder ejection fraction calculated at 20 minutes following Cholecystokinin administration was noted to be < 5% % (normal greater than 35%). NM/Hepatobilliary Img w/Pharm Int IMPRESSION: 1. ABNORMAL 99m Tc Mebrofenin hepatobiliary imaging examination with Cholecystokinin. A. A gallbladder ejection fraction calculated to be less than 35% following the administration of Cholecystokinin is consistent with the presence of functional hepatobiliary disease (gallbladder and/or sphincter of Oddi dyskinesia) and/or organic hepatobiliary disease (chronic acalculous cholecystitis and/or cystic duct syndrome) in patients with intermediate to high pretest probabilities of hepatobiliary illness. (Livan Ellis et al, Journal of Nuclear Medicine 32:1695, 1991). Electronically Signed: Jorje Rodriguez DO at 9:32 EDT ,
== END | disposition home or self-care (01) ==
LOC: NM 09:50
PROVIDERS: PCP Preventive Medicine Occupational Medicine; Referring Provider Internal Medicine Gastroenterology; Visit Provider Internal Medicine Gastroenterology
DX: R10.9 Unspecified abdominal pain (principal)
CPT/HCPCS: 78227; A9537; J2805

== ENCOUNTER 2023-07-18 06:20 | Day surgery (SDC) | payer MEDICARE, SELFPAY ==
--- NOTE | 2023-07-18 06:28 | EKG12_ITS ---
Test Reason : PREOP Blood Pressure : / mmHG Vent. Rate : 070 BPM Atrial Rate : 070 BPM P-R Int : 160 ms QRS Dur : 096 ms QT Int : 398 ms P-R-T Axes : 061 -11 040 degrees QTc Int : 429 ms Normal sinus rhythm Incomplete right bundle branch block Borderline ECG When compared with ECG of 09-OCT-2022 13:05, No significant change was found Confirmed by BECCA EATON, STEPHANIE ([id number]), newspaper editor REID DE LEON ([id number]) on 07/29/2023 11:03:03 AM Referred By: Ralph Raymond Confirmed By:STEPHANIE HUDSON MD
--- NOTE | 2023-07-18 06:40 | PCM.HP.BLA ---
History and Physical Date of Admission: 07/18/23 Intake Vital Signs 06/05/2400:56 07/01/2413:01 Height 5 ft 5 in 5 ft 5 in Weight: 136 lb BMI 22.6 BP 124/71 H Blood Pressure Location Rt brachial Position Sitting Respiration 17 Pulse 84 Pulse Source Monitor Temp 97.2 F L Temp Source Temporal Pulse Oximetry (%) 97 Oxygen Delivery Method room air Intake Visit Reasons: ABNORMAL HIDA Chief Complaint: abnormal HIDA Is patient in pain?: No Allergies celecoxib (From Celebrex) Adverse Reaction (Intermediate, Verified 07/02/23 14:02) chest painmeloxicam (From Mobic) Adverse Reaction (Intermediate, Verified 07/02/23 14:02) chest painalendronate sodium (From Fosamax) Adverse Reaction (Verified 07/02/23 14:02) Other Medications ?Medication ?Instructions ?Recorded ?Confirmed ?Type magnesium 200 mg tablet 400 mg PO DAILY 01/15/21 07/02/23 History cetirizine 10 mg tablet (Allergy 10 mg PO DAILY PRN allergy symptoms 05/04/21 07/02/23 History Relief (cetirizine)) valacyclovir 1 gram tablet 1,000 mg PO DAILY 05/04/21 07/02/23 History ondansetron 4 mg disintegrating 4 mg PO Q8H PRN PRN Nausea #20 tabs 10/09/22 07/02/23 Rx tablet rimegepant 75 mg disintegrating 75 mg PO DAILY PRN migraine 10/09/22 07/02/23 History tablet (Nurtec ODT) headache pantoprazole 40 mg tablet,delayed 40 mg PO DAILY #30 tabs 06/06/23 07/02/23 Rx release (Protonix) ursodiol 250 mg tablet 250 mg PO QHS #30 tabs 06/06/23 07/02/23 Rx vitamin E mixed 400 unit tablet 800 unit PO DAILY 06/06/23 07/02/23 History turmeric root extract 150 tab PO 07/02/23 07/02/23 History mg-preeti root extract 25 mg chewable tablet vitamin D3 25 mcg (1,000 unit)-vit tab PO . 3 times per week 07/02/23 07/02/23 History K2 90 mcg disintegrating tablet (D3 Plus K2 Dots) [facility] Medical History Dilation of bile duct determined by ultrasound Osteopenia Cataract Herpes simplex Anxiety and depression Hyperlipidemia Migraines Chest pain (04/03/21) Migraines Surgical History History of History of hysterectomy Family History (Updated 07/02/23 @ 14:00 by Mirian Emmanuel) Father Heart disease Hypertension Hyperlipidemia Alcoholism Tobacco use disorder S/P CABG (coronary artery bypass graft), Onset Age: 50Brother CAD (coronary artery disease) Alcoholism Tobacco use disorderMother Hypertension Thyroid disorder Social History household members: spouse housing: house Smoking Status: Never smoker alcohol intake: never HPI HPI HPI: Patient is a 63-year-old female here for gallbladder disease. The patient says has been going on for about 2 years. She says that intermittently she has attacks in the right upper quadrant that cause nausea and vomiting and severe pain. She has been seeing Dr. Montana. Ultrasound did not show any gallstones but HIDA was positive for biliary dyskinesia. She reports the pain radiates to the back. Denies fevers or chills or pain currently. ROS General General: No weight change, appetite, fatigue, colon cancer, breast cancer or weakness HEENT HEENT: No difficulty swallowing, eye injury, eye surgery, swollen glands or hoarseness Endo Endocrine: No thyroid disease, diabetes mellitus, thyroid cancer, Hair loss, heat intolerance or cold intolerance Skin Skin: No rash or changing moles Musc Musculoskeletal: Yes arthritis; No back problems, rheumatoid arthritis, gout or joint pain Cardio Cardiovascular: No murmur, pacemaker, heart disease, atrial fibrillation, high blood pressure, heart attack, heart stent, palpitations, shortness of breat with exertion or chest pain Psych Psychiatric: Yes anxiety; No depression or hearing voices Resp Respiratory: No shortness of breath, No sleep apnea, No cough, No COPD, No asthma, No emphysema and No wheezing Gastro Gastrointestinal: Yes abdominal pain, No nausea or vomiting, No diarrhea, No constipation, No blood in stool, No acid reflux, No hemorrhoids, No ulcers, Yes gallbladder problem and No black,tarry stools Bobby Hematologic: No blood thinners, No blood disorders, No bleeding, No anemia and No blood clots Neuro Neurologic: No system reviewed and no additional complaints, except as documented, No as per HPI, No abnormal gait, No abnormal hearing, No abnormal movements, No abnormal speech, No behavioral changes, No burning sensations, No confusion, No convulsions, No disequilibrium, No dizziness, No localized weakness, No frequent falls, No headache(s), No lack of coordination, No loss of vision, No memory loss, No numbness, No other visual disturbances, No radicular pain, No restless legs, No sensory deficit, No syncope, No tingling, No tremor(s), No weakness and No other Exam Const General: cooperative Orientation: alert and oriented x3 HENMT Head: normal to inspection Neck Neck: normal visual inspection and full ROM Chest Chest palpation & inspection: normal inspection of the chest Resp Effort & Inspection: normal respiratory effort Auscultation: clear to auscultation bilaterally Cardio Rate: regular rate Rhythm: regular rhythm GI Inspection: non-distended Palpation: soft and nontender Skin General: no rashes or lesions noted Neuro General: patient alert and patient oriented x3 Extrem General: full ROM Psych Appearance: grossly normal Mental Status: mental status grossly normal Assessment and Plan Assessment and Plan (1) Biliary dyskinesia: Status: Acute Plan: The patient had a HIDA that showed an ejection fraction less than 5%. I discussed biliary dyskinesia with her in detail. I also discussed laparoscopic cholecystectomy to treat this. I discussed the procedure in detail with the patient. I discussed the risks, benefits, and alternatives of the procedure. I discussed the risks including but not limited to bleeding, infection, injury to surrounding organs such as the liver, bile duct, bowels. I did discuss the possibility of having to convert to an open procedure as well as the possibility that if any injuries occurred this may necessitate further surgery at a tertiary care center. I asked her to hold her turmeric for a week before surgery. Ralph Raymond MD Pager: [facility] [address] [place] [address], [address] [place] [address] Office: I have examined the patient and the H&P has been reviewed. There are no clinical changes since date of exam.
[2023-07-18 06:47] VITALS: BP 144/86; PULSE 68; RESP 16; TEMP 37; O2SAT 99; BMI 22.4
[2023-07-18] MEDS: Lactated Ringers 1,000 ML 15 ML IV (06:59)
--- NOTE | 2023-07-18 08:00 | GALL_PTH ---
PATIENT: XANDER PARRA LOC: [facility] [place] [facility] [place][id number] AGE/SX: 63/F ROOM: RE07/18/[address]: Dr. Ralph Raymond MD : 1960 BED: DIS: 07/18/2023 SPEC #: [id number] RECD: 07/18/23 11:56 STATUS: CRUZ STROUD #: [id number] ODALYS: 07/18/23 08:[address]: Ralph Raymond DEPT: SURGICAL PATHOLOGY RECD BY: Davon Campos ENTERED: 07/18/23 13:17 SP TYPE: KAYE MENCHACA DR: Dr. Carl Conklin DO Tissues: Gallbladder, NOS Procedures: Surgery Specimen Level III HEADER OPERATION: Laparoscopic, cholecystectomy with IOC PRE-OP DIAGNOSIS: Biliary dyskinesia TISSUE SUBMITTED: Gallbladder MICROSCOPIC DIAGNOSIS Gallbladder, cholecystectomy: Cholesterolosis and mild chronic cholecystitis. Benign kassy cystic lymph node. AM/mr 07/21/2023 MICROSCOPIC DESCRIPTION Slides are reviewed. GROSS DESCRIPTION Received is one container labeled with the patient's name and designated gallbladder. The specimen consists of a gallbladder measuring 6.5 cm in length and up to 3.0 cm in diameter. The external surface is pink-swan, smooth and glistening for the most part. Focally it is granular, hemorrhagic and contains cautery artifact. The gallbladder contains green-yellow bile and no stones are identified in the container or in the gallbladder. The mucosa shows two swan-yellow polyps consistent with Cholesterolosis each measuring 0.3cm in greatest dimension. The gallbladder wall measures up to 0.2 cm in thickness. Hop Picker sections from the gallbladder, cystic duct and both polyps, entirely submitted in one cassette. MISAEL: 07/18/2023 TC:3 CPT: 80509
[2023-07-18] MEDS: Cefotetan 2 GM in 0.9% NS 100 ML IV (08:10)
--- NOTE | 2023-07-18 08:25 | RAD_ITS ---
STUDY: INTRAOPERATIVE CHOLANGIOGRAM. REASON FOR EXAM: Female, 63 years old. Laparoscopic cholecystectomy. FLUOROSCOPY TIME (if supplied): ( 15.4 seconds ) minutes/seconds. 2.93 mGy. TECHNIQUE: An intraoperative cholangiogram was performed by the surgeon. Imaging was provided. COMPARISON: None. FINDINGS: The common bile duct is unremarkable. No intraluminal filling defect is seen. There is free flow of contrast into the duodenum. RAD/Cholangiogram/ O R,Initial IMPRESSION: Unremarkable intraoperative cholangiogram. Electronically Signed: Dejon Schroeder MD at 13:46 EDT ,
[2023-07-18] MEDS: Bupivacaine Mpf 0.5% 30 ML VIAL (08:52)
[2023-07-18 09:06] VITALS: BP 110/86; BP 144/86; PULSE 67; RESP 16; TEMP 36.5; O2SAT 97
[2023-07-18 09:10] VITALS: BP 116/81; BP 144/86; PULSE 68; RESP 16; O2SAT 98
--- NOTE | 2023-07-18 09:10 | OP.PCM_ITS ---
Report of Operation Date of Procedure: 07/18/23 Pre-Operative Diagnosis: Biliary dyskinesia Post-Operative Diagnosis: Same Surgery/Procedure Performed:: Laparoscopic cholecystectomy with cholangiograms Type of Anesthesia: General/Regional Specimen's removed: Gallbladder Estimated Blood Loss (mL): 5 Description of Procedure: After obtaining informed consent patient was brought back to the operating room. General anesthesia was induced. The abdomen was prepped and draped in usual sterile fashion. A small midline incision was made superior to the umbilicus and deepened to the level of fascia. The fascia was elevated and incised. Next the peritoneum was elevated and incised in the same fashion. Finger sweep was performed and the Waller trocar was placed into the abdomen. The balloon was inflated. The abdomen was inflated to 15 mmHg. Next a camera was introduced into the abdomen and the abdomen was inspected. Next under direct visualization three 5-mm ports were placed one subxiphoid and 2 subcostal. Next the gallbladder was elevated and retracted toward the right shoulder. The peritoneum was stripped from the gallbladder. The infundibulum was located and retracted laterally. Next the triangle of Calot was dissected and the cystic duct and cystic artery were identified. Cholangiograms were performed. The Burch clamp was used to clamp across the infundibulum and the catheter needle was inserted into the gallbladder. Under fluoroscopy contrast was instilled into the gallbladder and the common duct, cystic duct were identified. There w as good filling of the duodenum. There were no filling defects noted in the common bile duct. The clamp was removed as well as the needle and the infundibulum was grasped once more. Three hemolock clips were placed across the cystic duct. The cystic duct was then divided leaving 2 clips on the stump. The cystic artery was clipped and divided in the same fashion. The hook cautery was then used to take the gallbladder off of the gallbladder bed. Hemostasis was obtained. Gallbladder fossa was irrigated and no active bleeding or bile leakage was noted. Next the camera was introduced in the subxiphoid port. An Endopouch bag was placed through the umbilical port and the gallbladder was placed into it. The gallbladder was then removed through the umbilical incision. The camera was then reinserted through the umbilical port. The gallbladder fossa was inspected once more and noted to be hemostatic with no leaking bile. The abdomen was suctioned dry. The 5 mm ports were removed under direct visualization. The umbilical port was then removed and the air was removed from the abdomen. Next using an 0 Vicryl suture the umbilical fascia was closed in a [id number] fashion. The umbilical port site was irrigated local anesthetic was administered to all the incisions. All the incisions were closed with interrupted subcuticular 4-0 Monocryl sutures followed by Steri- Strips and dressings. The patient was awoken and taken to PACU in stable condition. Admit VTE Documentation VTE Mechan Device Prophylaxis: SCD's
--- NOTE | 2023-07-18 09:11 | EX.PCM.DISCH ---
Discharge Instructions Procedure Gallbladder Diet Discharge Diet: Light diet - advance as tolerated Activity Discharge Activity: May Not Drive (for 2-3 days or while taking narcotic pain medications.) and - (Do not drive, work heavy equipment or sign legal documents for 24 hours.) May shower in (days): 1 Lifting Restrictions: 20 lbs for 2 weeks Additional Activity Instructions:: Pain medication may cause nausea. You should typically eat light foods as you take your pain medications. Pain medication may also cause constipation. If this is a problem for you, please discuss with your doctor. Alternate ibuprofen and Tylenol for pain, Ultram for breakthrough pain. Dressing / Incision Call your doctor if your incision/area has: Continuous Slow Oozing, Sudden Increased Bleeding, Increased Pain/ Swelling, Increased Redness and Foul Smelling Discharge Call your doctor if you observe: Fever of 101 or Higher Suture Line Care: Avoid Pulling/Pushing and Avoid Pinching/Bending Remove Dressing in: 2 days Additional Dressing/Incision Instructions:: Leave operative bandaids on for 2 days. When you remove dressing, leave Steri-Strips on until your follow-up appointment, or until the Steri-Strips fall off on their own. Follow Up Care Please Follow Up With: Ralph Raymond MD When: Please call to schedule 2 week follow up appointment. [phone] Test Results: Test results from this visit will be discussed in further detail at your follow-up appointment, if applicable. Discharge Plan Admission Attending Provider: Ralph Raymond Primary Care Provider: Carl Conklin Instructions Print Language: [place] Timorese Discharge Orders/Prescriptions Prescriptions: New tramadol 50 mg Tablet 100 mg PO Q6H PRN PRN (Reason: Pain Score 6-10) 5 Days Qty: 20 0RF No Action magnesium 200 mg tablet 400 mg PO DAILY cetirizine [Allergy Relief (cetirizine)] 10 mg tablet 10 mg PO DAILY PRN (Reason: allergy symptoms) valacyclovir 1 gram tablet 1,000 mg PO DAILY turmeric root-preeti root ext 150-25 mg tablet,chewable 1 tab PO DAILY D3 Plus K2 Dots 25 mcg (1,000 unit)-90 mcg tablet,disintegrating 1 tab PO MOWEFR Nurtec ODT 75 mg tablet,disintegrating 75 mg PO DAILY PRN (Reason: migraine headache) vitamin B complex [B-Complex] Tablet 1 tab PO DAILY vitamin E mixed 400 unit tablet 800 unit PO DAILY Referrals / Follow Up: Carl Conklin DO [Primary Care Provider] - Disposition Disposition (needs filled in before D/C Order can be placed): Home, Self Care
[2023-07-18 09:15] VITALS: BP 144/86; BP 149/90; PULSE 63; RESP 16; O2SAT 99
[2023-07-18 09:25] VITALS: BP 133/81; BP 144/86; PULSE 65; RESP 16; TEMP 36.6; O2SAT 96
[2023-07-18 10:32] VITALS: BP 137/77; BP 144/86; PULSE 65; RESP 16; TEMP 37.1; O2SAT 100
== END 2023-07-18 10:34 | disposition home or self-care (01) ==
LOC: SDC 06:21 → AC 06:22
PROVIDERS: PCP Preventive Medicine Occupational Medicine; Referring Provider Surgery; Visit Provider Surgery
PROC: (CPT 47610; principal; 2023-07-18 07:40)
DX: K82.8 Other specified diseases of gallbladder (principal); E78.5 Hyperlipidemia, unspecified; F41.9 Anxiety disorder, unspecified
CPT/HCPCS: 47563; 00790; 74300; 76000; 88304; 93005; J7120; J2405

== ENCOUNTER → 2023-08-25 | Outpatient (CLI) | payer MEDICARE, SELFPAY ==
[2023-08-25 10:31] LABS: Absolute Neutrophil Count 3.7 X10^3/uL (2.0-7.7); Basophil# 0.01 X10^3/uL; Basophil% 0.2 % (0-1); Eosinophil# 0.04 X10^3/uL; Eosinophils% 0.7 % (0-5); Hematocrit 42.1 % (37-47); Hemoglobin 14.4 g/dL (12.0-15.0); Lymphocyte % 25.2 % (19-41); Mean Corp Hgb Conc 34.2 g/dL (32-36); Mean Corpuscular Hgb 30.6 pg (27.0-32.0); Mean Corpuscular Volume 89.6 fL (81-99); Mean Platelet Vol. 9.7 fl (6.2-12.0); Monocyte# 0.36 X10^3/uL; Monocyte% 6.5 % (0-10); NRBC Flagged by Analyzer 0 % (0-5); Neutrophil # 3.72 X10^3/uL (2.7-7.7); Platelet Count 188 K/mm3 (150-450); RBC Distribution Width CV 12.4 % (11.6-14.6); RBC Distribution Width SD 40.7 fl (35.1-43.9); White Blood Count 5.6 K/mm3 (4.4-11.0)
[2023-08-25 10:38] LABS: Erythrocyte Sedimentation Rate 1 mm/hr (0-30)
[2023-08-25 10:44] LABS: AST(SGOT) 16 U/L (15-37); Alanine Aminotransfer ALT/SGPT 21 U/L (13-56); Alkaline Phosphatase 70 U/L (45-117); Anion Gap 11 (5-15); BUN 10 mg/dL (7-18); BUN/Creat Ratio 12.9 RATIO (10-20); CRP < 2.90 mg/L (0.0-3.0); Calcium,Total 9.4 mg/dL (8.5-10.1); Chloride 102 mmol/L (98-107); Creatinine, Serum 0.77 mg/dL (0.55-1.02); EST Glomerular Filtration Rate 80 mL/min (>60); Est Glom Filt Rate - Afr Amer 96 mL/min (>60); Globulin 3.9 g/dL (2.2-4.2); Glucose 102 mg/dL (74-106); Potassium 3.5 mmol/L (3.5-5.1); Protein, Total 7.9 g/dL (6.4-8.2); Sodium Level 138 mmol/L (136-145)
== END | disposition home or self-care (01) ==
LOC: LAB 09:27
PROVIDERS: PCP Preventive Medicine Occupational Medicine; Referring Provider Internal Medicine Gastroenterology; Visit Provider Internal Medicine Gastroenterology
DX: R53.83 Other fatigue (principal); K58.9 Irritable bowel syndrome, unspecified; R10.9 Unspecified abdominal pain
CPT/HCPCS: 36415; 80053; 85025; 85652; 86140

== ENCOUNTER → 2023-09-03 | Outpatient (CLI) | payer MEDICARE, SELFPAY ==
[2023-09-03 10:25] LABS: Absolute Lymphocyte Count 1.54 X10^3/uL (0.83-4.51); Basophil# 0.02 X10^3/uL; Basophil% 0.3 % (0-1); Eosinophil# 0.16 X10^3/uL; Eosinophils% 2.2 % (0-5); Hematocrit 42.5 % (37-47); Lymphocyte # 1.54 X10^3/ul (0.83-4.51); Lymphocyte % 21.2 % (19-41); Mean Corp Hgb Conc 32.9 g/dL (32-36); Mean Corpuscular Hgb 30.4 pg (27.0-32.0); Mean Corpuscular Volume 92.2 fL (81-99); Mean Platelet Vol. 9.8 fl (6.2-12.0); Monocyte# 0.47 X10^3/uL; Monocyte% 6.5 % (0-10); NRBC Flagged by Analyzer 0 % (0-5); Neutrophil # 5.04 X10^3/uL (2.7-7.7); Neutrophil % 69.5 % (47-70); Platelet Count 175 K/mm3 (150-450); RBC Distribution Width CV 12.9 % (11.6-14.6); Red Blood Count 4.61 M/mm3 (4.2-5.4); White Blood Count 7.3 K/mm3 (4.4-11.0)
[2023-09-03 10:57] LABS: AST(SGOT) 18 U/L (15-37); Alanine Aminotransfer ALT/SGPT 16 U/L (13-56); Albumin, Serum 3.6 g/dL (3.2-5.0); Alkaline Phosphatase 91 U/L (45-117); Anion Gap 5 (5-15); BUN 11 mg/dL (7-18); Bilirubin, Direct 0.14 mg/dL (0.00-0.30); Calcium,Total 9.1 mg/dL (8.5-10.1); Chloride 105 mmol/L (98-107); Cholesterol 206 mg/dL (200); Creatinine, Serum 0.84 mg/dL (0.55-1.02); EST Glomerular Filtration Rate 72 mL/min (>60); Est Glom Filt Rate - Afr Amer 87 mL/min (>60); Globulin 3.6 g/dL (2.2-4.2); Glucose 104 mg/dL (74-106); High Density Lipoprotein 66 mg/dL; Potassium 3.9 mmol/L (3.5-5.1); Protein, Total 7.2 g/dL (6.4-8.2); Sodium Level 139 mmol/L (136-145); Triglycerides 121 mg/dL; Very Low Density Lipoprotein 24 mg/dL (5-40)
== END | disposition home or self-care (01) ==
LOC: LAB 09:58
PROVIDERS: PCP Preventive Medicine Occupational Medicine; Referring Provider Internal Medicine Cardiovascular Disease; Visit Provider Internal Medicine Cardiovascular Disease
DX: R06.02 Shortness of breath (principal); E78.5 Hyperlipidemia, unspecified
CPT/HCPCS: 36415; 80048; 80061; 80076; 83880; 85025

== ENCOUNTER 2023-10-02 07:13 | Outpatient (CLI) | payer SELFPAY ==
--- NOTE | 2023-10-02 07:19 | CT_ITS ---
STUDY: CT CHEST WITHOUT CONTRAST REASON FOR EXAM: Female, 63 years old. SCREEN RADIATION DOSAGE (If Supplied By Facility): CTDIvol = ( 12.19 ) mGy, DLP = ( 170.56 ) mGycm TECHNIQUE: Transaxial imaging was performed without the administration of intravenous contrast material. Cardiac over read examination. Individualized dose optimization techniques were used for this CT. COMPARISON: No relevant priors. FINDINGS: CHEST The lungs are normal. There is no demonstrated pleural abnormality. There are calcifications of the coronary arteries. Normal mediastinum. Normal hilar regions. Normal unenhanced pulmonary arteries. Atherosclerotic calcific plaques of the descending thoracic aorta. Normal osseous structures. There is no demonstrated abnormality of the visualized upper abdomen. CT/Limited Chest CT Cardiac Only IMPRESSION: Coronary artery calcification. Electronically Signed: Dejon Schroeder MD at 15:03 EDT ,
--- NOTE | 2023-10-14 06:27 | CA.SCORE ---
Calcium Scoring Date of Study:: 10/02/23 Indications Indications: Family history Coronary Calcium Scoring: High-resolution Computed Tomographic imaging of the chest was performed on [10/02/2023], with particular attention paid to the coronary arteries. Images from the examination were analyzed for the presence and extent of coronary artery calcification , using coronary calcium quantification software. The patient tolerated the procedure well and there were no complications. The results of the coronary calcification analysis are provided below. Findings Coronary Artery Left Main (LM): 0 Left Anterior Descending (LAD): 0 Left Circumflex (LCX): 0 Right Coronary Artery (RCA): 0 Total Agatston Score: 0 Percentile Rankin Calcium Scoring Interpretation: Different methods to categorize the overall amount of coronary plaque. Overall amount CAC SIS Visual of coronary plaque P1 Mild -100 <2 1-2 vessels with mild amount of plaque P2 Moderate 101-300 3-4 1-2 vessels with moderate amount, 3 vessels with mild amount of plaque P3 Severe 301-999 5-7 3 vessels with moderate amount, 1 vessel with severe amount of plaque P4 Extensive >1000 >8 2-3 vessels with severe amount of plaque Conclusion: No atherosclerotic plaquing noted
== END 2023-10-02 23:59 | disposition home or self-care (01) ==
LOC: CT 07:17
PROVIDERS: PCP Preventive Medicine Occupational Medicine; Referring Provider Internal Medicine Cardiovascular Disease; Visit Provider Internal Medicine Cardiovascular Disease
DX: R06.02 Shortness of breath (principal); I25.10 Atherosclerotic heart disease of native coronary artery without angina pectoris
CPT/HCPCS: 75571; 76380

== ENCOUNTER → 2023-10-14 | Outpatient (CLI) | payer MEDICARE, SELFPAY ==
--- NOTE | 2023-10-14 12:44 | STEWCON_ITS ---
Reason For Study: Shortness of breath Stress Results Stress Echocardiogram-Vel Protocol with Protocol: Definity Maximum Predicted HR: 155 bpm Target HR: 132 bpm % Maximum Predicted HR: 99 % Heart Stage Duration Rate BP Comment (mm:ss) (bpm) Baseline 78 116/76Patient denies chest pain Stage 1 3:00 116 120/80Patient denies chest pain Stage 2 3:00 141 138/88Patient denies chest pain Patient complains of leg fatigue. She denies chest pain or Stage 3 3:00 153 / shortness of breath. Recovery 96 120/78Patient denies chest pain. Definity 3.5 ml total used. Stress Duration: 9:00 mm:ss Maximum Stress HR: 153 bpm Baseline Echocardiogram Findings Stress Echo Wall motion Data Resting WM Intermediate WM Stress WM Time Measurements MV dec time: 0.19 sec Doppler Measurements & Calculations MV E max mary kate: 71.0 cm/sec MV dec slope: 384.0 cm/sec2 PA V2 max: 96.7 cm/sec MV A max mary kate: 87.2 cm/sec MV E/A: 0.81 TR max mary kate: 254.0 cm/sec TR max P.8 mmHg ECHO/Stress Test Echo W/Contrast Interpretation Summary Exercise stress echo. 63-year-old lady with a history of shortness of breath. Lying resting EKG demonstrates normal sinus rhythm with a rate of 68 bpm normal intervals are noted resting blood pressure is 116/76 mmHg. The patient exercised according to the r egular Vel protocol for total duration of 7 minutes and 10 seconds. The maximum heart rate obtained was 151 bpm which was 100% of max impacted heart rate maximum workload was 10.1 metabolic equival ents. The patient maintained sinus rhythm throughout the recording. At rest with no ST or T wave changes noted to suggest ischemia and at peak exercise no ST or T wave changes were noted sugges t ischemia. The peak blood pressure was noted to be 138/88 which was a normal blood pressure respons e to exercise the test was terminated due to the target heart rate being achieved. Stress echocardiogram. Resting echocardiogram was performed with and without Definity demonstrating ej ection fraction of 55%. No wall motion abnormalities were noted the stress echocardiogram demonstr ated improvement in left ventricular systolic function with peaking of ejection fraction of 65%. Th e gradient across the tricuspid valve was approximately 25 mmHg. No wall motion abnormalities were no carole suggest ischemia. Conclusion: Exercise stress echocardiogram with no evidence of ischemia at high workload no clinical angina noted. Ordering Physician: Oswald Bledsoe Referring Physician: Oswald Bledsoe Performed By:
== END | disposition home or self-care (01) ==
PROVIDERS: PCP Preventive Medicine Occupational Medicine; Referring Provider Internal Medicine Cardiovascular Disease; Visit Provider Internal Medicine Cardiovascular Disease
DX: R06.02 Shortness of breath (principal)
CPT/HCPCS: 93017; 93350; Q9957; A4216; C8928

== ENCOUNTER → 2024-05-26 | Outpatient (CLI) | payer MEDICARE, SELFPAY ==
--- NOTE | 2024-05-26 12:17 | BI_ITS ---
EXAM: SCRN MAMM (CAD)W/SAM BILAT 05/26/2024 CLINICAL HISTORY: F, Age 64 y/o , SCREENING TECHNIQUE: Bilateral screening digital breast tomosynthesis with 2D and 3D images. Computer aided detection. COMPARISON: Prior exam(s) dated 04/15/2023, 03/06/2022. FINDINGS: TISSUE DENSITY: The breast tissue is composed of scattered area of fibroglandular density. Bilateral Breast Mammographic Findings: No significant masses, calcifications or other abnormalities are identified. BI/SCRN MAMM (CAD)W/SAM BILAT IMPRESSION: Right Breast: BIRADS 1 NEGATIVE. Left Breast: BIRADS 1 NEGATIVE. OVERALL FINAL ASSESSMENT: BIRADS 1 NEGATIVE. RECOMMENDATION: Routine annual follow-up in 1 Year A letter with findings and recommendations will be mailed to the patient. Reading Location: [facility]
== END | disposition home or self-care (01) ==
LOC: OPBI 12:16
PROVIDERS: PCP Preventive Medicine Occupational Medicine; Referring Provider Preventive Medicine Occupational Medicine; Visit Provider Preventive Medicine Occupational Medicine
DX: Z12.31 Encounter for screening mammogram for malignant neoplasm of breast (principal)
CPT/HCPCS: 77063; 77067

== ENCOUNTER 2024-05-31 05:27 | Day surgery (SDC) | payer MEDICARE, SELFPAY ==
--- NOTE | 2024-05-25 15:59 | PAT.ANE_ITS ---
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 When Was Last Pacemaker Check QUESTION #4 FULL TEXT: You/Your Family Experience fever (hyperthermia) with Anesthesia Last Oral Intake Last Oral intake: Last Oral Intake NPO since Meds taken in AM with sips of water? Meds patient instructed to take am of surgery PONV PONV - fire investigation manager: PONV - fire investigation manager Female Yes 05/25/24 15:39 HX of Motion Sickness No 05/25/24 15:39 HX of N/V After Surgery No 05/25/24 15:39 Non-Smoker Yes 05/25/24 15:39 Duration of Surgery greater No 05/25/24 15:39 than 60 minutes Number of Risk Factors 2 05/25/24 15:39 PONV Score Moderate Risk 05/25/24 15:39 Height & Weight Height & Weight: Anesthesia: Height & Weight Height 5 ft 5 in 02/19/24 14:25 Respiratory Assessment Respiratory Assessment - fire investigation manager: Respiratory Tract Infection Hx - fire investigation manager Hx Respiratory Tract Infection No 05/25/24 15:39 STOP Sleep Apnea STOP Sleep Apnea - fire investigation manager: STOP Sleep Apnea - fire investigation manager Hx Hypertension No 05/25/24 15:39 Hx Sleep Apnea No 05/25/24 15:39 CPAP No 05/25/24 15:39 BIPAP Do you snore loudly (louder No 05/25/24 15:39 than talking or can be heard Do you often feel tired/ No 05/25/24 15:39 fatigued/ sleepy during daytime? Has anyone observed you stop No 05/25/24 15:39 breathing during sleep? STOP Results Negative 05/25/24 15:39 QUESTION #5 FULL TEXT : Do you snore loudly (louder than talking or can be heard through closed doors)? 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 Specify any problems Hx of Preganancy in last 3 No 05/25/24 15:39 Months Nurse Filling Out Transfusion DSCHRIBER 05/25/24 15:39 & Questions: Date: 05/25/24 04 15:39 Time: 15:40 05/25/24 15:39 Patient unable to answer at this time (ie. confused, unrespo /Reproduction History /Reproductive History - fire investigation manager: /Reproductive Hx- fire investigation manager Hx Now No 05/25/24 15:39 Gestational Age (in weeks): EDC: Hx Hx Para Hx Section SAB No 05/25/24 15:39 PFSH Medical History (Updated 05/25/24 @ 15:45 by Estrellita Solis) Tinnitus Wears glasses Cardiology follow-up encounter History of stress test Family history of coronary artery disease Anxiety Dilation of bile duct determined by ultrasound Fatty liver Back pain Osteopenia Abdominal pain Herpes simplex Hyperlipidemia Migraines Home Medications ?Medication ?Instructions ?Recorded ?Last Taken ?Type magnesium 200 mg tablet 400 mg PO DAILY 01/15/21 Unk nown History cetirizine 10 mg tablet (Allergy 10 mg PO DAILY PRN al lergy symptoms 05/04/21 Unknown History Relief (cetirizine)) rimegepant 75 mg disintegrating 75 mg PO DAILY PRN moiz bonny 10/09/22 Unknown History tablet (Nurtec ODT) headache vitamin E mixed 400 unit tablet 800 unit PO DAILY 05/12 08/03 Unknown History vitamin D3 25 mcg (1,000 unit)-vit 1 tab PO MOWEFR 05/ 22/24 Unknown History K2 90 mcg disintegrating tablet (D3 Plus K2 Dots) vitamin B complex (B-Complex 1 tab PO DAILY 07/10/23 U nknown History tablet) calcium carbonate (Calcium 600) 600 mg PO QDAY 5 Unknown History krill 1 cap PO DAILY 05/25/24 Unkn own History [id number]-sae-[id number]-jdw-astax 1,500 mg-165 mg-67.5 mg capsule (Krill Oil ([employer] 3 and 6)) Allergy/AdvReac Type Severity Reaction Status Date / Time escitalopram (From Lexapro) AdvReac Severe Chest Verified 05/25/24 15:37 tightness celecoxib (From Celebrex) AdvReac Intermediate chest pain Verified 05/25/24 15:37 meloxicam (From Mobic) AdvReac Intermediate chest pain Verified 05/25/24 15:37 alendronate sodium (From AdvReac Other Verified 05/25/24 15:37 Fosamax) Family History Father Heart disease Hypertension Hyperlipidemia Alcoholism Tobacco use disorder S/P CABG (coronary artery bypass graft), Onset Age: 50 Brother CAD (coronary artery disease) Alcoholism Tobacco use disorder Mother Hypertension Thyroid disorder Cancer Surgical History (Updated 05/25/24 @ 15:45 by Estrellita Solis) Hx of right cataract extraction Hx of left cataract extraction S/P laparoscopic cholecystectomy Hx of laparoscopy History of esophagogastroduodenoscopy (EGD) History of History of hysterectomy Social History household members: spouse housing: house Smoking Status: Never smoker alcohol intake: never Audit: Pertinent Findings Pertinent Findings EKG Perinent findings: September 03, 2023. Sinus rhythm. RSR in V1. Low voltage EKG may be sign of possible pulmonary disease. Stress test pertinent findings: October 14, 2023. Patient achieved 10.1 METS. Ejection fraction at rest is 55%. Increases to 65% with stress. No wall motion abnormalities noted to suggest ischemia. Consult pertinent findings: February 19, 2024. [place] 1. Family history of coronary artery disease?acute-stress test as above. No further testing. Recommendation Anesthesia Recommendation Anesthesia recommendation: OPTIMIZED for anesthesia
[2024-05-31] VITALS (7 sets, daily range): BP systolic 97–133; BP diastolic 64–79; PULSE 64–74; RESP 16; TEMP 36.2–36.8; O2SAT 93–98; BMI 23.1
--- NOTE | 2024-05-31 06:30 | EGD_PTH ---
PATIENT: XANDER PARRA LOC: EN U#:[id number] AGE/SX: 64/F ROOM: RE05/31/[address]: Dr. Axel Montana DO : 1960 BED: DIS: 05/31/2024 SPEC #: [id number] RECD: 05/31/24 12:05 STATUS: CRUZ REChaya #: [id number] ODALYS: 05/31/24 06:[address]: Axel Montana DEPT: SURGICAL PATHOLOGY RECD BY: Stiven Balderas ENTERED: 05/31/24 12:05 SP TYPE: EGD BIOPSY NIKOLAI DR: Dr. aCrl Conklin DO Tissues: A - Pyloric sphincter B - Esophagus, NOS Procedures: Immunohistochemical Stains Surgery Specimen Level IV HEADER OPERATION: EGD, biopsy PRE-OP DIAGNOSIS: Fatigue, irritable bowel syndrome, abdominal pain and gastric ulcer TISSUE SUBMITTED: A- Pyloric sphincter biopsy, B- Distal esophagus biopsy MICROSCOPIC DIAGNOSIS A. Pyloric sphincter, biopsy: * Pyloroduodenal mucosa with mild chronic inflammation * No morphologic evidence of Helicobacter pylori organisms B. Distal esophagus, biopsy: * Benign squamous epithelium * Oxyntocardiac type mucosa with mild chronic inflammation, negative for goblet cells MICROSCOPIC DESCRIPTION Slides are reviewed. GROSS DESCRIPTION A. Received in formalin in a container labeled with the patient's name, date of , and pyloric sphincter biopsy are multiple swan-pink fragments of mucosal tissue measuring 1.3 x 0.5 x 0.3 cm in aggregate. Submitted in toto in A1. B. Received in formalin in a container labeled with the patient's name, date of , and distal esophagus biopsy are 2 swan-pink fragments of mucosal tissue, each measuring 0.4 x 0.3 x 0.2 cm. Submitted in toto in B1. [facility] 06/02/2024 CPT:28500q8,43131
--- NOTE | 2024-05-31 06:45 | PCM.HP.STD ---
HPI - General General Date of Admission: 05/31/24 Date of Service: 05/31/24 Chief Complaint: gastric ulcer surviallence HPI Narrative XANDER PARRA, is a 64 F who presents XANDER PARRA, is a 63 F who presents to the office today for follow up. PMH HLD, anxiety, migraine [place] [facility] 03.31.21 cardiac workup WNL save elevated DDimer for which transfer to [facility] was recommended and she declined and signed out [facility]MA [facility] 3.03.03 with chest burning. Workup not concerning for cardiac etiology. Discharged with PPI and Carafate. *BGI established .12.01 with chest burning/tightness that has resolved with use of PPI and Carafate start. Weight loss of 12lbs with onset 8 months prior. Continue PPI and carafate ? EGD scheduled but cancelled by patient. Clinic follow up also cancelled. [facility] ED 10.09.22 with epigastric pain and nausea for several days. PCP recently seen who started PPI which she had previously stopped taking. Discharged Carafate and Zofran OV 11.21.22 having episodes of tightness under her ribs and epigastric pain. Previous workup ordered but not performed as she was feeling better. PPI made her feel dizzy. Symptoms are improved with use of Ativan; likely mental health related etiology ? Biochemical ESR, CRP, amylase, lipase, GAME, FLACO, ANCA, YARI comp, celiac without pertinent abnormality. ? US RUQ 12.25.22 hepatic measurement 12cm with fatty infiltration. ? GET 12.25.22 29.38 minutes (12-56). Contact 01.06.23 with results. She was supposed to get HIDA today but was recently exposed to COVID. Agreeable to further hepatic workup. ? Elastography 01.23.23 hepatic stiffness 7kPa ? Biochemical 01.23.23 plt, haptoglobin, LFT, triglyceride, ceruloplasmin, copper, AMA, ASM, hepatitis, HIV without pertinent abnormality.? Cholesterol H268, LDL H169, FIB4 1.15 Contact 03.05.23 with results; no concerns. ? HIDA not performed OV 05.21.23 pt reports having dull pin-point epigastric pain 2-3 times a week, feels bloated during these episodes of pain. Pt reports she has not been having heartburn, and is no longer taking Carafate or Pantoprazole. EGD 06.06.23 Normal esophagus. Acute gastritis. Biopsied. Normal second portion of the duodenum. OV 08.25.23 Pt presents in visible discomfort. Pt reports that she had her gall bladder removed on July 17 2023, reports that symptoms from before cholecystectomy continue. Pt reports daily nausea, burning/stabbing epigastric pain, shaking. Pt reports alternating diarrhea and constipation. Pt reports that she is having a hard time eating. OV 12.23.23 pt reports that she is feeling well overall and denies GI symptoms of concern at this time. [facility] History Tinnitus Wears glasses Cardiology follow-up encounter History of stress test Family history of coronary artery disease Anxiety Dilation of bile duct determined by ultrasound Fatty liver Back pain Osteopenia Abdominal pain Herpes simplex Hyperlipidemia Migraines Home Medications ?Medication ?Instructions ?Recorded ?Last Taken ?Type magnesium 200 mg tablet 400 mg PO DAILY 01/15/21 Unknown History cetirizine 10 mg tablet (Allergy 10 mg PO DAILY PRN allergy symptoms 05/04/21 Unknown History Relief (cetirizine)) rimegepant 75 mg disintegrating 75 mg PO DAILY PRN migraine 10/09/22 Unknown History tablet (Nurtec ODT) headache vitamin E mixed 400 unit tablet 800 unit PO DAILY 06/06/23 Unknown History vitamin D3 25 mcg (1,000 unit)-vit 1 tab PO MOWEFR 07/02/23 Unknown History K2 90 mcg disintegrating tablet (D3 Plus K2 Dots) vitamin B complex (B-Complex 1 tab PO DAILY 07/10/23 Unknown History tablet) calcium carbonate (Calcium 600) 600 mg PO QDAY 05/21/24 Unknown History krill 1 cap PO DAILY 05/25/24 Unknown History [id number]-astax 1,500 mg-165 mg-67.5 mg capsule (Krill Oil ([place] 3 and 6)) Allergy/AdvReac Type Severity Reaction Status Date / Time escitalopram (From Lexapro) AdvReac Severe Chest Verified 05/25/24 15:37 tightness celecoxib (From Celebrex) AdvReac Intermediate chest pain Verified 05/31/24 05:55 meloxicam (From Mobic) AdvReac Intermediate chest pain Verified 05/31/24 05:55 alendronate sodium (From AdvReac Other Verified 05/31/24 05:55 Fosamax) Family History Father Heart disease Hypertension Hyperlipidemia Alcoholism Tobacco use disorder S/P CABG (coronary artery bypass graft), Onset Age: 50 Brother CAD (coronary artery disease) Alcoholism Tobacco use disorder Mother Hypertension Thyroid disorder Cancer Surgical History Hx of right cataract extraction Hx of left cataract extraction S/P laparoscopic cholecystectomy Hx of laparoscopy History of esophagogastroduodenoscopy (EGD) History of History of hysterectomy Social History household members: spouse housing: house Smoking Status: Never smoker alcohol intake: never ROS Constitutional Constitutional: Denies fatigue, fever(s), poor appetite, weight gain or weight loss Gastrointestinal Gastrointestinal: Denies belching, bloating, change in bowel habits, change in stool character, chewing difficulty, coffee ground emesis, constipation, cramping, diarrhea, dyspepsia, dysphagia, early satiety, excessive flatus, fecal incontinence, heartburn, hematemesis, hematochezia, hemorrhoids, loose stools, melena, nausea, odynophagia, rectal bleeding, tenesmus, vomiting or weight changes Vital Signs Vital Signs Vital Signs: 05/31/24 05:56 05/31/24 05:56 Temperature 98.2 F Temperature Source Temporal Pulse Rate 71 Respiratory Rate 16 Respiratory Pattern Normal Blood Pressure 133/79 H Blood Pressure Mean 97 Blood Pressure Source Monitor Blood Pressure Position Semi-Fowlers Blood Pressure Location Right Arm Pulse Ox 98 Oxygen Delivery Method Room Air Weight Weight: 138 lb 14.259 oz Body Mass Index (BMI) 23.1 Physical Exam Const alert, oriented x3, no apparent distress and healthy appearing General Appearance: cooperative GI normal to inspection, nondistended, normoactive bowel sounds, soft to palpation, non-tender and non-distended Percussion: normal to percussion Rectal Exam: deferred Assessment & Plan Assessment/Plan (1) Gastric ulcer: PLAN: Assessment and Plan Assessment and Plan (1) Fatigue: Status: Acute Plan: She was actually given antidepression medicine which made her symptoms worse. She is off her antidepressant medicine at this time. She is feeling a lot better. (2) IBS (irritable bowel syndrome): Status: Acute (3) Abdominal pain and Gastric ulcer: Status: Chronic Qualifiers: Abdominal location: epigastric Qualified Code(s): R10.13 - Epigastric pain Plan: The differential diagnosis for abdominal pain does include irritable bowel syndrome, gastroparesis, bile acid reflux from gallbladder dysmotility and duodenal gastric reflux. Differential diagnosis also includes H. pylori infection, less likely peptic ulcer disease. She also has elements of esophageal dysmotility because the pain starts in her mid abdomen and radiates up to the esophagus. She underwent an upper endoscopy was discovered to have normal esophagus but she did have some thickening at the base of her stomach and mild pyloric stenosis. Biopsies of the antrum and prepyloric area were consistent with intestinal metaplasia. We will put her on famotidine therapy on a daily basis and repeat her endoscopy in May 2024.
--- NOTE | 2024-05-31 06:48 | PCM.PRE.AN2 ---
ASA Classification* ASA Classification ASA Classification: 2 Assessment & Plan Anesthesia* Anesthesia Assessment Anesthesia Assessment: Discussed sedation and/or anesthesia options, risks, benefits, and alternatives with patient/parents/legal guardian/POA. Questions invited. The patient/parents/legal guardian/POA seems to understand and agrees to proceed with anesthesia plan. Reviewed the physical assessment, medical history, allergy history and patient home medications list prior to surgery/procedure/anesthetic and documented any changes. Performed airway and anesthesia risk assessments. Anesthesia Type Anesthesia Type: MAC Anesthesia Focused Assessment* Temperature: 98.2 F Pulse Rate: 71 Blood Pressure: 133/79 Respiratory Rate: 16 Pulse Ox: 98 Airway Assessment Mouth opens: >3 cm Mallampati Score: II Focused Labs Anesthesia Preop lab: CBC WBC 7.3 K/mm3 (4.4-11.0) 09/03/23 10:02 09/03/23 RBC 4.61 M/mm3 (4.2-5.4) 09/03/23 10:02 09/03/23 Hgb 14.0 g/dL (12.0-15.0) 09/03/23 10:02 09/03/23 Hct 42.5 % (37-47) 09/03/23 10:02 09/03/23 Plt Count 175 K/mm3 (150-450) 09/03/23 10:02 09/03/23 CHEMISTRY Potassium 3.9 mmol/L (3.5-5.1) 09/03/23 10:02 09/03/23 Sodium 139 mmol/L (136-145) 09/03/23 10:02 09/03/23 BUN 11 mg/dL (7-18) 09/03/23 10:02 09/03/23 Creatinine 0.84 mg/dL (0.55-1.02) 09/03/23 10:02 09/03/23 Glucose 104 mg/dL (74-106) 09/03/23 10:02 09/03/23 TSH 1.27 uIU/mL (0.358-3.74) 09/11/13 09:30 09/11/13 COAG PT 12.0 SECONDS (11.7-14.9) 03/17/16 17:10 03/17/16 Pre-Assessment Diagnosis/Proposed Procedure Planned Operative Procedure(s): EGD Anesthesia History 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 When Was Last Pacemaker Check QUESTION #4 FULL TEXT: You/Your Family Experience fever (hyperthermia) with Anesthesia Last Oral Intake Last Oral intake: Last Oral Intake NPO since 22:30 05/31/24 05:56 Meds taken in AM with sips of water? 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 Female Yes 05/25/24 15:39 HX of Motion Sickness No 05/25/24 15:39 HX of N/V After Surgery No 05/25/24 15:39 Non-Smoker Yes 05/25/24 15:39 Duration of Surgery greater No 05/25/24 15:39 than 60 minutes Number of Risk Factors 2 05/25/24 15:39 PONV Score Moderate Risk 05/25/24 15:39 Height & Weight Height & Weight: Anesthesia: Height & Weight Height 5 ft 5 in 05/31/24 05:56 Weight: 63 kg 05/31/24 05:56 Body Mass Index (BMI) 23.1 05/31/24 05:56 Respiratory Assessment Respiratory Assessment - wood boring machine operator: Respiratory Tract Infection Hx - wood boring machine operator Hx Respiratory Tract Infection No 05/25/24 15:39 STOP Sleep Apnea STOP Sleep Apnea - wood boring machine operator: STOP Sleep Apnea - wood boring machine operator Hx Hypertension No 05/27/24 11:22 Hx Sleep Apnea No 05/25/24 15:39 CPAP No 05/25/24 15:39 BIPAP Do you snore loudly (louder No 05/25/24 15:39 than talking or can be heard Do you often feel tired/ No 05/25/24 15:39 fatigued/ sleepy during daytime? Has anyone observed you stop No 05/25/24 15:39 breathing during sleep? STOP Results Negative 05/25/24 15:39 QUESTION #5 FULL TEXT : Do you snore loudly (louder than talking or can be heard through closed doors)? 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 Specify any problems Hx of Preganancy in last 3 No 05/25/24 15:39 Months Nurse Filling Out Transfusion DSCHRIBER 05/25/24 15:39 & Questions: Date: 05/25/24 04 15:39 Time: 15:40 05/25/24 15:39 Patient unable to answer at this time (ie. 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: /Reproductive Hx- wood boring machine operator Hx Now No 05/25/24 15:39 Gestational Age (in weeks): EDC: Hx Hx Para Hx Section SAB No 05/25/24 15:39 PFSH Medical History Tinnitus Wears glasses Cardiology follow-up encounter History of stress test Family history of coronary artery disease Anxiety Dilation of bile duct determined by ultrasound Fatty liver Back pain Osteopenia Abdominal pain Herpes simplex Hyperlipidemia Migraines Home Medications ?Medication ?Instructions ?Recorded ?Last Taken ?Type magnesium 200 mg tablet 400 mg PO DAILY 01/15/21 Unknown History cetirizine 10 mg tablet (Allergy 10 mg PO DAILY PRN allergy symptoms 05/04/21 Unknown History Relief (cetirizine)) rimegepant 75 mg disintegrating 75 mg PO DAILY PRN migraine 10/09/22 Unknown History tablet (Nurtec ODT) headache vitamin E mixed 400 unit tablet 800 unit PO DAILY 06/06/23 Unknown History vitamin D3 25 mcg (1,000 unit)-vit 1 tab PO MOWEFR 07/02/23 Unknown History K2 90 mcg disintegrating tablet (D3 Plus K2 Dots) vitamin B complex (B-Complex 1 tab PO DAILY 07/10/23 Unknown History tablet) calcium carbonate (Calcium 600) 600 mg PO QDAY 05/21/24 Unknown History krill 1 cap PO DAILY 05/25/24 Unknown History [id number]-astax 1,500 mg-165 mg-67.5 mg capsule (Krill Oil ([place] 3 and 6)) Allergy/AdvReac Type Severity Reaction Status Date / Time escitalopram (From Lexapro) AdvReac Severe Chest Verified 05/25/24 15:37 tightness celecoxib (From Celebrex) AdvReac Intermediate chest pain Verified 05/31/24 05:55 meloxicam (From Mobic) AdvReac Intermediate chest pain Verified 05/31/24 05:55 alendronate sodium (From AdvReac Other Verified 05/31/24 05:55 Fosamax) Family History Father Heart disease Hypertension Hyperlipidemia Alcoholism Tobacco use disorder S/P CABG (coronary artery bypass graft), Onset Age: 50 Brother CAD (coronary artery disease) Alcoholism Tobacco use disorder Mother Hypertension Thyroid disorder Cancer Surgical History Hx of right cataract extraction Hx of left cataract extraction S/P laparoscopic cholecystectomy Hx of laparoscopy History of esophagogastroduodenoscopy (EGD) History of History of hysterectomy Social History household members: spouse housing: house Smoking Status: Never smoker alcohol intake: never Review of Systems (Anesthesia) ROS Narrative System reviewed and no additional complaints, except as documented.
--- NOTE | 2024-05-31 07:06 | OP.CCLET_ITS ---
05/31/2024 Carl Conklin [address] [place] [address] Re : Upper GI endoscopy procedure for Naida Basurto Dear Dr. Conklin This procedure was performed on Friday, May 31, 2024. My impressions and recommendations are as follows: Impressions : - Z-line irregular, 39 cm from the incisors. Biopsied. - Gastric mucosal variant. Biopsied. - Normal examined duodenum. Recommendations : - Discharge patient to home. - Resume previous diet. - Continue present medications. - Await pathology results. - Repeat upper endoscopy for surveillance. My findings are described in the full procedure note, which is enclosed. If I can be of further assistance, please feel free to contact me at . Sincerely, Axel Montana, 05/31/2024 7:05:12 AM This report has been signed electronically.
--- NOTE | 2024-05-31 07:06 | OP.EGD_ITS ---
Patient Name: Naida Basurto Procedure Date: 05/31/2024 6:30 AM Date of : 1960 Age: 64 Procedure: Upper GI endoscopy Indications: Heartburn, Suspected Hui's esophagus, Peptic ulcer, Chronic gastric ulcer Providers: Axel Montana DO Referring MD: Axel Montana DO Medicines: Monitored Anesthesia Care Patient Profile: This is a 64 year old female. Refer to note in patient chart for documentation of history and physical. Patient has symptoms. Complications: No immediate complications. Procedure: Pre-Anesthesia Assessment: - Prior to the procedure, a History and Physical was performed, and patient medications and allergies were reviewed. The patient is competent. The risks and benefits of the procedure and the sedation options and risks were discussed with the patient. All questions were answered and informed consent was obtained. Patient identification and proposed procedure were verified by the physician in the pre-procedure area. Mental Status Examination: alert and oriented. Airway Examination: normal oropharyngeal airway and neck mobility. Respiratory Examination: clear to auscultation. CV Examination: normal. Prophylactic Antibiotics: The patient does not require prophylactic antibiotics. Prior Anticoagulants: The patient has taken no anticoagulant or antiplatelet agents except for NSAID medication. ASA Grade Assessment: II - A patient with mild systemic disease. After reviewing the risks and benefits, the patient was deemed in satisfactory condition to undergo the procedure. The anesthesia plan was to use monitored anesthesia care (MAC). Immediately prior to administration of medications, the patient was re-assessed for adequacy to receive sedatives. The heart rate, respiratory rate, oxygen saturations, blood pressure, adequacy of pulmonary ventilation, and response to care were monitored throughout the procedure. The physical status of the patient was re-assessed after the procedure. After obtaining informed consent, the endoscope was passed under direct vision. Throughout the procedure, the patient's blood pressure, pulse, and oxygen saturations were monitored continuously. The Endoscope was introduced through the mouth, and advanced to the second part of duodenum. The upper GI endoscopy was accomplished without difficulty. The patient tolerated the procedure well. Scope In: 6:55:51 AM Scope Out: 6:59:21 AM Total Procedure Duration Time 0 hours 3 minutes 30 seconds Findings: The Z-line was irregular and was found 39 cm from the incisors. Biopsies were taken with a cold forceps for histology. Verification of patient identification for the specimen was done. Estimated blood loss was minimal. Localized mild mucosal variance characterized by congestion and scalloping was found in the prepyloric region of the stomach and at the pylorus. Biopsies were taken with a cold forceps for histology. Biopsies were taken with a cold forceps for Helicobacter pylori testing. Verification of patient identification for the specimen was done. Estimated blood loss was minimal. The examined duodenum was normal. Impression: - Z-line irregular, 39 cm from the incisors. Biopsied. - Gastric mucosal variant. Biopsied. - Normal examined duodenum. Recommendation: - Discharge patient to home. - Resume previous diet. - Continue present medications. - Await pathology results. - Repeat upper endoscopy for surveillance. Procedure Code(s): --- Professional --- 31298, Esophagogastroduodenoscopy, flexible, transoral; with biopsy, single or multiple CPT copyright 2021 [employer]. All rights reserved. The codes documented in this report are preliminary and upon board turner review may be revised to meet current compliance requirements. Axel Montana DO 05/31/2024 7:05:12 AM This report has been signed electronically. Number of Addenda: 0 Note Initiated On: 05/31/2024 6:30 AM
--- NOTE | 2024-05-31 07:10 | PCM.POST.ANE ---
Anesthesia: Postop Eval I Current Vital Signs Temperature: 97.2 F Pulse Rate: 68 Blood Pressure: 97/64 Respiratory Rate: 16 Pulse Ox: 97 Oxygen Delivery Method: Room Air Assessment Airway patent: Yes Spontaneous unlabored respirations: Yes Mental status: Asleep nausea: No Vomiting: No Anesthesia Complication: No Fluid Hydration Crystalloid volume administer (ml): 30 Total IV fluid infused: 30 Progress Note Anesthesia document: Postop Eval 1 completed: Yes
--- NOTE | 2024-05-31 07:56 | PCM.POSTANE2 ---
Anesthesia Postop Eval I Sum Postop Eval Completion status Anesthesia document: Postop Eval 1 completed: Yes Anesthesia Postop Eval I Summary Anesthesia Postop Eval I Summary: Anesthesia Postop Eval I: Assessment Summary Airway patent Yes 05/31/24 07:11 [email or web address] Spontaneous unlabored Yes 05/31/24 07:11 [email or web address] respirations Mental status Asleep 05/31/24 07:11 [email or web address] nausea No 05/31/24 07:11 [email or web address] Vomiting No 05/31/24 07:11 [email or web address] Anesthesia Postop Eval I: Fluid Summary Crystalloid volume administer 30 05/31/24 07:11 [email or web address] (ml) Colloids volume administered ( ml) Blood Product volume administered (ml) Total IV fluid infused 30 05/31/24 07:11 [email or web address] Anesthesia Postop Eval I: Summary Notes Anesthesia Complication No 05/31/24 07:11 [email or web address] Anesthesia Complication Comment: Post-operative progress note Anesthesia: Postop Eval II Evaluation Mental status: Awake Pain Level: 0 nausea: No Vomiting: No
== END 2024-05-31 07:39 | disposition home or self-care (01) ==
LOC: EN 05:28 → AC 05:31
PROVIDERS: PCP Preventive Medicine Occupational Medicine; Referring Provider Preventive Medicine Occupational Medicine; Visit Provider Internal Medicine Gastroenterology
PROC: 0DJ08ZZ Inspection of Upper Intestinal Tract, Via Natural or Artificial Opening Endoscopic (ICD-10-PCS; CPT 43235; principal; 2024-05-31 06:25)
DX: K25.7 Chronic gastric ulcer without hemorrhage or perforation (principal); K58.2 Mixed irritable bowel syndrome; R53.83 Other fatigue; Z90.49 Acquired absence of other specified parts of digestive tract
CPT/HCPCS: 43239; 88305; 88342; A4216; J2405

== ENCOUNTER 2024-06-22 11:00 | Outpatient (RCR) | payer MEDICARE, SELFPAY ==
--- NOTE | 2024-05-27 14:25 | HP.PTEVAL_ITS ---
Patient's Visit Information Visit Information Visit Information: XANDER PARRA is a 64 year old F referred to Physical Therapy by Dr. Bakari Rivera DO with a diagnosis of R SCIATICA AND R HIP PAIN. Date of Evaluation: 05/27/24 Physical Therapist: Tanna Crespo, PT, Cert MDT Visit Plan Frequency: 2-3x /Week Duration: 4-6 Weeks Plan: POSTURE CORRECTION/STRENGTHENING, INSTRUCTION IN APPROPRIATE BODY MECHANICS AND ACTIVITY MODIFICATIONS. DLS STARTING WITH A NEUTRAL SPINE PROGRESSING ROM TOLERATED. LAISHA LE ROM, STRETCHING AND STRENGTHENING. HEP INSTRUCTION. Subjective Subjective: Work/Leisure: RETIRED Present symptoms: R LOW BACK, R THIGH, R LEG, R FOOT AND DIGITS 4 AND 5. TINGLING R LOWER LEG, NUMBNESS 4TH ADN 5TH TOES Present since: ABOUT 2 YEARS AGO Pain Scale: WORST 4/10, LEAST 1/10 Currently: 2/10 Is it getting better, worse or staying the same: GETTING WORSE Commenced as a result of: NO APPARENT REASON Symptoms at onset: NUMBNESS 4TH AND 5TH TOES Worse: SITTING, LYING ON R SIDE, WALKING ON UNEVEN GROUND, WALING UP AND DOWN HILLS, TWISTING, BENDING Better: ICE ON LOW BACK OR UNDER KNEE, SAUNA, WARM BATH Disturbed sleep: YES Previous history/Previous treatment: H/O CHRONIC LBP AND R HIP ISSUES. INTERMITTENT H/O R HIP LOCKING. LONG H/O CHIROPRACTIC TREATMENTS. NO BACK OR HIP SX. NO PRIOR H/O BACK OR HIP INJECTIONS. Treatment this episode: PCP CONSULT, PT, NEURO CONSULT, ORTHO CONSULT, 2 CHIROPRACTORS, PODIATRY CONSULT, MASSAGE THERAPY. ALSO HAD AN EPISODE OF CARE IN PT FOR R KNEE PAIN IN ADDITION TO THESE TREATMENTS FOR R HIP PAIN AND SCIATICA. NO PAIN MGMT CONSULTS OR TREATMENT. NO SURGICAL PROCEEDURES. R KNEE INJECTIONS WITHOUT BENEFIT (BONE ON BONE). NO BACK OR HIP INJECTIONS. Coughing/sneezing/straining: NEGATIVE FOR INCREASED PAIN. Gait: NORMAL EVEN WHEN PAINFUL - CAN PUSH THROUGH. Bowel or Bladder Dysfunction: NO Accidents: NO Unexplained weight loss: NO Imaging: R HIP AND PELVIS X-RAY 05/21: FINDINGS: BONES/JOINTS: Mild degenerative changes of the right hip joint. No acute fracture. No dislocation. SOFT TISSUES: Unremarkable. LUMBAR X-RAY: 03/31/23 - IMPRESSION: Normal x-ray examination of the lumbar spine. PMH/Recent major surgery: ENDOSCOPY PENDING FRIDAY WITH DR. ROUSE FOR PRE- CANCEROUS CELLS OF STOMACH. GALLBLADDER REMOVED LAST SUMMER. MIGRAINES. Objective Objective: Sitting/Standing Posture: NORMAL LORDOSIS. NO RELEVANT LATERAL LUMBAR SHIFT. Active Correction of posture: BETTER - DECREASES LE SX'S INCLUDING FOOT NUMBESS. Other Observations: INDEP GAIT AND TRANSFERS WITH NO GROSS DEVIATIONS NOTED. Sensory deficit: DECREASED LIGHT TOUCH SENSATION R LATERAL LEG AND R LATERAL FOOT AND DIGITS 3, 4 AND 5 ROM deficit: MILD LAISHA HS AND CALF TIGHTNESS Motor deficit: R HIP 4-/5, KNEE EXT 4/5, KNEE FLEX 4/5, ANKLE 5/5. L LE 5/5. Reflexes: LAISHA LE DTR'S 2+/5. OTHER: PATIENT IS ABLE TO HEEL WALK AND TOE WALK WITHOUT UE ASSIST. Dural Signs: + R LE Lumbar mvmt loss: flex - NIL - INCREASES R BACK, HIP AND THIGH. ext - MOD - NE R SG - MIN - INCREASES R LOW BACK - NW L SG - MIN - INCREASES R LOW BACK AND R HIP AND THIGH - W Core strength: FAIR Palpation: TENDERNESS WITH PALPATION OF R LUMBAR PARASPINALS, R BUTTOCK, GREATER TROCH AND ALONG PROXIMAL IT BAND REGIONS. Balance/Special Test Scores Lower Extremity Functional Score: 63 Goals Goal 1:: DECREASE C/O R BACK AND LE SX'S BY AT LEAST 50% TO EASE ADL'S Goal Time Frame: 4-6 Weeks Goal 2:: IMPROVE BENDING, SITTING, R SDLY AND SLEEP FUNCTION ALONG WITH TOLERANCE FOR WALKING ON UNEVEN SURFACES AND UP AND DOWN HILLS WITH AT LEAST 8 POINT IMPROVEMENT IN LEFS SCORE Goal Time Frame: 4-6 Weeks Goal 3:: INSTRUCT IN PROPHYLAXIS Goal Time Frame: 4-6 Weeks Rehabilitation Potential Physical Therapy Diagnosis: CORE AND R LE WEAKNESS AND STIFFNESS WITH ALTERED R LE SENSATION. Rehabilitation Potential: Good Anticipated Interventions Patient/Client Instruction: Educate patient on: Condition, Plan of Care and Risk Factors For the Purpose of:: To improve self management Therapeutic Exercise to Include: Strength training, Body mechanics, Postural training, Flexibilty training, Neuromotor development and Dynamic Lumbar Stabilization For the Purpose of:: To decrease pain, To improve muscle performance and motor function, To increase tolerance to activity/condition/position, To improve ability of physical actions for home/community/work/leisure, To increase flexibility/ROM and To improve self management TENS: Yes IF ES: Yes Cryotherapy (ice pack, ice massage): Yes Thermo therapy (hot pack): Yes Ultrasound (thermal/non thermal): Yes For the Purpose of:: To decrease pain and To improve nutrient delivery to tissue Text: Thank you for the opportunity to evaluate your patient. For Medicare and Medicare HMO plans, please review the plan of care and approve it. It will need to be FAXED BACK to us at [phone] for Medicare purposes. For Medicare only, by signing this I certify the plan of care. Please let me know if there are questions or concerns regarding this plan of care. Physician Signature: Date:
--- NOTE | 2024-11-29 20:16 | HP.PT.NRP ---
Patient Information Patient Information: XANDER PARRA was seen in my office for initial evaluation on 05/27/24. The following Plan of Care was established for this patient: POC Established Initial Frequency: 2-3x /Week Initial Duration: 4-6 Weeks Anticipated Interventions Patient/Client Instruction: Educate patient on: Condition, Plan of Care and Risk Factors For the Purpose of:: To improve self management Therapeutic Exercise to Include: Strength training, Body mechanics, Postural training, Flexibilty training, Neuromotor development and Dynamic Lumbar Stabilization For the Purpose of:: To decrease pain, To improve muscle performance and motor function, To increase tolerance to activity/condition/position, To improve ability of physical actions for home/community/work/leisure, To increase flexibility/ROM and To improve self management TENS: Yes IF ES: Yes Cryotherapy (ice pack, ice massage): Yes Thermo therapy (hot pack): Yes Ultrasound (thermal/non thermal): Yes For the Purpose of:: To decrease pain and To improve nutrient delivery to tissue Last Seen Last Seen: This patient was last seen in our office 06/22/24. Pertinent comments regarding their Physical therapy will appear below: It has been my pleasure to see this patient for a total of 5 visits. This patient has not returned to Physical Therapy for more visits and is appropriate to return to MD for further follow-up as needed. At this point I will be discontinuing this patient from physical therapy. I would be happy to see this patient again in the future if found appropriate by the physician. Thank you! Tanna Crespo, PT, Cert MDT Balance/Gait/Functional tests Balance/Special Test Scores Lower Extremity Functional Score: 63
== END 2024-06-22 19:00 | disposition home or self-care (01) ==
LOC: PT 11:00
PROVIDERS: PCP Preventive Medicine Occupational Medicine; Referring Provider Orthopaedic Surgery; Visit Provider Orthopaedic Surgery
DX: M25.551 Pain in right hip (principal); M54.31 Sciatica, right side
CPT/HCPCS: 97035; 97162; 97530

== ENCOUNTER 2024-08-31 16:02 | Emergency (ER) | payer MEDICARE, SELFPAY ==
[2024-08-31 16:03] VITALS: BP 137/75; PULSE 82; RESP 20; TEMP 36.3; O2SAT 99; BMI 23.1
[2024-08-31 16:45] LABS: Hematocrit 40.9 % (37-47); Hemoglobin 14.1 g/dL (12.0-15.0); Immature Granulocytes Count 0.020 X10^3/uL (0.0-0.0); Mean Corp Hgb Conc 34.5 g/dL (32-36); Mean Corpuscular Volume 89.1 fL (81-99); Mean Platelet Vol. 9.5 fl (6.2-12.0); NRBC Flagged by Analyzer 0 % (0-5); Platelet Count 192 K/mm3 (150-450); RBC Distribution Width CV 12.4 % (11.6-14.6); RBC Distribution Width SD 40.3 fl (35.1-43.9); Red Blood Count 4.59 M/mm3 (4.2-5.4); White Blood Count 7.5 K/mm3 (4.4-11.0)
--- NOTE | 2024-08-31 16:54 | EDS_ITS ---
HPI History of Present Illness Chief Complaint: Flank Pain [facility] Medical History Tinnitus Wears glasses Cardiology follow-up encounter History of stress test Family history of coronary artery disease Anxiety Dilation of bile duct determined by ultrasound Fatty liver Back pain Osteopenia Abdominal pain Herpes simplex Hyperlipidemia Migraines Home Medications Medication Instructions Recorded Last Taken Type magnesium 200 mg tablet 400 mg PO DAILY 01/15/21 Unk nown History cetirizine 10 mg tablet (Allergy 10 mg PO DAILY PRN al lergy symptoms 05/04/21 Unknown History Relief (cetirizine)) rimegepant 75 mg disintegrating 75 mg PO DAILY PRN moiz bonny 10/09/22 Unknown History tablet (Nurtec ODT) headache vitamin E mixed 400 unit tablet 800 unit PO DAILY 05/12 08/03 Unknown History vitamin D3 25 mcg (1,000 unit)-vit 1 tab PO MOWEFR Unknown History K2 90 mcg disintegrating tablet (D3 Plus K2 Dots) vitamin B complex (B-Complex 1 tab PO DAILY 07/10/23 U nknown History tablet) calcium carbonate (Calcium 600) 600 mg PO QDAY 5 Unknown History krill 1 cap PO DAILY 05/25/24 Unkn own History [id number] 1,500 mg-165 mg-67.5 mg capsule (Krill Oil ([place] 3 and 6)) Allergy/AdvReac Type Severity Reaction Status Date / Time escitalopram (From Lexapro) AdvReac Severe Chest Verified 08/31/24 16:04 tightness celecoxib (From Celebrex) AdvReac Intermediate chest pain Verified 08/31/24 16:04 meloxicam (From Mobic) AdvReac Intermediate chest pain Verified 08/31/24 16:04 alendronate sodium (From AdvReac Other Verified 08/31/24 16:04 Fosamax) Family History Father Heart disease Hypertension Hyperlipidemia Alcoholism Tobacco use disorder S/P CABG (coronary artery bypass graft), Onset Age: 50 Brother CAD (coronary artery disease) Alcoholism Tobacco use disorder Mother Hypertension Thyroid disorder Cancer Surgical History Hx of right cataract extraction Hx of left cataract extraction S/P laparoscopic cholecystectomy Hx of laparoscopy History of esophagogastroduodenoscopy (EGD) History of History of hysterectomy Social History household members: spouse housing: house Smoking Status: Never smoker alcohol intake: never EXAM Physical Exam Const Vital Signs: 08/31/24 16:03 08/31/24 17:28 08/31/24 18:00 Temperature 97.4 F L Temperature Source Oral Pulse Rate 82 65 72 Respiratory Rate 20 H 18 15 Blood Pressure 137/75 H 149/81 H 149/72 H Blood Pressure Mean 95 103 97 Pulse Ox 99 99 99 Oxygen Delivery Method Room Air Room Air 08/31/24 19:00 Temperature Temperature Source Pulse Rate 69 Respiratory Rate 15 Blood Pressure 138/74 H Blood Pressure Mean 95 Pulse Ox 99 Oxygen Delivery Method Room Air MDM MDM MDM Narrative Medical decision making narrative: HISTORY OF PRESENT ILLNESS: Chief complaint: Flank pain 64-year-old female presents with flank pain. Notes acute onset of right-sided flank pain that radiates to the groin. No history of kidney stones. No falls or trauma. She denies hematuria, dysuria. Denies chest pain or shortness of breath. Notes history of cholecystectomy. She also secondarily complains of bilateral leg pain that started approximately 1 to 2 hours ago as well. States she is concerned that she may have blood clots. Patient denies history of blood clots, recent surgery, chemotherapy or estrogen use. REVIEW OF SYSTEMS: Pertinent positives: Flank pain, bilateral leg Pertinent negatives: Chest pain, fever, urinary symptoms PHYSICAL EXAM: Nursing triage notes reviewed, Vital signs reviewed Constitutional: please see mdm HENT: MMM Eyes: Pupils equal round and reactive to light, Extraocular muscles intact Neck: No stridor, no JVD, full neck ROM Lungs: Clear to auscultation, No wheezing or rales. No increased work of breathing, no conversational dyspnea, no accessory muscle use, no nasal flaring. No respiratory distress noted Heart: Regular rate and rhythm, No murmurs, No rubs and No gallops, 2+ distal pulses (radial, femoral, posterior tibial) in all extremities Abdomen: Soft, there is no tenderness, rigidity, rebound or guarding, no obvious peritoneal signs, no palpable pulsatile abdominal masses, no auscultated abdominal bruit : Right CVA tenderness noted Extremities: No edema Neuro: No new focal neurological deficits, cranial nerves II through XII intact, 5/5 strength in all present extremities. Intact sensation to light touch in all present extremities, 2+ reflexes bilateral patella tendons. Skin: No rash or lesions noted MEDICAL DECISION MAKING: Chief Complaint: please see HPI External records reviewed: Reviewed prior imaging studies. No recent CT scans of the abdomen or pelvis noted Factors affecting care: Hyperlipidemia peptic ulcer disease migraine Social determinants of health: none History obtained from others: none Consults: none MDM Narrative: Patient was initially hemodynamically stable, afebrile and nontoxic-appearing. Exam with right CVA tenderness. Abdomen was benign. No right upper quadrant TTP. No pulsatile abdominal masses. Symmetric pulses throughout I considered the following differential diagnosis: Nephrolithiasis, pyelonephritis, UTI, AAA, musculoskeletal etiology I obtained a broad lab and imaging workup. To further determine if the patient was suffering from a life-threatening etiology. Initially treated with IV fluids, Zofran and Toradol. ALL IMAGES (IF OBTAINED) HAVE BEEN PERSONALLY REVIEWED AND INTERPRETED BY MYSELF. CBC without leukocytosis, severe anemia, no thrombocytopenia. CMP without evidence of acute kidney injury, significant electrolyte abnormality, anion gap to suggest end organ hypo-perfusion, no evidence of metabolic acidosis with a normal bicarbonate, no evidence of hepatobiliary obstructive pathology. Bilateral duplex ultrasounds negative for acute DVT CT scan abdomen pelvis negative for acute intra-abdominal pathology CMP without evidence of acute kidney injury, significant electrolyte abnormality, anion gap to suggest end organ hypo-perfusion, no evidence of metabolic acidosis with a normal bicarbonate, no evidence of hepatobiliary obstructive pathology. Urinalysis no evidence of UTI suggest pyelonephritis or cystitis The synthesis of the patient's history, physical exam, labs images suggest no acute life or limb tract etiology. Specifically no sign of AAA, nephrolithiasis, pyelonephritis or other life-threatening explanation of her symptoms. The patient and/or family, caregivers express understanding. The patient and/or family, caregivers agrees with the plan. Shared decision making: I will have a discussion with the patient and or visitors regarding risk/benefits of further testing or admission. They will be made aware of of the risk/benefits inherent in this decision they will be given the opportunity to voice understanding. Total critical care time today provided was at least 0 minutes. This excludes separately billable procedures. Critical care time (if documented) is secondary to the patient having high probability of clinically significant/life threatening deterioration in the patient's condition which required my urgent intervention. Impression: 1. Acute right flank pain 2. Dehydration Dispo: Discharge home This note was generated with y prime dictation software. It may contain incorrect words, spelling, and punctuation that were not noted in review of the chart prior to signing. Lab Data Labs: Laboratory Results - last 24 hr 08/31/24 08/31/24 16:30 18:59 WBC 7.5 RBC 4.59 Hgb 14.1 Hct 40.9 MCV 89.1 MCH 30.7 MCHC 34.5 RDW Std Deviation 40.3 RDW Coeff of [place] 12.4 Plt Count 192 MPV 9.5 Immature Gran % (Auto) 0.300 Neut % (Auto) 59.3 Lymph % (Auto) 30.7 [place] % (Auto) 7.0 Eos % (Auto) 2.4 Baso % (Auto) 0.3 Absolute Neuts (auto) 4.5 Absolute Lymphs (auto) 2.31 Nucleated RBC % 0 Sodium 137 Potassium 4.0 Chloride 102 Carbon Dioxide 21.6 Anion Gap 14 BUN 10 Creatinine 0.82 Estim Creat Clear Calc 60.73 Est GFR (MDRD) Non-Af 79 BUN/Creatinine Ratio 12.1 Glucose 103 H Calcium 9.7 Total Bilirubin 0.83 AST 23 ALT 16 Alkaline Phosphatase 84 Total Protein 7.5 Albumin 4.4 Globulin 3.1 Albumin/Globulin Ratio 1.4 Urine Color Yellow Urine Clarity Clear Urine pH 8.0 Ur Specific [place] 1.010 Urine Protein Negative Urine Glucose (UA) Normal Urine Ketones 15 H Urine Occult Blood Negative Urine Nitrite Negative Urine Bilirubin Negative Urine Urobilinogen Normal Ur Leukocyte Esterase Negative Radiography Diagnostic Testing: Clinical Impression(s) from Imaging Studies Abdomen/Pelvis CT 08/31/24 17:14 IMPRESSION: No acute intra-abdominal process. No obstructive uropathy. Extensive colonic diverticulosis without acute diverticulitis. Reading Location: [facility] Discharge Plan Triage Chief Complaint: Flank Pain ED Provider: Aldo Crawford Dx/Rx/DC Orders Prescriptions: No Action magnesium 200 mg tablet 400 mg PO DAILY cetirizine [Allergy Relief (cetirizine)] 10 mg tablet 10 mg PO DAILY PRN (Reason: allergy symptoms) D3 Plus K2 Dots 25 mcg (1,000 unit)-90 mcg tablet,disintegrating 1 tab PO MOWEFR calcium carbonate [Calcium 600] 600 mg calcium (1,500 mg) tablet 600 mg PO QDAY Nurtec ODT 75 mg tablet,disintegrating 75 mg PO DAILY PRN (Reason: migraine headache) vitamin B complex [B-Complex] Tablet 1 tab PO DAILY vitamin E mixed 400 unit tablet 800 unit PO DAILY Krill Oil ([place] 3 and 6) 1,500-165-67.5 mg capsule 1 cap PO DAILY Primary Care Provider: [facility] Referrals: Ramos East MD [Primary Care Provider] - Print Language: Slovak
--- NOTE | 2024-08-31 17:14 | CT_ITS ---
PROCEDURE: ABDOMEN/PELVIS W IV CONT ONLY 08/31/2024 REASON FOR EXAM: RIGHT FLANK PAIN TECHNIQUE: ABDOMEN/PELVIS W IV CONT ONLY Coronal and Sagittal reconstruction series were provided. CONTRAST: 100 mL of Isovue 370 One or more dose reduction techniques were used (e.g., Automated exposure control, adjustment of the mA and/or kV according to patient size, use of iterative reconstruction technique. RADIATION DOSE SUMMARY: DLP: 390 mGycm COMPARISON: None FINDINGS: Limited sections of the lung bases demonstrate no focal pulmonary mass or consolidations. The liver, spleen, pancreas, and both adrenal glands demonstrate no acute findings. 1.4 x 1.4 cm cyst within the left hepatic lobe. The gallbladder is unremarkable. The stomach is unremarkable. The small bowel loops are not dilated. The appendix is not clearly identified, although there are no secondary signs of appendicitis. No colonic obstruction. Colonic diverticulosis without acute diverticulitis. There is no free air or significant free fluid. The kidneys are unremarkable. The urinary bladder is distended. The pelvic structures are intact. There is no solid pelvic mass. No significant lymphadenopathy. The aorta and IVC demonstrate no acute findings. Moderate atherosclerosis of the abdominal vasculature. Visualized osseous structures demonstrate no acute abnormality. CT/Abdomen/Pelvis W IV Cont ONLY IMPRESSION: No acute intra-abdominal process. No obstructive uropathy. Extensive colonic diverticulosis without acute diverticulitis. Reading Location: [id number]
[2024-08-31 17:18] LABS: AST(SGOT) 23 U/L (<=31); Alanine Aminotransfer ALT/SGPT 16 U/L (<=34); Albumin, Serum 4.4 g/dL (3.4-4.8); Alkaline Phosphatase 84 U/L (35-104); Anion Gap 14 (5-15); BUN 10 mg/dL (4-19); BUN/Creat Ratio 12.1 RATIO (10-20); Calcium,Total 9.7 mg/dL (7.6-11.0); Carbon Dioxide 21.6 mmol/L (21.0-32.0); Chloride 102 mmol/L (98-108); Estimated Creatinine Clearance 60.73 ml/min (50-250); Globulin 3.1 g/dL (2.2-4.2); Glucose 103 mg/dL (70-99); Potassium 4.0 mmol/L (3.3-5.1)
[2024-08-31] MEDS: 0.9% Normal Saline (1000mL) 1,000 ML 1000 ML IV (17:26)
[2024-08-31 17:28] VITALS: BP 149/81; PULSE 65; RESP 18; O2SAT 99
--- NOTE | 2024-08-31 17:41 | US_ITS ---
PROCEDURE: VENOUS DUPLEX IMAG/JOEL EXTREM 08/31/2024 REASON FOR EXAM: F 64 y/o TECHNIQUE: VENOUS DUPLEX IMAG/JOEL EXTREM COMPARISON: None. FINDINGS: There is no intraluminal echogenicity to suggest the presence of a deep venous thrombosis. Appropriate respiratory variation, augmentation and venous compression is noted. No visualized abnormality in the area of "lump" as directed by the patient. Small simple fluid collection which measures 1.6 x 0.5 cm in the region of the medial left knee. US/Venous Duplex Imag/Joel Extrem IMPRESSION: No evidence of DVT. Medial left knee simple fluid collection. Reading Location: [id number]
[2024-08-31 18:00] VITALS: BP 149/72; PULSE 72; RESP 15; O2SAT 99
[2024-08-31 19:00] VITALS: BP 138/74; PULSE 69; RESP 15; O2SAT 99
[2024-08-31 19:07] LABS: Mucous, Urine 0 SEEN /hpf (<or=2+)
[2024-08-31 19:09] LABS: Color, Urine Yellow (Yellow); Glucose, Dipstick Normal (Normal); Ketone-Dipstick 15 mg/dl (Negative); Leukocyte Esterase-Dipstick Negative /ul (Negative); Nitrite-Dipstick Negative (Negative); Occult Blood-Urine Negative /ul (Negative); Protein-Dipstick Negative (Negative); Specific Gravity, Urine 1.010 (1.002-1.030); Urine Bilirubin Dipstick Negative (Negative)
[2024-08-31 20:05] LABS: Red Blood Cells-Urine 0-5 SEEN /hpf (0-5); Squamous Epithelial Cells - UA 0-5 SEEN /hpf (5-10)
[2024-08-31 20:46] VITALS: BP 138/88; PULSE 62; RESP 18; TEMP 36.6; O2SAT 99
== END 2024-08-31 20:46 | disposition home or self-care (01) ==
PROVIDERS: Emergency Provider Emergency Medicine; PCP Internal Medicine; Visit Provider Emergency Medicine
DX: R10.9 Unspecified abdominal pain (principal); E86.0 Dehydration; M79.604 Pain in right leg; M79.605 Pain in left leg
CPT/HCPCS: 74177; 80053; 81001; 85025; 93970; 96361; 96374; 96375; 99283; Q9967; J2405